=== PATIENT | male | born 1990 | race Caucasian/White ===

== ENCOUNTER 2016-05-10 21:04 | Emergency (ER) | payer OTHER ==
[2016-05-10 21:20] VITALS: BP 135/99; PULSE 78; TEMP 99; BMI 22.6
[2016-05-10] MEDS ORDERED: LORazepam 1 MG TABLET PO ONE (21:31)
--- NOTE | 2016-05-10 21:31 | PDOC ---
History of Present Illness - General History Source: Patient Exam Limitations: No Limitations - History of Present Illness Initial Comments: 05/10/16 21:48 The patient is a 25 year old male with significant past medical history of acid reflux, anxiety, and panic attacks (since his childhood) who presents to the ED with heart palpitations prior to arrival. Patient reports he was in his usual state of health, sitting down playing video games when he suddenly felt some chest discomfort with palpitations. He states his symptoms are not consistent with his previous panic attacks and thus became concern. He denies any drug or etoh use. Patient states he has not seen a psychiatrist in the past several years for his anxiety and does not take any medications for his anxiety. Patient denies and homicidal/suicidal ideation. At time of evaluation, patient does not have any complaints and states he does not palpitations. The patient denies fever, chills, cough, lightheadedness, diaphoresis, SOB, and chest pain. The patient denies abdominal pain, nausea, vomiting, and diarrhea. Allergies: NKDA Social History: Denies alcohol, tobacco, or drug use. Past Surgical History: None reported PCP: Dr. Justo Paez <Brittni Peña - Last Filed: 05/10/16 22:39> <Ho Macedo - Last Filed: 05/10/16 22:44> - General Chief Complaint: Psychiatric Stated Complaint: ANXIETY Past History <Brittni Peña - Last Filed: 05/10/16 22:39> - Past Medical History HTN: Yes ((?)) Psychiatric Problems: Yes (anxiety, depression) Suicide Attempt (Hx): Yes - Immunization History Immunization Up to Date: Yes - Psycho/Social/Smoking Cessation Hx Anxiety: Yes Suicidal Ideation: No Smoking Status: No Smoking History: Never smoked Have you smoked in the past 12 months: No Number of Cigarettes Smoked Daily: 0 Information on smoking cessation initiated: No Hx Alcohol Use: No Drug/Substance Use Hx: No Substance Use Type: None <Ho Macedo - Last Filed: 05/10/16 22:44> - Past Medical History Allergies/Adverse Reactions: Allergies Allergy/AdvReac Type Severity Reaction Status Date / Time No Known Allergies Allergy Verified 05/10/16 21:20 Home Medications: Ambulatory Orders Famotidine [Pepcid -] 40 mg PO DAILY #30 tablet 02/27/17 Review of Systems - Review of Systems Able to Perform ROS?: Yes Comments:: 05/10/16 21:48 CONSTITUTIONAL: Absent: fever, no chills, no fatigue EYES: Absent: visual changes ENT: Absent: ear pain, no sore throat CARDIOVASCULAR: +palpitations, chest discomfort Absent: chest pain RESPIRATORY: Absent: cough, no SOB GI: Absent: abdominal pain, no nausea, no vomiting, no constipation, no diarrhea GENITOURINARY: Absent: dysuria, no frequency, no hematuria MUSKULOSKELETAL: Absent: back pain, no arthralgia, no myalgia SKIN: Absent: rash NEURO: Absent: headache PSYCHIATRIC: Absent: anxiety, depression, suicidal or homicidal ideation, hallucinations <Brittni Peña - Last Filed: 05/10/16 22:39> *Physical Exam - Vital Signs Last Vital Signs Temp Pulse Resp BP Pulse Ox 99 F 78 20 135/99 100 05/10/16 21:15 05/10/16 21:15 05/10/16 21:15 05/10/16 21:15 05/10/16 21:15 - Physical Exam Comments: 05/10/16 21:48 GENERAL: Well-appearing, well-nourished. No apparent distress. HEENT: Normocephalic, atraumatic. PERRL, EOM intact. CARDIOVASCULAR: Normal S1, S2. Regular rate and rhythm. PULMONARY: Clear to auscultation bilaterally. ABDOMEN: Soft, non-distended, non-tender. EXTREMITIES: Normal ROM in all four extremities. No gross deformities. SKIN: Warm, dry. No rash NEUROLOGICAL: No focal neurological deficits. PSYCHIATRIC: Cooperative. Good eye contact. Appropriate mood and affect. <Brittni Peña - Last Filed: 05/10/16 22:39> - Vital Signs Last Vital Signs Temp Pulse Resp BP Pulse Ox 99 F 78 20 135/99 100 05/10/16 21:15 05/10/16 21:15 05/10/16 21:15 05/10/16 21:15 05/10/16 21:15 <Ho Macedo - Last Filed: 05/10/16 22:44> Heart Score/ECG Review - ECG Impressions Comment:: 05/10/16 22:00 NSR @71bpm <CaseyBrittni - Last Filed: 05/10/16 22:39> ED Treatment Course - Medications Given in the ED: ED Medications Discontinued Medications Generic Name Dose Route Start Last Admin Trade Name Helen PRN Reason Stop Dose Admin Lorazepam 2 mg 05/10/16 21:31 05/10/16 21:42 Ativan - PO 05/10/16 21:32 2 mg ONCE ONE Administration <CaseyBrittni - Last Filed: 05/10/16 22:39> Medical Decision Making - Medical Decision Making 05/10/16 22:39 I advised patient to wait and be evaluated by butcher helper for his anxiety and patient refuses to wait to be evaluated by psychiatrist and states that he wants to go home. <Brittni Peña - Last Filed: 05/10/16 22:39> *DC/Admit/Observation/Transfer - Attestations Scribe Attestion: 05/10/16 21:48 Documentation prepared by Brittni Peña, acting as medical assistant for Ho Macedo MD, MD <Brittni Peña - Last Filed: 05/10/16 22:39> - Discharge Dispostion Admit: No <Ho Macedo - Last Filed: 05/10/16 22:44> Diagnosis at time of Disposition: Panic anxiety syndrome GERD (gastroesophageal reflux disease) Qualifiers: Esophagitis presence: without esophagitis Qualified Code(s): K21.9 - Gastro- esophageal reflux disease without esophagitis - Discharge Dispostion Condition at time of disposition: Fair - Prescriptions Prescriptions: Famotidine [Pepcid -] 40 mg PO DAILY #30 tablet - Referrals Referrals: Kendrick Costa MD [Staff Physician] - Justo Paez MD [Primary Care Provider] - - Patient Instructions Printed Discharge Instructions: Panic Disorder, DI for Gastroesophageal Reflux Disease (GERD) Additional Instructions: recommended a Psychiatric Evaluation. Patient refuses to wait. He did want the office phone number.
[2016-05-10] MEDS ORDERED: LORazepam 0.5 MG TABLET ONE (21:39)
--- NOTE | 2016-05-11 13:11 | EKG ---
Test Reason : Blood Pressure : / mmHG Vent. Rate : 071 BPM Atrial Rate : 071 BPM P-R Int : 128 ms QRS Dur : 096 ms QT Int : 380 ms P-R-T Axes : 046 039 029 degrees QTc Int : 412 ms NORMAL SINUS RHYTHM EARLY REPOLARIZATION WHEN COMPARED WITH ECG OF 30-JAN-2013 19:01, NO SIGNIFICANT CHANGE WAS FOUND Confirmed by PEREZ HAMPTON MD ([id number]) on 05/11/2016 1:11:34 PM Referred By: Confirmed By:PEREZ HAMPTON MD
== END 2016-05-10 22:55 | disposition home or self-care (01) ==
LOC: SUPCPDRO 21:04 → JER 21:04
DX: F41.0 Panic disorder [episodic paroxysmal anxiety] (principal); R00.2 Palpitations; F41.9 Anxiety disorder, unspecified; K21.9 Gastro-esophageal reflux disease without esophagitis
CPT/HCPCS: 93005; 93010; 99282-25

== ENCOUNTER 2016-06-03 08:45 | Emergency (ER) | payer SELFPAY ==
[2016-06-03 08:49] VITALS: BP 127/81; PULSE 64; TEMP 98; BMI 23.7
[2016-06-03] MEDS ORDERED: IBUPROFEN 400 MG TABLET (FP) PO ONE ×3 (09:07→09:13)
--- NOTE | 2016-06-03 09:24 | PDOC ---
History of Present Illness - General Chief Complaint: Pain Stated Complaint: PAIN IN LEFT WRIST Time Seen by Provider: 06/03/16 08:50 History Source: Patient - History of Present Illness Occurred: reports: other Upper Extremity Pain Location: left: wrist Past History - Past Medical History Allergies/Adverse Reactions: Allergies Allergy/AdvReac Type Severity Reaction Status Date / Time No Known Allergies Allergy Verified 06/03/16 08:49 Home Medications: Ambulatory Orders Famotidine [Pepcid -] 40 mg PO DAILY #30 tablet 05/10/16 Arm Brace [Wrist Brace] 1 each ASDIR #1 each 06/03/16 HTN: Yes ((?)) Psychiatric Problems: Yes (anxiety, depression) Suicide Attempt (Hx): Yes - Immunization History Immunization Up to Date: Yes - Psycho/Social/Smoking Cessation Hx Anxiety: Yes Suicidal Ideation: No Smoking Status: No Smoking History: Never smoked Have you smoked in the past 12 months: No Number of Cigarettes Smoked Daily: 0 Information on smoking cessation initiated: No Hx Alcohol Use: No Drug/Substance Use Hx: No Substance Use Type: None Review of Systems - Review of Systems Musculoskeletal: Yes: Joint Pain. No: Joint Swelling *Physical Exam - Vital Signs Last Vital Signs Temp Pulse Resp BP Pulse Ox 98 F 64 18 127/81 100 06/03/16 08:46 06/03/16 08:46 06/03/16 08:46 06/03/16 08:46 06/03/16 08:46 - Physical Exam General Appearance: Yes: Appropriately Dressed. No: Apparent Distress HEENT: positive: Normal Voice Neck: positive: Supple Respiratory/Chest: negative: Respiratory Distress Extremity: positive: Normal Inspection, Tender. negative: Swelling Integumentary: positive: Dry, Warm Neurologic: positive: Fully Oriented, Alert, Normal Mood/Affect ED Treatment Course - RADIOLOGY Radiology Studies Ordered: Category Date Time Status WRIST-LEFT [RAD] Stat Radiology 06/03/16 09:06 Ordered - Medications Given in the ED: ED Medications Discontinued Medications Generic Name Dose Route Start Last Admin Trade Name Freq PRN Reason Stop Dose Admin Ibuprofen 800 mg 06/03/16 09:09 06/03/16 09:09 Motrin - PO 06/03/16 09:10 800 mg NOW ONE Administration Medical Decision Making - Medical Decision Making 06/03/16 09:14 26 yo M, no sig hx, here w/ pain to L wrist s/p lifting heavy safe at work 2 days ago. States site continue to hurt w/ movement. Has not taken anything for pain. Pt well remy in NAD w/ +ttp tp ulnar aspect of L wrist, no swelling or deformity. M/l sprain but will get XR 2/2 severe pain. Pain control in ED 06/03/16 09:28 XR neg for fx. Rx for wrist brace sent to pharmacy *DC/Admit/Observation/Transfer Diagnosis at time of Disposition: Wrist sprain Qualifiers: Encounter type: initial encounter Laterality: left Qualified Code(s): S63.502A - Unspecified sprain of left wrist, initial encounter - Discharge Dispostion Disposition: HOME Condition at time of disposition: Good - Prescriptions Prescriptions: Arm Brace [Wrist Brace] 1 each ASDIR #1 each - Patient Instructions Additional Instructions: Take 600-800mg motrin otc as needed
== END 2016-06-03 09:32 | disposition home or self-care (01) ==
LOC: JERFT 08:45
DX: S63.592A Other specified sprain of left wrist, initial encounter (principal); X50.0XXA Overexertion from strenuous movement or load, initial encounter; X50.9XXA Other and unspecified overexertion or strenuous movements or postures, initial encounter; Y93.89 Activity, other specified; Y92.59 Other trade areas as the place of occurrence of the external cause; Y99.0 Civilian activity done for income or pay
CPT/HCPCS: 73110-TC-LT; 99281-25

== ENCOUNTER 2016-07-30 20:08 | Emergency (ER) | payer OTHER ==
[2016-07-30 20:22] VITALS: BP 127/84; PULSE 79; TEMP 97.2; BMI 25.3
--- NOTE | 2016-07-30 20:39 | PDOC ---
History of Present Illness - General History Source: Patient Exam Limitations: No Limitations - History of Present Illness Initial Comments: 07/30/16 22:08 The patient is a 26 year old male, with no significant past medical history, who presents to the emergency department with back pain onset today. He reports that he was working at [employer] today and when he went home to do laundry with his , he attempted to lemon picker something and his back started to hurt to the point where it was difficult for him to move. He describes his back pain as ranging from moderate to severe, without radiation, localized in his mid and low back bilaterally. He notes that his back pain is exacerbated when he moves in certain positions. He denies taking anything for the pain. The patient denies chest pain, shortness of breath, headache and dizziness. Denies fever, chills, nausea, vomit, diarrhea and constipation. Denies dysuria, frequency, urgency and hematuria. Allergies: None Past surgical history: None reported Social history: No alcohol, tobacco or drug use reported <Scooby Up - Last Filed: 07/30/16 22:15> <Michele Elmore - Last Filed: 07/31/16 00:27> - General Chief Complaint: Back Pain Stated Complaint: BACK PAIN Time Seen by Provider: 07/30/16 20:33 Past History <Scooby Up - Last Filed: 07/30/16 22:15> - Immunization History Immunization Up to Date: Yes - Psycho/Social/Smoking Cessation Hx Anxiety: No Suicidal Ideation: No Smoking History: Never smoked Have you smoked in the past 12 months: No Information on smoking cessation initiated: No Hx Alcohol Use: No Drug/Substance Use Hx: No Substance Use Type: None <Michele Elmore - Last Filed: 07/31/16 00:27> - Past Medical History Allergies/Adverse Reactions: Allergies Allergy/AdvReac Type Severity Reaction Status Date / Time No Known Allergies Allergy Verified 07/30/16 20:20 Home Medications: Ambulatory Orders NK [No Known Home Medication] 07/30/16 Review of Systems - Review of Systems Able to Perform ROS?: Yes Comments:: 07/30/16 22:08 CONSTITUTIONAL: No fever, no chills, no fatigue EYES: No visual changes ENT: No ear pain, no sore throat CARDIOVASCULAR: No chest pain, no palpitations RESPIRATORY: No cough, no SOB GI: No abdominal pain, no nausea, no vomiting, no constipation, no diarrhea GENITOURINARY: No dysuria, no frequency, no hematuria MUSKULOSKELETAL: (+) Back pain. No joint pain, no myalgias SKIN: No rash NEURO: No headache <Scooby Up - Last Filed: 07/30/16 22:15> *Physical Exam - Vital Signs Last Vital Signs Temp Pulse Resp BP Pulse Ox 97.2 F L 79 20 127/84 98 07/30/16 20:20 07/30/16 20:20 07/30/16 20:20 07/30/16 20:20 07/30/16 20:20 - Physical Exam Comments: 07/30/16 22:08 CONSTITUTIONAL: Well-appearing; well-nourished; in no apparent distress HEAD: Normocephalic; atraumatic EYES: PERRL; EOM intact ENMT: External appears normal; normal oropharynx NECK: Supple; non-tender; no cervical lymphadenopathy CARD: Normal S1, S2; no murmurs, rubs, or gallops RESP: Normal chest excursion with respiration; breath sounds clear and equal bilaterally; no wheezes, rhonchi, or rales ABD: Soft, non-distended; non-tender; no palpable organomegaly, no palpable hernias SKIN: Warm, dry, no rash NEURO: No focal neurological deficiencies. <Scooby Up - Last Filed: 07/30/16 22:15> - Vital Signs Last Vital Signs Temp Pulse Resp BP Pulse Ox 97.2 F L 79 20 127/84 98 07/30/16 20:20 07/30/16 20:20 07/30/16 20:20 07/30/16 20:20 07/30/16 20:20 - Physical Exam Comments: EXTR: No obvious deformity; full range of motion at the hip/knee/ankle bilaterally; patient is able to plantar/dorsi flex her feet without difficulty ; DTRs are +2 at the knees/ankle joints bilaterally; patient is able to ambulate with a slight limp due to pain. straight leg raise is negative b/l. BACK: No obvious deformity; no midline tenderness to palpation; there is bilateral paraspinal reproducible tenderness along the distal thoracic and proximal lumbar vertebra <Michele Elmore - Last Filed: 07/31/16 00:27> ED Treatment Course - Medications Given in the ED: ED Medications Discontinued Medications Generic Name Dose Route Start Last Admin Trade Name Helen PRN Reason Stop Dose Admin Diazepam 5 mg 07/30/16 20:44 07/30/16 20:52 Valium - PO 07/30/16 20:45 5 mg ONCE ONE Administration Ketorolac Tromethamine 60 mg 07/30/16 20:44 07/30/16 20:52 Toradol Injection - IM 07/30/16 20:45 60 mg ONCE ONE Administration <Scooby Up - Last Filed: 07/30/16 22:15> Medical Decision Making - Medical Decision Making 07/30/16 22:16 The patient is able to ambulate without assistance. <Scooby Up - Last Filed: 07/30/16 22:15> - Medical Decision Making 07/30/16 23:12 Patient is a 26-year-old male who presents with atraumatic lower back pain after lifting heavy objects at work. In the ER, patient is neurovascularly intact bilaterally without evidence of cord compression or spinal stenosis. We' ll administer Toradol and Valium for symptomatic relief. We will discharge. 07/30/16 23:36 Patient reassessed. Patient is able to ambulate without difficulty and is able to void without difficulty. Will discharge. <Michele Elmore - Last Filed: 07/31/16 00:27> *DC/Admit/Observation/Transfer - Attestations Scribe Attestion: 07/30/16 22:08 Documentation prepared by Scooby Up, acting as medical detailist for Michele Elmore MD <Scooby Up - Last Filed: 07/30/16 22:15> - Attestations Physician Attestion: 07/30/16 23:09 The documentation was prepared by the scribe under my direct supervision. I have reviewed the documentation which correctly represents the findings, medical decision-making and critical action taken by me. <Michele Elmore - Last Filed: 07/31/16 00:27> Diagnosis at time of Disposition: Muscle strain Acute low back pain Qualifiers: Back pain laterality: unspecified Sciatica presence: without sciatica Qualified Code(s): M54.5 - Low back pain - Discharge Dispostion Disposition: HOME Condition at time of disposition: Stable - Referrals Referrals: Alireza Pascal MD [Primary Care Provider] - - Patient Instructions Printed Discharge Instructions: DI for Low Back Pain Additional Instructions: You have been diagnosed with acute low back pain and muscle strain. You should take medications as directed. You should not left any heavy material for the next week; you may apply a heating pad as needed for comfort. He should be reevaluated by a primary care physician and 3-4 days for further work clearance. - Post Discharge Activity Work/School Note: Back to Work
[2016-07-30] MEDS ORDERED: diazePAM 5 MG TABLET PO ONE (20:44)
[2016-07-30] MEDS ORDERED: KETOROLAC TROMETHAMINE 60 MG/2 ML VIAL IM ONE (20:44)
[2016-07-30] MEDS ORDERED: KETOROLAC TROMETHAMINE 60 MG/2 ML VIAL ONE (20:46)
[2016-07-30] MEDS ORDERED: diazePAM 5 MG TABLET ONE (20:46)
[2016-07-30 23:56] LABS: URINE APPEARANCE CLEAR; URINE BILIRUBIN NEGATIVE (NEGATIVE); URINE BLOOD NEGATIVE (NEGATIVE); URINE COLOR YELLOW; URINE GLUCOSE (UA) NEGATIVE (NEGATIVE); URINE KETONE TRACE (NEGATIVE); URINE LEUK ESTERASE NEGATIVE (NEGATIVE); URINE NITRITE NEGATIVE (NEGATIVE); URINE PROTEIN NEGATIVE (NEGATIVE); URINE UROBILINOGEN NEGATIVE E.U./dl (0.2-1.0)
== END 2016-07-31 00:32 | disposition home or self-care (01) ==
LOC: MERGE 20:08 → JER 20:08
PROC: 3E0233Z Introduction of Anti-inflammatory into Muscle, Percutaneous Approach (ICD-10-PCS; principal; 2016-07-30)
DX: S39.012A Strain of muscle, fascia and tendon of lower back, initial encounter (principal); X50.0XXA Overexertion from strenuous movement or load, initial encounter; Y93.E2 Activity, laundry; Y92.018 Other place in single-family (private) house as the place of occurrence of the external cause
CPT/HCPCS: 81003; 96372; 99283-25

== ENCOUNTER 2017-05-01 21:54 | Emergency (ER) | payer OTHER ==
[2017-05-01 22:08] VITALS: BP 143/90; PULSE 102; TEMP 99.6; BMI 23.3
--- NOTE | 2017-05-01 23:01 | PDOC ---
History of Present Illness <Jie Kerr - Last Filed: 05/01/17 23:26> - General History Source: Patient, Significant Other Exam Limitations: No Limitations, Other <Niles Calvillo - Last Filed: 05/02/17 02:15> - General Chief Complaint: Chronic pain Stated Complaint: LT SHOULDER PAIN Time Seen by Provider: 05/01/17 23:01 Past History - Past Medical History COPD: No HTN: Yes ((?)) Psychiatric Problems: Yes (anxiety, depression) - Immunization History Immunization Up to Date: Yes - Suicide/Smoking/Psychosocial Hx Smoking Status: No Smoking History: Unknown if ever smoked Have you smoked in the past 12 months: No Number of Cigarettes Smoked Daily: 0 Hx Alcohol Use: No Drug/Substance Use Hx: No Substance Use Type: None <KerrJie - Last Filed: 05/01/17 23:26> <Niles Calvillo - Last Filed: 05/02/17 02:15> - Past Medical History Allergies/Adverse Reactions: Allergies Allergy/AdvReac Type Severity Reaction Status Date / Time No Known Allergies Allergy Verified 05/01/17 22:06 Home Medications: Ambulatory Orders Famotidine [Pepcid -] 40 mg PO DAILY #30 tablet 05/10/16 Review of Systems - Review of Systems Able to Perform ROS?: Yes Comments:: 05/02/17 02:13 GENERAL/CONSTITUTIONAL: No fever or chills. No weakness. HEAD, EYES, EARS, NOSE AND THROAT: +Left eye pain. change in vision. No ear pain or discharge. No sore throat. CARDIOVASCULAR: No chest pain or shortness of breath. RESPIRATORY: No cough, wheezing, or hemoptysis. GASTROINTESTINAL: No nausea, vomiting, diarrhea or constipation. GENITOURINARY: No dysuria, frequency, or change in urination. MUSCULOSKELETAL: +Left shoulder pain. +Left neck pain. No joint or muscle swelling or pain. No back pain. SKIN: No rash NEUROLOGIC: +Left arm numbness. No headache, vertigo, loss of consciousness, ENDOCRINE: No increased thirst. No abnormal weight change. HEMATOLOGIC/LYMPHATIC: No anemia, easy bleeding, or history of blood clots. ALLERGIC/IMMUNOLOGIC: No hives or skin allergy. <Niles Calvillo - Last Filed: 05/02/17 02:15> *Physical Exam - Vital Signs Last Vital Signs Temp Pulse Resp BP Pulse Ox 99.6 F 102 H 18 143/90 98 05/01/17 22:07 05/01/17 22:07 05/01/17 22:07 05/01/17 22:07 05/01/17 22:07 <Jie Kerr - Last Filed: 05/01/17 23:26> - Vital Signs Last Vital Signs Temp Pulse Resp BP Pulse Ox 99.6 F 102 H 18 143/90 98 05/01/17 22:07 05/01/17 22:07 05/01/17 22:07 05/01/17 22:07 05/01/17 22:07 - Physical Exam Comments: 05/02/17 02:14 GENERAL: Awake, alert, and fully oriented, in no acute distress HEAD: No signs of trauma EYES: PERRLA, EOMI, sclera anicteric, conjunctiva clear ENT: Auricles normal inspection, hearing grossly normal, nares patent, oropharynx clear without exudates. Moist mucosa NECK: Normal ROM, supple, no lymphadenopathy, JVD, or masses LUNGS: Breath sounds equal, clear to auscultation bilaterally. No wheezes, and no crackles HEART: Regular rate and rhythm, normal S1 and S2, no murmurs, rubs or gallops ABDOMEN: Soft, nontender, normoactive bowel sounds. No guarding, no rebound. No masses EXTREMITIES: Normal range of motion, no edema. No clubbing or cyanosis. No cords, erythema, or tenderness NEUROLOGICAL: Cranial nerves II through XII grossly intact. Normal speech, normal gait SKIN: Warm, Dry, normal turgor, no rashes or lesions noted. <Niles Calvillo - Last Filed: 05/02/17 02:15> ED Treatment Course - Medications Given in the ED: ED Medications Discontinued Medications Generic Name Dose Route Start Last Admin Trade Name Freq PRN Reason Stop Dose Admin Acetaminophen 650 mg 05/01/17 23:24 05/01/17 23:31 Tylenol - PO 05/01/17 23:25 650 mg ONCE ONE Administration <Niles Calvillo - Last Filed: 05/02/17 02:15> Medical Decision Making - Medical Decision Making 05/01/17 23:24 Pt comes with left sided headache. He got nervous, has a hx of panic attacks, felt tonling and numbness in the left hand and fingers and arm and he had blurry vision in his eye on the left. Tachycardic when he called the EMS; they placed an IV line, but gave no meds. Pt's exam is completely normal in the ER and he will be given tylenol in the ER. Home with outpatient neuro and ophtho followup 05/01/17 23:26 HR is 88 in the ER <Jie Kerr - Last Filed: 05/01/17 23:26> *DC/Admit/Observation/Transfer <Jie Kerr - Last Filed: 05/01/17 23:26> - Attestations Scribe Attestion: 05/02/17 02:14 Documentation prepared by Niles Calvillo, acting as hospitalist medical director for Jie Kerr MD/DO. <Niles Calvillo - Last Filed: 05/02/17 02:15> Diagnosis at time of Disposition: Panic attack - Discharge Dispostion Disposition: HOME Condition at time of disposition: Stable - Referrals Referrals: Valentin Arreola MD [Staff Physician] - Chidi Maguire MD [Staff Physician] - - Patient Instructions Printed Discharge Instructions: DI for Panic Disorder
[2017-05-01] MEDS ORDERED: ACETAMINOPHEN 325 MG TABLET (FP) PO ONE (23:24)
[2017-05-01] MEDS ORDERED: ACETAMINOPHEN 325 MG TABLET (FP) ONE (23:26)
== END 2017-05-01 23:44 | disposition home or self-care (01) ==
LOC: JER 21:54
DX: F41.0 Panic disorder [episodic paroxysmal anxiety] (principal)
CPT/HCPCS: 99282-25

== ENCOUNTER 2017-05-08 18:53 | Emergency (ER) | payer OTHER ==
[2017-05-08 18:59] VITALS: BP 127/87; PULSE 134; TEMP 98.1; BMI 24.2
[2017-05-08] MEDS ORDERED: SODIUM CHLORIDE 1,000 ML IV STA ×2 (19:17→21:07)
--- NOTE | 2017-05-08 19:49 | PDOC ---
History of Present Illness - General Chief Complaint: Chest Pain Stated Complaint: CHEST PAIN Time Seen by Provider: 05/08/17 19:17 History Source: Patient Exam Limitations: No Limitations - History of Present Illness Initial Comments: 05/08/17 19:36 Patient is a 26M with history of anxiety here today complaining of palpitations , shortness of breath and chest pain. He states these symptoms started four days ago. He states that he had blood work and an EKG done by a economic development coordinator affiliated with [facility] as an outpatient. He was supposed to have a DVT study done yesterday but there was no one available to do the study. The work up was normal. The patient does not remember the physicians name. He is also complaining of headache, leg swelling, and abdominal pain. The headache has been going on for a week, waxing and waning in the frontal aspect of his head. He states his leg has been swollen for the past week. He states the abdominal pain is located in the lower abdomen and moves to the top when he lays down. No history of blood clots or recent immobilization. Patient denies any illicit drug use. Denies syncope and pre-syncope. Endorses history of anxiety but states that he's never been prescribed anything for anxiety. FMH: Father had a triple bypass at 40 Past History - Past Medical History Allergies/Adverse Reactions: Allergies Allergy/AdvReac Type Severity Reaction Status Date / Time No Known Allergies Allergy Verified 05/08/17 18:54 Home Medications: Ambulatory Orders Famotidine [Pepcid -] 40 mg PO DAILY #30 tablet 05/10/16 COPD: No HTN: Yes ((?)) Psychiatric Problems: Yes (anxiety, depression) - Immunization History Immunization Up to Date: Yes - Suicide/Smoking/Psychosocial Hx Smoking Status: No Smoking History: Never smoked Have you smoked in the past 12 months: No Number of Cigarettes Smoked Daily: 0 Hx Alcohol Use: No Drug/Substance Use Hx: No Substance Use Type: None Review of Systems - Review of Systems Comments:: 05/08/17 19:49 GENERAL/CONSTITUTIONAL: Positive for fevers and chills, subjective. HEAD, EYES, EARS, NOSE AND THROAT: No change in vision. No ear pain or discharge. No sore throat. CARDIOVASCULAR: Positive for chest pain and shortness of breath RESPIRATORY: No cough, wheezing, or hemoptysis. GASTROINTESTINAL: Positive for nausea and vomiting. Negative for diarrhea or constipation. GENITOURINARY: No dysuria, frequency, or change in urination. MUSCULOSKELETAL: Positive for left leg pain. No neck or back pain. SKIN: No rash NEUROLOGIC: Positive for headache. Negative for vertigo, loss of consciousness, or change in strength/sensation. HEMATOLOGIC/LYMPHATIC: No anemia, easy bleeding, or history of blood clots. ALLERGIC/IMMUNOLOGIC: No hives or skin allergy. *Physical Exam - Vital Signs Last Vital Signs Temp Pulse Resp BP Pulse Ox 98.1 F 134 H 22 127/87 99 05/08/17 18:54 05/08/17 18:54 05/08/17 18:54 05/08/17 18:54 05/08/17 18:54 - Physical Exam Comments: 05/08/17 19:51 GENERAL: Awake, alert, and fully oriented, in no acute distress, tearful HEAD: No signs of trauma, normocephalic, atraumatic EYES: PERRLA, EOMI, sclera anicteric, conjunctiva clear ENT: Auricles normal inspection, hearing grossly normal, nares patent, oropharynx clear without exudates. Moist mucosa NECK: Normal ROM, supple, no lymphadenopathy, JVD, or masses LUNGS: No distress, speaks full sentences, clear to auscultation bilaterally HEART: Tachycardic, normal S1 and S2, no murmurs, rubs or gallops, peripheral pulses normal and equal bilaterally. ABDOMEN: Soft, nontender. No guarding, no rebound. No masses EXTREMITIES: Normal inspection, Normal range of motion, no edema. No clubbing or cyanosis. NEUROLOGICAL: Cranial nerves II through XII grossly intact. Normal speech, no focal sensorimotor deficits SKIN: Warm, Dry, normal turgor, no rashes or lesions noted. ED Treatment Course - LABORATORY CBC & Chemistry Diagram: 05/08/17 19:50 05/08/17 19:50 - RADIOLOGY Radiology Studies Ordered: Category Date Time Status CHEST X-RAY PORTABLE* [RAD] Stat Radiology 05/08/17 19:17 Ordered Medical Decision Making - Medical Decision Making 05/08/17 19:53 Patient is a 26M with history of anxiety here today with chest pain, shortness of breath and palpitations. Vital signs notable for tachycardia in the 130s. HR varied from 100 to 145 during my exam. Afebrile. Exam notable for normal neurological exam and tearful patient. Patient states that he is extremely worried and wants help. Differential diagnosis includes, but is not limited to: ACS, arrhythmia, PE, anxiety. Will attempt to rule out serious cardiac pathology. Will evaluate with CBC, CMP, trop, d-dimer, pt/inr, ekg, cxr. Will treat with fluids. 05/08/17 21:30 Laboratory Tests 05/08/17 05/08/17 05/08/17 19:50 19:50 19:50 WBC 8.8 Hgb 16.3 D Hct 47.7 Plt Count 218 D-Dimer 243 BUN 13 Creatinine 1.1 Creat Clearance w eGFR > 60 Troponin I < 0.02 TSH 2.30 Patient remains tachycardic despite fluids. Will give 1L NS and zofran for patient's nausea. CBC normal. D-dimer negative. TSH normal. Trop negative. Kidney function normal. Will do CTA chest/dvt study due to patient's persistent tachycardia. 05/08/17 23:54 CTA negative for PE. DVT study pending. 05/09/17 00:13 DVT negative. 05/09/17 00:18 Patient reports feeling better, will discharge with instructions to see PCP. Will setup with [facility]. HR 91 at discharge. *DC/Admit/Observation/Transfer Diagnosis at time of Disposition: Chest pain - Discharge Dispostion Disposition: HOME Condition at time of disposition: Good Admit: No - Referrals Referrals: Ze Shrestha MD [Staff Physician] - - Patient Instructions Printed Discharge Instructions: DI for Chest Pain Additional Instructions: Please return if you have any new, worsening or concerning symptoms. Please call Dr Shrestha's office to set up an appointment for a PCP tomorrow. A number has been provided to you as a referral. - Post Discharge Activity
[2017-05-08 19:57] LABS: BASO % 0.7 % (0-2.0); EOS % 1.4 % (0-4.5); HEMATOCRIT 47.7 % (35.4-49); HEMOGLOBIN 16.3 GM/dL (11.7-16.9); LYMPH % 17.3 % (8-40); MCH 27.8 pg (25.7-33.7); MCHC 34.2 g/dl (32.0-35.9); MEAN CELL VOLUME 81.3 fl (80-96); MEAN PLT VOLUME 8.2 fl (7.5-11.1); MONO % 7.4 % (3.8-10.2); NEUT % 73.2 % (42.8-82.8); PLATELET COUNT 218 K/MM3 (134-434); RBC 5.87 M/mm3 (4.00-5.60); RDW 13.2 % (11.9-15.9); WHITE BLOOD COUNT 8.8 K/mm3 (4.0-10.0)
--- NOTE | 2017-05-08 20:04 | PDOC ---
Attending Attestation - HPI HPI: 05/08/17 20:52 Pt is a 26 yo M with a PMHx of HTN, GERD, Anxiety, Depression who presents to the ED with chest pain for the past 3-4 days. Patient reports L sided chest pain with associated palpitations, shortness of breath and nausea. Patient reports recent unexplained ~20 pound weight loss and decreased appetite. Patient denies any recent travel/illnesses. Patient reports family history of cardiac disease. PCP: None - Physicial Exam PE: 05/08/17 21:10 GENERAL: Awake, alert, and fully oriented, in no acute distress HEAD: No signs of trauma EYES: PERRLA, EOMI, sclera anicteric, conjunctiva clear ENT: Auricles normal inspection, hearing grossly normal, nares patent, oropharynx clear without exudates. Moist mucosa NECK: Normal ROM, supple, no lymphadenopathy, JVD, or masses LUNGS: Breath sounds equal, clear to auscultation bilaterally. No wheezes, and no crackles HEART: Regular rate and rhythm, normal S1 and S2, no murmurs, rubs or gallops ABDOMEN: Soft, nontender, normoactive bowel sounds. No guarding, no rebound. No masses EXTREMITIES: Normal range of motion, no edema. No clubbing or cyanosis. No cords, erythema, or tenderness NEUROLOGICAL: Cranial nerves II through XII grossly intact. Normal speech, normal gait SKIN: Warm, Dry, normal turgor, no rashes or lesions noted. - Medical Decision Making 05/08/17 20:52 Documentation prepared by Marychuy Mohr, acting as medical records analyst for Deepika Stevens MD <Marychuy Mohr - Last Filed: 05/08/17 21:10> - Resident Resident Name: Sharif Montes - ED Attending Attestation I have performed the following: I have examined & evaluated the patient, The case was reviewed & discussed with the resident, I agree w/resident's findings & plan, Exceptions are as noted - Medical Decision Making Pt recently presented to ED for similar symptoms, resolved on his arrival. Now with tachycardia up to mid 130s, associated with weight loss. He notes SOB associated with exercise, dec exercise tolerance since symptoms have started. Will obtain dopplers to r/o DVT, CTA to r/o PE, and TSH to check for hyperthyroid. <Deepika Stevens - Last Filed: 05/08/17 22:26>
[2017-05-08 20:16] LABS: INR 1.18 (0.82-1.09); PROTHROMBIN TIME (PATIENT) 13.3 SEC (9.98-11.88)
[2017-05-08 20:30] LABS: ALBUMIN 4.7 g/dl (3.4-5.0); ANION GAP 11 (8-16); BILIRUBIN,TOTAL 0.7 mg/dL (0.2-1.0); BLOOD UREA NITROGEN 13 mg/dL (7-18); CALCIUM 9.2 mg/dL (8.5-10.1); CHLORIDE 103 mmol/L (98-107); CO2 24 mmol/L (21-32); CREATININE 1.1 mg/dL (0.7-1.3); GLUCOSE,RANDOM 100 mg/dL (74-106); POTASSIUM 4.2 mmol/L (3.5-5.1); SGOT/AST 17 U/L (15-37); SGPT/ALT < 6 U/L (12-78); SODIUM 138 mmol/L (136-145); TOT PROT 8.5 g/dl (6.4-8.2)
[2017-05-08 20:32] LABS: ALK PHOS 74 U/L (45-117)
[2017-05-08] MEDS ORDERED: ONDANSETRON 4 MG/2 ML VIAL IVPUSH ONE (21:07)
[2017-05-08] MEDS ORDERED: ONDANSETRON 4 MG/2 ML VIAL ONE (21:40)
--- NOTE | 2017-05-10 11:38 | EKG ---
Test Reason : Blood Pressure : / mmHG Vent. Rate : 103 BPM Atrial Rate : 103 BPM P-R Int : 118 ms QRS Dur : 086 ms QT Int : 328 ms P-R-T Axes : 068 039 035 degrees QTc Int : 429 ms SINUS TACHYCARDIA OTHERWISE NORMAL ECG WHEN COMPARED WITH ECG OF 10-MAY-2016 21:55, ST NO LONGER ELEVATED IN LATERAL LEADS Confirmed by MD Mtz Daniel ([id number]) on 05/10/2017 11:38:03 AM Referred By: Confirmed By:Onur Mtz MD
== END 2017-05-09 00:55 | disposition home or self-care (01) ==
LOC: JER 18:53
PROC: 3E033GC Introduction of Other Therapeutic Substance into Peripheral Vein, Percutaneous Approach (ICD-10-PCS; principal; 2017-05-08)
PROC: 3E0337Z Introduction of Electrolytic and Water Balance Substance into Peripheral Vein, Percutaneous Approach (ICD-10-PCS; 2017-05-08)
DX: R07.89 Other chest pain (principal); M79.605 Pain in left leg; I10 Essential (primary) hypertension; F41.8 Other specified anxiety disorders
CPT/HCPCS: 36415; 71045-TC-FY; 71275-TC; 80053; 82550; 83735; 84443; 84484; 85025; 85379; 85610; 93005; 93010; 93970-TC; 96361; 96374; 99282-25

== ENCOUNTER 2017-06-07 09:25 | Day surgery (SDC) | payer OTHER ==
[2017-05-31 14:27] VITALS: BMI 23.8
[2017-06-07] MEDS ORDERED: PROPOFOL 20 ML ONE ×2 (10:56)
[2017-06-07 11:42] VITALS: TEMP 98.7
[2017-06-07 12:23] VITALS: BP 112/68; PULSE 65
[2017-06-07 12:33] LABS: BASO % 0.3 % (0-2.0); EOS % 5.5 % (0-4.5); HEMATOCRIT 41.4 % (35.4-49); HEMOGLOBIN 14.1 GM/dL (11.7-16.9); LYMPH % 15.8 % (8-40); MCH 28.1 pg (25.7-33.7); MEAN CELL VOLUME 82.7 fl (80-96); MEAN PLT VOLUME 8.5 fl (7.5-11.1); MONO % 7.4 % (3.8-10.2); PLATELET COUNT 169 K/MM3 (134-434); RBC 5.01 M/mm3 (4.00-5.60); RDW 13.4 % (11.9-15.9); WHITE BLOOD COUNT 5.3 K/mm3 (4.0-10.0)
[2017-06-07 12:58] LABS: ALBUMIN 4.1 g/dl (3.4-5.0); ALK PHOS 60 U/L (45-117); ANION GAP 10 (8-16); BILIRUBIN,TOTAL 0.5 mg/dL (0.2-1.0); BLOOD UREA NITROGEN 10 mg/dL (7-18); CALCIUM 8.9 mg/dL (8.5-10.1); CHLORIDE 104 mmol/L (98-107); CO2 27 mmol/L (21-32); GLUCOSE,RANDOM 91 mg/dL (74-106); POTASSIUM 4.1 mmol/L (3.5-5.1); SGOT/AST 11 U/L (15-37); SGPT/ALT 7 U/L (12-78); SODIUM 141 mmol/L (136-145)
--- NOTE | 2017-06-08 12:43 | PATH ---
Surgical Pathology Report Patient Name: BOUCHRA ZAPATA [facility]. Rec. #: [id number] /Age/Gender: 1990 (Age: 27) / M Account: [id number] Location: U-ENDOSCOPY Taken: 06/07/2017 Received: 06/07/2017 Reported: 06/08/2017 Physicians: Douglas Davenport D.O. Specimen(s) Received A: BX DUODENUM B: BX BODY/ANGULARIS Clinical History Preoperative diagnosis: Abdominal pain Postoperative diagnosis: Same Final Diagnosis A. DUODENUM, BIOPSY: DUODENAL MUCOSA WITH MILD CHRONIC DUODENITIS, GEOVANNY'S GLAND HYPERPLASIA, AND PRESERVED VILLOUS ARCHITECTURE. B. STOMACH, BODY/ANGULARIS, BIOPSY: GASTRIC BODY MUCOSA WITH MILD TO MODERATE CHRONIC GASTRITIS. IMMUNOHISTOCHEMICAL STAIN FOR H. PYLORI IS NEGATIVE. Electronically Signed Leonor Hollingsworth M.D. Gross Description A. Received in formalin, labeled "biopsy duodenum" are 3 munoz, irregular portions of soft tissue ranging from 0.2-0.4 cm. in greatest dimension. The specimens are submitted in toto in one cassette. B. Received in formalin, labeled "biopsy body/angularis" are 4 munoz, irregular portions of soft tissue ranging from 0.1-0.3 cm. in greatest dimension. The specimens are submitted in toto in one cassette. 06/07/201706/07/2017
== END 2017-06-07 13:16 | disposition home or self-care (01) ==
LOC: JASU-ENDO 09:25
PROVIDERS: ATTEND Internal Medicine Gastroenterology
PROC: 0DB68ZX Excision of Stomach, Via Natural or Artificial Opening Endoscopic, Diagnostic (ICD-10-PCS; 2017-06-07)
PROC: 0DB98ZX Excision of Duodenum, Via Natural or Artificial Opening Endoscopic, Diagnostic (ICD-10-PCS; principal; 2017-06-07 11:15)
DX: R10.9 Unspecified abdominal pain (principal)
CPT/HCPCS: 36415; 80053; 82941; 85025; 86140; 88305-TC; 88342-TC

== ENCOUNTER 2017-06-17 05:32 | Emergency (ER) | payer OTHER ==
[2017-06-17 05:35] VITALS: BMI 24.0
[2017-06-17] MEDS ORDERED: SODIUM CHLORIDE 1,000 ML IV STA (05:45)
[2017-06-17] MEDS ORDERED: ONDANSETRON 4 MG/2 ML VIAL IVPUSH ONE (05:45)
[2017-06-17] MEDS ORDERED: ACETAMINOPHEN 1000 MG/100 ML VIAL (NON FORMULARY) IVPB ONE (05:45)
--- NOTE | 2017-06-17 06:00 | PDOC ---
History of Present Illness - General Chief Complaint: Pain, Acute Stated Complaint: ABD PAIN Time Seen by Provider: 06/17/17 05:35 History Source: Patient Exam Limitations: No Limitations - History of Present Illness Initial Comments: 06/17/17 05:55 Patient is a 27M with history of anxiety and chronic abdominal pain here today complaining of abdominal pain that onset yesterday night. He states that he has a colonoscopy planned for today at 11am, and that he started the bowel prep for his colonoscopy tonight. He reports associated nausea, vomiting, fevers and chills. He states that he had one small episode of vomiting while drinking miralax for his bowel prep. Denies pain with urination. Patient reports several episodes of diarrhea this morning. Past History - Past Medical History Allergies/Adverse Reactions: Allergies Allergy/AdvReac Type Severity Reaction Status Date / Time famotidine [From Pepcid] Allergy Rash Verified 06/17/17 05:33 Home Medications: Ambulatory Orders Pantoprazole Sodium [Protonix] 40 mg PO DAILY 05/31/17 Anemia: No Asthma: No Cancer: No Cardiac Disorders: Yes (PALPITATIONS) CVA: No COPD: No CHF: No Dementia: No Diabetes: No GI Disorders: Yes (GERD) Disorders: No HTN: Yes Hypercholesterolemia: No Liver Disease: No Psychiatric Problems: Yes (anxiety, depression) Seizures: No Thyroid Disease: No - Immunization History Immunization Up to Date: Yes - Suicide/Smoking/Psychosocial Hx Smoking Status: No Smoking History: Never smoked Have you smoked in the past 12 months: No Number of Cigarettes Smoked Daily: 0 Information on smoking cessation initiated: No Hx Alcohol Use: No Drug/Substance Use Hx: No Substance Use Type: None Hx Substance Use Treatment: No Review of Systems - Review of Systems Comments:: 06/17/17 05:58 GENERAL/CONSTITUTIONAL: No fever or chills. No weakness. HEAD, EYES, EARS, NOSE AND THROAT: No change in vision. No sore throat. CARDIOVASCULAR: No chest pain or shortness of breath RESPIRATORY: No cough, wheezing, or hemoptysis. GASTROINTESTINAL: Positive for nausea, vomiting, diarrhea. GENITOURINARY: No dysuria, frequency, or change in urination. MUSCULOSKELETAL: No joint or muscle swelling or pain. No neck or back pain. SKIN: No rash NEUROLOGIC: No headache, vertigo, loss of consciousness, or change in strength/ sensation. ENDOCRINE: No increased thirst. No abnormal weight change ALLERGIC/IMMUNOLOGIC: No hives or skin allergy. *Physical Exam - Vital Signs Last Vital Signs Temp Pulse Resp BP Pulse Ox 71 20 133/82 98 06/17/17 05:33 06/17/17 05:33 06/17/17 05:33 06/17/17 05:33 - Physical Exam Comments: 06/17/17 06:01 GENERAL: Awake, alert, and fully oriented, in no acute distress HEAD: No signs of trauma, normocephalic, atraumatic EYES: PERRLA, EOMI, sclera anicteric, conjunctiva clear ENT: Auricles normal inspection, hearing grossly normal, nares patent, oropharynx clear without exudates. NECK: Normal ROM, supple, no lymphadenopathy, JVD, or masses LUNGS: No distress, speaks full sentences, clear to auscultation bilaterally HEART: Regular rate and rhythm, normal S1 and S2, no murmurs, rubs or gallops, peripheral pulses normal and equal bilaterally. ABDOMEN: Distractable suprapubic and epigastric abdominal pain. No guarding, no rebound. No masses EXTREMITIES: Normal inspection, Normal range of motion, no edema. No clubbing or cyanosis. NEUROLOGICAL: Cranial nerves II through XII grossly intact. Normal speech, normal gait, no focal sensorimotor deficits SKIN: Warm, Dry, normal turgor, no rashes or lesions noted. ED Treatment Course - LABORATORY CBC & Chemistry Diagram: 06/17/17 06:32 06/17/17 06:32 Medical Decision Making - Medical Decision Making 06/17/17 06:01 Patient is a 27M with history of chronic abdominal pain and anxiety here today complaining of abdominal pain, vomiting, diarrhea. Vital signs stable and normal. Believe patient most likely is simply reacting to bowel prep. Exam not focal, tenderness distractible. Will evaluate with cbc, cmp, lipase, ua. Will treat with fluids, zofran, tylenol. Do not believe CT scan is necessary at this time. 06/17/17 07:[address] Damian. *DC/Admit/Observation/Transfer Diagnosis at time of Disposition: Abdominal pain - Discharge Dispostion Condition at time of disposition: Stable - Referrals - Patient Instructions - Post Discharge Activity
[2017-06-17] MEDS ORDERED: ACETAMINOPHEN INJECTION 100 ML IVPB ONE (06:25)
[2017-06-17] MEDS ORDERED: ONDANSETRON 4 MG/2 ML VIAL ONE (06:25)
[2017-06-17 06:48] LABS: BASO % 0.2 % (0-2.0); EOS % 2.6 % (0-4.5); HEMATOCRIT 45.9 % (35.4-49); LYMPH % 9.9 % (8-40); MCH 28.8 pg (25.7-33.7); MCHC 34.8 g/dl (32.0-35.9); MEAN CELL VOLUME 82.8 fl (80-96); MEAN PLT VOLUME 8.7 fl (7.5-11.1); MONO % 6.9 % (3.8-10.2); NEUT % 80.4 % (42.8-82.8); PLATELET COUNT 222 K/MM3 (134-434); RBC 5.54 M/mm3 (4.00-5.60); RDW 13.4 % (11.9-15.9); WHITE BLOOD COUNT 10.7 K/mm3 (4.0-10.0)
--- NOTE | 2017-06-17 06:57 | PDOC ---
Attending Attestation - HPI HPI: 06/17/17 07:01 Patient is a 27 year old male with a significant past medical history of HTN, GERD, Anxiety, Depression, who presents to the ED with complaints of diffuse abdominal pain that began yesterday evening. Patient reports he is scheduled for a colonoscopy this morning at 11a, stating that he stated the bowel prep for the procedure. He reports experiencing associated symptoms of nausea, vomiting diarrhea, fever and chills. Denies chest pain, Sob. Denies contact with sick individual, out of state travelling. Denies any other symptoms. Allergies: Famotidine Social history: No smoking. No alcohol. No illicit drugs. Surgical history: None PMD: None <Niles Calvillo - Last Filed: 06/17/17 07:01> - Resident Resident Name: Sharif Montes - ED Attending Attestation I have performed the following: I have examined & evaluated the patient, The case was reviewed & discussed with the resident, I agree w/resident's findings & plan, Exceptions are as noted - Physicial Exam PE: 06/21/17 19:24 Physical Exam General Appearance: Yes: Appropriately Dressed. No: Apparent Distress, Intoxicated HEENT: positive: EOMI, MALI, Normal ENT Inspection, Normal Voice, TMs Normal, Pharynx Normal. negative: Pale Conjunctivae, Photophobia, Scleral Icterus (R), Scleral Icterus (L) Neck: positive: Trachea midline, Normal Thyroid, Supple. negative: Tender, Rigid, Carotid bruit, Stridor, Lymphadenopathy (R), Lymphadenopathy (L), Thyromegaly Respiratory/Chest: positive: Lungs Clear, Normal Breath Sounds. negative: Chest Tender, Respiratory Distress, Accessory Muscle Use, Labored Respiration, RES, Crackles, Rales, Rhonchi, Stridor, Wheezing, Dullness Cardiovascular: positive: Regular Rhythm, Regular Rate, S1, S2. negative: Edema , JVD, Murmur, Bradycardia, Tachycardia Vascular Pulses: Dorsalis-Pedis (R): 2+, Doralis-Pedis (L): 2+ Gastrointestinal/Abdominal: positive: Normal Bowel Sounds, Flat, Soft. negative : Tender, Organomegaly, Pulsatile Mass, Increased Bowel Sounds, Decreased BS, Distended, Guarding, Rebound, Hernia, Hepatomegaly, Spleenomegaly Lymphatic: negative: Adenopathy, Tenderness Musculoskeletal: positive: Normal Inspection. negative: CVA Tenderness, Decreased Range of Motion Extremity: positive: Normal Capillary Refill, Normal Inspection, Normal Range of Motion, Pelvis Stable. negative: Tender, Pedal Edema, Swelling, Erythema Integumentary: positive: Normal Color, Dry, Warm. negative: Cyanotic, Erythema , Jaundice, Rash Neurologic: positive: personal development coach II-XII NML intact, Fully Oriented, Alert, Normal Mood/ Affect, Motor Strength 5/5. negative: EOM Palsy, Facial Droop, Sensory Deficit - Medical Decision Making 06/21/17 19:25 Pt treated and released. <Scooby Callahan - Last Filed: 06/21/17 19:25>
[2017-06-17 07:31] LABS: ALBUMIN 4.4 g/dl (3.4-5.0); ALK PHOS 70 U/L (45-117); ANION GAP 8 (8-16); BILIRUBIN,TOTAL 0.5 mg/dL (0.2-1.0); BLOOD UREA NITROGEN 8 mg/dL (7-18); CALCIUM 9.5 mg/dL (8.5-10.1); CHLORIDE 103 mmol/L (98-107); CO2 28 mmol/L (21-32); GLUCOSE,RANDOM 101 mg/dL (74-106); LIPASE 124 U/L (73-393); POTASSIUM 3.7 mmol/L (3.5-5.1); SGOT/AST 15 U/L (15-37); SGPT/ALT 8 U/L (12-78); SODIUM 139 mmol/L (136-145); TOT PROT 8.2 g/dl (6.4-8.2)
[2017-06-17 07:38] VITALS: TEMP 98.5
[2017-06-17 09:19] LABS: URINE APPEARANCE CLEAR; URINE BILIRUBIN NEGATIVE (<2.0 mg/dL); URINE COLOR YELLOW; URINE GLUCOSE (UA) NEGATIVE (NEGATIVE); URINE KETONE 1+ (NEGATIVE); URINE LEUK ESTERASE NEGATIVE (NEGATIVE); URINE NITRITE NEGATIVE (NEGATIVE); URINE PROTEIN NEGATIVE (NEGATIVE); URINE UROBILINOGEN NEGATIVE mg/dL (0.2-1.0)
--- NOTE | 2017-06-17 09:36 | PDOC ---
History of Present Illness - General Chief Complaint: Pain, Acute Stated Complaint: ABD PAIN Time Seen by Provider: 06/17/17 05:35 History Source: Patient Exam Limitations: No Limitations - History of Present Illness Initial Comments: pt was signed out to me by 06/17/17 09:32 Patient is a 27M with history of chronic abdominal pain and anxiety here today complaining of abdominal pain, vomiting, diarrhea. Vital signs stable and normal. patient most likely is simply reacting to bowel prep. Exam not focal, tenderness. Will evaluate with cbc, cmp, lipase, ua. Was treated with fluids, zofran, tylenol. no need for CT scan pt is the at this time. Vital Signs Temp Pulse Resp BP Pulse Ox 98.5 F 71 20 133/82 98 06/17/17 07:30 06/17/17 05:33 06/17/17 05:33 06/17/17 05:33 06/17/17 05:33 CBC, BMP 06/17/17 06:32 06/17/17 06:32 Pt is hemodynamically stable and his symptoms has improved His lab is unremarkable Pt will be discharged from the Ed US is unremarkable He will go to his out pt appointment for colonoscopy 06/17/17 09:36 Past History - Past Medical History Allergies/Adverse Reactions: Allergies Allergy/AdvReac Type Severity Reaction Status Date / Time famotidine [From Pepcid] Allergy Rash Verified 06/17/17 05:33 Home Medications: Ambulatory Orders Pantoprazole Sodium [Protonix] 40 mg PO DAILY 05/31/17 Anemia: No Asthma: No Cancer: No Cardiac Disorders: Yes (PALPITATIONS) CVA: No COPD: No CHF: No Dementia: No Diabetes: No GI Disorders: Yes (GERD) Disorders: No HTN: Yes Hypercholesterolemia: No Liver Disease: No Psychiatric Problems: Yes (anxiety, depression) Seizures: No Thyroid Disease: No - Immunization History Immunization Up to Date: Yes - Suicide/Smoking/Psychosocial Hx Smoking Status: No Smoking History: Never smoked Have you smoked in the past 12 months: No Number of Cigarettes Smoked Daily: 0 Information on smoking cessation initiated: No Hx Alcohol Use: No Drug/Substance Use Hx: No Substance Use Type: None Hx Substance Use Treatment: No *Physical Exam - Vital Signs Last Vital Signs Temp Pulse Resp BP Pulse Ox 98.5 F 71 20 133/82 98 06/17/17 07:30 06/17/17 05:33 06/17/17 05:33 06/17/17 05:33 06/17/17 05:33 ED Treatment Course - LABORATORY CBC & Chemistry Diagram: 06/17/17 06:32 06/17/17 06:32 - ADDITIONAL ORDERS Additional order review: Laboratory Results 06/17/17 06/17/17 09:10 06:32 Sodium 139 Potassium 3.7 Chloride 103 Carbon Dioxide 28 Anion Gap 8 BUN 8 Creatinine 1.0 Creat Clearance w eGFR > 60 Random Glucose 101 Calcium 9.5 Total Bilirubin 0.5 AST 15 D ALT 8 L Alkaline Phosphatase 70 Total Protein 8.2 Albumin 4.4 Lipase 124 Urine Color Yellow Urine Appearance Clear Urine pH 5.0 Ur Specific [place] 1.030 Urine Protein Negative Urine Glucose (UA) Negative Urine Ketones 1+ H Urine Blood Negative Urine Nitrite Negative Urine Bilirubin Negative Urine Urobilinogen Negative Ur Leukocyte Esterase Negative 06/17/17 06:32 RBC 5.54 MCV 82.8 MCHC 34.8 RDW 13.4 MPV 8.7 Neutrophils % 80.4 Lymphocytes % 9.9 D Monocytes % 6.9 Eosinophils % 2.6 Basophils % 0.2 - Medications Given in the ED: ED Medications Discontinued Medications Generic Name Dose Route Start Last Admin Trade Name Freq PRN Reason Stop Dose Admin Acetaminophen 1,000 mg 06/17/17 05:45 06/17/17 06:26 Ofirmev Injection - IVPB 06/17/17 05:46 1,000 mg ONCE ONE Administration Sodium Chloride 1,000 mls @ 1,000 mls/hr 06/17/17 05:45 06/17/17 06:26 Normal Saline - IV 06/17/17 06:44 1,000 mls/hr ASDIR STA Administration Ondansetron HCl 4 mg 06/17/17 05:45 06/17/17 06:26 Zofran Injection IVPUSH 06/17/17 05:46 4 mg ONCE ONE Administration *DC/Admit/Observation/Transfer Diagnosis at time of Disposition: Abdominal pain - Discharge Dispostion Disposition: HOME Condition at time of disposition: Stable Admit: No - Referrals Referrals: Lawrence Chew MD [Primary Care Provider] - 1 week - Patient Instructions Printed Discharge Instructions: DI for Abdominal Pain-Adult Additional Instructions: you presented to the emergency room due to abdominal pain and diarrhea and nausea , The work up come back negative, your symptoms has been improved You will discharged from emergency room You will have colonoscopy to day at 11 am Please follow up wit your primary as out patient within one week If develop fever, chills or your symptoms worsen please return to emergency room as soon as possible - Post Discharge Activity
[2017-06-17 10:00] VITALS: BP 110/74; PULSE 98
== END 2017-06-17 10:01 | disposition home or self-care (01) ==
LOC: JER 05:32
PROC: 3E033NZ Introduction of Analgesics, Hypnotics, Sedatives into Peripheral Vein, Percutaneous Approach (ICD-10-PCS; principal; 2017-06-17)
PROC: 3E033GC Introduction of Other Therapeutic Substance into Peripheral Vein, Percutaneous Approach (ICD-10-PCS; 2017-06-17)
PROC: 3E0337Z Introduction of Electrolytic and Water Balance Substance into Peripheral Vein, Percutaneous Approach (ICD-10-PCS; 2017-06-17)
DX: R10.9 Unspecified abdominal pain (principal); F41.9 Anxiety disorder, unspecified
CPT/HCPCS: 36415; 80053; 81003; 83690; 85025; 96361; 96374; 96375; 99282-25; J0131; J7030

== ENCOUNTER 2017-06-17 10:14 | Day surgery (SDC) | payer OTHER ==
[2017-06-17 11:24] VITALS: BMI 25.4
[2017-06-17] MEDS ORDERED: PROPOFOL 20 ML ONE ×2 (11:42)
[2017-06-17 12:35] VITALS: TEMP 97.8
[2017-06-17 13:51] VITALS: BP 108/60; PULSE 62
--- NOTE | 2017-06-20 15:24 | PATH ---
Surgical Pathology Report Patient Name: BOUCHRA ZAPATA [facility]. Rec. #: [id number] /Age/Gender: 1990 (Age: 27) / M Account: [id number] Location: [facility]-ENDOSCOPY Taken: 06/17/2017 Received: 06/17/2017 Reported: 06/20/2017 Physicians: Douglas Davenport D.O. Specimen(s) Received A: BX ILEOCECAL VALVE B: BX RIGHT COLON C: BX TRANSVERSE COLON D: BX LEFT COLON E: BX SIGMOID F: BX RECTUM Clinical History Abdominal pain, diarrhea Postoperative diagnosis: Abdominal pain, diarrhea Final Diagnosis A. ILEOCECAL VALVE, BIOPSY: COLONIC MUCOSA WITH PROMINENT LYMPHOID AGGREGATE. B. COLON, RIGHT, BIOPSY: COLONIC MUCOSA WITH PROMINENT LYMPHOID AGGREGATE. C. TRANSVERSE COLON, BIOPSY: COLONIC MUCOSA WITH PROMINENT LYMPHOID AGGREGATE. D. COLON, LEFT, BIOPSY: COLONIC MUCOSA WITH PROMINENT LYMPHOID AGGREGATE. E. SIGMOID COLON, BIOPSY: COLONIC MUCOSA WITH PROMINENT LYMPHOID AGGREGATE. F. RECTUM, BIOPSY: COLONIC MUCOSA WITH PROMINENT LYMPHOID AGGREGATE. Comment: Features of microscopic colitis are not identified. Suggest clinical correlation. Electronically Signed Leonor Hollingsworth M.D. Gross Description A. Received in formalin, labeled "biopsy ileocecal valve" are 2 munoz, irregular portions of soft tissue averaging 0.2 cm. in greatest dimension. The specimens are submitted in toto in one cassette. B. Received in formalin, labeled "biopsy right colon" are 4 munoz, irregular portions of soft tissue ranging from 0.1-0.2 cm. in greatest dimension. The specimens are submitted in toto in one cassette. C. Received in formalin, labeled "biopsy transverse colon" are 3 munoz, irregular portions of soft tissue ranging from 0.1-0.6 cm. in greatest dimension. The specimens are submitted in toto in one cassette. D. Received in formalin, labeled "biopsy left colon" are 2 munoz, irregular portions of soft tissue averaging 0.2 cm. in greatest dimension. The specimens are submitted in toto in one cassette. E. Received in formalin, labeled "biopsy sigmoid" are 3 munoz, irregular portions of soft tissue ranging from 0.2-1.1 cm. in greatest dimension. The specimens are submitted in toto in one cassette. F. Received in formalin, labeled "biopsy rectum" is a munoz, irregular portion of soft tissue measuring 0.3 cm. in greatest dimension. The specimen is submitted in toto in one cassette. 06/17/201706/17/2017
== END 2017-06-17 13:51 | disposition home or self-care (01) ==
LOC: JASU-ENDO 10:14
PROVIDERS: ATTEND Internal Medicine Gastroenterology
PROC: 0DBE8ZX Excision of Large Intestine, Via Natural or Artificial Opening Endoscopic, Diagnostic (ICD-10-PCS; principal; 2017-06-17 11:00)
DX: R10.9 Unspecified abdominal pain (principal); R19.7 Diarrhea, unspecified; K64.8 Other hemorrhoids; K64.4 Residual hemorrhoidal skin tags
CPT/HCPCS: 88305-TC

== ENCOUNTER 2017-07-06 21:20 | Emergency (ER) | payer OTHER ==
--- NOTE | 2017-07-06 21:55 | PDOC ---
History of Present Illness - General Stated Complaint: MUSCLE PAIN CHEST/BACK Time Seen by Provider: 07/06/17 21:54 - History of Present Illness Initial Comments: 07/06/17 22:18 The patient is a 27 year old male with a history of GERD who presents for evaluation of chest pain. The patient reports multiple medical complaints for which he is being worked up by his primary care provider Dr. Shrestha. He presents today for evaluation of intermittent chest pain with intermittent radiation to his back with associated occasional palpitations that has been occurring over the past few weeks. He states that he has negative endoscopy and colonoscopy in the past as well. He otherwise denies fevers, chills, SOB, nausea, vomiting, abdominal pain, or changes with urination or bowel movements. Past History - Past Medical History Allergies/Adverse Reactions: Allergies Allergy/AdvReac Type Severity Reaction Status Date / Time famotidine [From Pepcid] Allergy Rash Verified 06/17/17 05:33 Home Medications: Ambulatory Orders Pantoprazole Sodium [Protonix] 40 mg PO DAILY 05/31/17 Cholecalciferol (Vitamin D3) [Vitamin D -] 5,000 units PO DAILY 07/06/17 Anemia: No Asthma: No Cancer: No Cardiac Disorders: Yes (PALPITATIONS) CVA: No COPD: No CHF: No Dementia: No Diabetes: No GI Disorders: Yes (GERD) Disorders: No HTN: Yes Hypercholesterolemia: No Liver Disease: No Psychiatric Problems: Yes (anxiety, depression) Seizures: No Thyroid Disease: No - Immunization History Immunization Up to Date: Yes - Suicide/Smoking/Psychosocial Hx Smoking Status: No Smoking History: Never smoked Have you smoked in the past 12 months: No Number of Cigarettes Smoked Daily: 0 Hx Alcohol Use: No Drug/Substance Use Hx: No Substance Use Type: None Hx Substance Use Treatment: No Review of Systems - Review of Systems Comments:: 07/06/17 22:22 Constitutional: No fevers, chills, fatigue, malaise HEENT: No Rhinorrhea, nasal congestion, visual changes Cardiovascular: Chest pain, Palpitations. No syncope, lightheadedness Respiratory: No Cough, SOB, Hemoptysis, Gastrointestinal: No Abdominal pain, Nausea, Vomiting, Constipation, Diarrhea, Melena Genitourinary: No Dysuria, Frequency, Urgency, Hesitancy, Hematuria, Flank pain Musculoskeletal: No Myalgia, arthralgia Skin: No rashes, itching, bruising, pallor Neurologic: No Headache, Dizziness, Numbness, Weakness, or Tingling Psychiatric: No Hallucinations. No SI or HI *Physical Exam - Physical Exam Comments: 07/06/17 22:22 General Appearance: Nourished. No Apparent Distress HEENT: EOMI, MALI. No Pharyngeal Erythema, Tonsillar Exudate, Tonsillar Erythema Neck: No Cervical Lymphadenopathy Respiratory/Chest: Lungs Clear, Normal Breath Sounds. Reproducible tenderness to palpation along the left sternal boarder. No Crackles, Rales, Rhonchi, Wheezing Cardiovascular: Regular Rhythm, Regular Rate. No Murmur, Gallops, Rubs Gastrointestinal/Abdominal: Normal Bowel Sounds, Soft. No Guarding, Rebound, Tenderness Musculoskeletal: No CVA Tenderness Extremity: Normal Capillary Refill Integumentary: Normal Color, Dry, Warm Neurologic: Fully Oriented, Alert, Normal Mood/Affect, Normal Response, Heart Score/ECG Review #1 ECG reviewed & interpreted by me at: 23:31 General ECG Interpretation: Sinus Rhythm, Normal Rate, Normal Intervals, No acute ischemic changes Compared to previous ECG there are: Previous ECG unavail ED Treatment Course - LABORATORY CBC & Chemistry Diagram: 07/06/17 22:45 07/06/17 22:45 Medical Decision Making - Medical Decision Making 07/06/17 22:23 The patient is a 27 year old male with a history of GERD who presents for evaluation of chest pain. Differential includes but is not limited to: ACS, Musculoskeletal, Anxiety, Infectious, Metabolic Derangement. Given the patient' s history we will obtain a cbc, cmp, troponin, ua, chest plain film, and EKG to evaluate for possible etiologies. The patient appears anxious on exam and there could be a component of anxiety to the patient's symptoms. However we will treat with iv fluids in the meantime and continue to monitor and reassess. 07/07/17 00:20 CBC, cmp, troponin, ua are unremarkable. Chest plain film is unremarkable as preliminarily read by ER physician. The patient reports improvement in his pain after maalox and toradol. We are comfortable discharging the patient home at this time with cardiology and neurology follow up. We discussed the results , plan and return precautions with the patient who voiced understanding and is agreeable with the plan. *DC/Admit/Observation/Transfer Diagnosis at time of Disposition: Chest pain Qualifiers: Chest pain type: unspecified Qualified Code(s): R07.9 - Chest pain, unspecified - Discharge Dispostion Disposition: HOME Condition at time of disposition: Good Admit: No - Referrals Referrals: Reny Shirley MD [Primary Care Provider] - Daniel Betancur MD [Staff Physician] - Valentin Arreola MD [Staff Physician] - - Patient Instructions Printed Discharge Instructions: DI for Atypical Chest Pain Additional Instructions: Please return to the ER if you experience concerning or worsening symptoms including worsening pain, difficulty breathing or inability to tolerate anything by mouth. Your lab results were normal here in the ER. Your Chest x-ray and EKG were also normal. Please call to schedule a follow up appointment with your primary care provider within 2-3 days to discuss your ER visit and further management of your symptoms. Please also call within 2-3 days our metal coater Dr. Betancur and our neurologist Dr. Arreola to schedule follow up appointments to discuss further management of your symptoms. - Post Discharge Activity
--- NOTE | 2017-07-06 21:55 | PDOC ---
Attending Attestation - ED Attending Attestation I have performed the following: I have examined & evaluated the patient, The case was reviewed & discussed with the resident, I agree w/resident's findings & plan, Exceptions are as noted - Medical Decision Making 07/07/17 00:45 Pt seen/examined c/o intermittent sharp substernal CP, has been doing more housework/caring for kids than usual lately pain is very reproducible on exam signs/sxs most c/w msk CP HEART score 1 (fam hx of CAD only) if pain improves, to dc home with PMD f/u and instructions for tylenol (has GERD , should avoid NSAIDS) Reports that he can f/u tomorrow with PMD, advised to return if worsening
[2017-07-06] MEDS ORDERED: SODIUM CHLORIDE 1,000 ML IV STA (22:07)
[2017-07-06 22:35] VITALS: BP 126/82; PULSE 63; TEMP 97.7; BMI 24.0
[2017-07-06 22:56] LABS: BASO % 0.4 % (0-2.0); EOS % 2.5 % (0-4.5); HEMATOCRIT 40.3 % (35.4-49); HEMOGLOBIN 14.1 GM/dL (11.7-16.9); LYMPH % 13.5 % (8-40); MCH 28.8 pg (25.7-33.7); MEAN CELL VOLUME 82.1 fl (80-96); MEAN PLT VOLUME 8.4 fl (7.5-11.1); MONO % 7.1 % (3.8-10.2); NEUT % 76.5 % (42.8-82.8); PLATELET COUNT 192 K/MM3 (134-434); RBC 4.91 M/mm3 (4.00-5.60); RDW 13.1 % (11.9-15.9); WHITE BLOOD COUNT 10.2 K/mm3 (4.0-10.0)
[2017-07-06 22:57] LABS: URINE APPEARANCE CLEAR; URINE BILIRUBIN NEGATIVE (<2.0 mg/dL); URINE BLOOD NEGATIVE (NEGATIVE); URINE COLOR STRAW; URINE GLUCOSE (UA) NEGATIVE (NEGATIVE); URINE KETONE TRACE (NEGATIVE); URINE LEUK ESTERASE NEGATIVE (NEGATIVE); URINE NITRITE NEGATIVE (NEGATIVE); URINE PROTEIN NEGATIVE (NEGATIVE); URINE UROBILINOGEN NEGATIVE mg/dL (0.2-1.0)
[2017-07-06 23:19] LABS: ALBUMIN 4.3 g/dl (3.4-5.0); ANION GAP 10 (8-16); BILIRUBIN,TOTAL 0.4 mg/dL (0.2-1.0); BLOOD UREA NITROGEN 16 mg/dL (7-18); CALCIUM 9.3 mg/dL (8.5-10.1); CHLORIDE 104 mmol/L (98-107); CO2 27 mmol/L (21-32); GLUCOSE,RANDOM 92 mg/dL (74-106); POTASSIUM 3.5 mmol/L (3.5-5.1); SGOT/AST 13 U/L (15-37); SGPT/ALT < 6 U/L (12-78); SODIUM 141 mmol/L (136-145); TOT PROT 7.4 g/dl (6.4-8.2)
[2017-07-06 23:22] LABS: ALK PHOS 62 U/L (45-117)
[2017-07-06] MEDS ORDERED: KETOROLAC TROMETHAMINE 30 MG/1 ML VIAL IVPUSH ONE (23:26)
[2017-07-06] MEDS ORDERED: KETOROLAC TROMETHAMINE 30 MG/1 ML VIAL ONE (23:27)
[2017-07-07] MEDS ORDERED: MAG HYDROX/AL HYDROX/SIMETH 30 ML UNIT-DOSE CUP PO ONE (00:29)
[2017-07-07] MEDS ORDERED: MAG HYDROX/AL HYDROX/SIMETH 30 ML UNIT-DOSE CUP ONE (00:31)
--- NOTE | 2017-07-07 12:57 | EKG ---
Test Reason : Blood Pressure : / mmHG Vent. Rate : 097 BPM Atrial Rate : 097 BPM P-R Int : 132 ms QRS Dur : 086 ms QT Int : 356 ms P-R-T Axes : 058 048 041 degrees QTc Int : 452 ms NORMAL SINUS RHYTHM NONSPECIFIC T WAVE ABNORMALITY ABNORMAL ECG WHEN COMPARED WITH ECG OF 08-MAY-2017 19:01, NONSPECIFIC T WAVE ABNORMALITY NOW EVIDENT IN ANTERIOR LEADS Confirmed by ASHA PRETTY, SANGITA ([id number]) on 07/07/2017 12:57:14 PM Referred By: Confirmed By:SANGITA BARRY MD
== END 2017-07-07 02:01 | disposition home or self-care (01) ==
LOC: JER 21:20
PROC: 3E0337Z Introduction of Electrolytic and Water Balance Substance into Peripheral Vein, Percutaneous Approach (ICD-10-PCS; principal; 2017-07-06)
PROC: 3E0333Z Introduction of Anti-inflammatory into Peripheral Vein, Percutaneous Approach (ICD-10-PCS; 2017-07-06)
DX: R07.9 Chest pain, unspecified (principal); I10 Essential (primary) hypertension; K21.9 Gastro-esophageal reflux disease without esophagitis; F41.9 Anxiety disorder, unspecified; F32.9 Major depressive disorder, single episode, unspecified
CPT/HCPCS: 36415; 71046-TC-FY; 80053; 81003; 82550; 84484; 85025; 87389; 93005; 93010; 99282-25; J7030

== ENCOUNTER 2017-08-15 00:01 | Emergency (ER) | payer OTHER ==
[2017-08-15] MEDS ORDERED: ONDANSETRON *ODT* 4 MG TABLET SL ONE (00:54)
--- NOTE | 2017-08-15 00:54 | PDOC ---
History of Present Illness - General History Source: Patient Exam Limitations: No Limitations - History of Present Illness Initial Comments: 08/15/17 00:59 The patient is a 27 year old male with a significant past medical history of Acid Reflux, Anxiety and Depression who presents to the ED with complaints of generalized malaise since earlier today. The patient was outside at a baseball game earlier today and only consumed one bottle of water and one cup of apple juice all day. Patient states he did not take his anxiety medication earlier today. He reports dry mouth, shakiness, and nausea. He states his symptoms feel similar to a panic attack. Patient also reports multiple episodes of watery stool several days ago. Patient recently had a negative colonoscopy on 06/07/17. Denies fever or chills. Denies abdominal pain. Denies change in urinary output. Denies headache. Denies cough or shortness of breath. Denies any other symptoms. <Jad Gross - Last Filed: 08/15/17 00:59> <Edilia Olguin - Last Filed: 08/16/17 00:26> - General Chief Complaint: Chest Pain Stated Complaint: CHEST PAIN Time Seen by Provider: 08/15/17 00:46 Past History <Jad Gross - Last Filed: 08/15/17 00:59> - Past Medical History Anemia: No Asthma: No Cancer: No Cardiac Disorders: Yes (PALPITATIONS) CVA: No COPD: No CHF: No DVT: No Dementia: No Diabetes: No GI Disorders: Yes (GERD) Disorders: No HTN: Yes Hypercholesterolemia: No Liver Disease: No Psychiatric Problems: Yes (anxiety, depression) Seizures: No Thyroid Disease: No - Immunization History Immunization Up to Date: Yes - Suicide/Smoking/Psychosocial Hx Smoking Status: No Smoking History: Never smoked Have you smoked in the past 12 months: No Number of Cigarettes Smoked Daily: 0 Information on smoking cessation initiated: No Hx Alcohol Use: No Drug/Substance Use Hx: No Substance Use Type: None Hx Substance Use Treatment: No <Edilia Olguin - Last Filed: 08/16/17 00:26> - Past Medical History Allergies/Adverse Reactions: Allergies Allergy/AdvReac Type Severity Reaction Status Date / Time famotidine [From Pepcid] Allergy Rash Verified 08/15/17 00:53 Home Medications: Ambulatory Orders Pantoprazole Sodium [Protonix] 40 mg PO DAILY 05/31/17 Cholecalciferol (Vitamin D3) [Vitamin D -] 5,000 units PO DAILY 07/06/17 Review of Systems - Review of Systems Able to Perform ROS?: Yes Comments:: 08/15/17 01:00 CONSTITUTIONAL: + shakiness Absent: fever, chills, diaphoresis, generalized weakness, malaise, loss of appetite HEENT: + dry mouth Absent: rhinorrhea, nasal congestion, throat pain, throat swelling, difficulty swallowing, mouth swelling, ear pain, eye pain, visual Changes CARDIOVASCULAR: Absent: chest pain, syncope, palpitations, irregular heart rate, lightheadedness , peripheral edema RESPIRATORY: Absent: cough, shortness of breath, dyspnea with exertion, orthopnea, wheezing, stridor, hemoptysis GASTROINTESTINAL: + nausea, diarrhea Absent: abdominal pain, abdominal distension, vomiting, constipation, melena, hematochezia GENITOURINARY: Absent: dysuria, frequency, urgency, hesitancy, hematuria, flank pain, genital pain MUSCULOSKELETAL: Absent: myalgia, arthralgia, joint swelling SKIN: Absent: rash, itching, pallor HEMATOLOGIC/IMMUNOLOGIC: Absent: easy bleeding, easy bruising, lymphadenopathy, frequent infections ENDOCRINE: Absent: unexplained weight gain, unexplained weight loss, heat intolerance, cold intolerance NEUROLOGIC: Absent: headache, focal weakness or paresthesias, dizziness, unsteady gait, seizure, mental status changes, bladder or bowel incontinence PSYCHIATRIC: Absent: anxiety, depression, suicidal or homicidal ideation, hallucinations. All Other Systems: Reviewed and Negative <Jad Gross - Last Filed: 08/15/17 00:59> *Physical Exam - Vital Signs Last Vital Signs Temp Pulse Resp BP Pulse Ox 98.0 F 80 17 122/87 98 08/15/17 00:47 08/15/17 00:50 08/15/17 00:50 08/15/17 00:50 08/15/17 00:50 - Physical Exam Comments: 08/15/17 01:00 GENERAL: Well developed, well nourished. Awake and alert. No acute distress. HEENT: Normocephalic, atraumatic. PERRLA, EOMI. No conjunctival pallor. Sclera are non- icteric. Moist mucous membranes. Oropharynx is clear. NECK: Supple. Full ROM. No JVD. Carotid pulses 2+ and symmetric, without bruits. No thyromegaly. No lymphadenopathy. CARDIOVASCULAR: Regular rate and rhythm. No murmurs, rubs, or gallops. Distal pulses are 2+ and symmetric. PULMONARY: No evidence of respiratory distress. Lungs clear to auscultation bilaterally. No wheezing, rales or rhonchi. ABDOMINAL: Soft. Non-tender. Non-distended. No rebound or guarding. No organomegaly. Normoactive bowel sounds. MUSCULOSKELETAL Normal range of motion at all joints. No bony deformities or tenderness. No CVA tenderness. EXTREMITIES: No cyanosis. No clubbing. No edema. No calf tenderness. SKIN: Warm and dry. Normal capillary refill. No rashes. No jaundice. NEUROLOGICAL: Alert, awake, appropriate. Cranial nerves 2-12 intact. No deficits to light touch and temperature in face, upper extremities and lower extremities. No motor deficits in the in face, upper extremities and lower extremities. Normoreflexic in the upper and lower extremities. Normal speech. Toes are down- going bilaterally. Gait is normal without ataxia. PSYCHIATRIC: Cooperative. Good eye contact. Appropriate mood and affect. <Jad Gross - Last Filed: 08/15/17 00:59> - Vital Signs Last Vital Signs Temp Pulse Resp BP Pulse Ox 98.0 F 108 H 21 133/87 100 08/15/17 00:47 08/15/17 00:47 08/15/17 00:47 08/15/17 00:47 08/15/17 00:47 <Edilia Olugin - Last Filed: 08/16/17 00:26> ED Treatment Course - LABORATORY CBC & Chemistry Diagram: 08/15/17 00:11 <Edilia Olguin - Last Filed: 08/16/17 00:26> Medical Decision Making - Medical Decision Making 08/15/17 01:25 27-year-old male states he was outdoors all day with little fluid intake and felt drained. Patient states that he had palpitations and felt that he was having a panic attack. EKG is normal sinus rhythm at 89 bpm. There is no signs of any ischemia or arrhythmia. Patient is normotensive, has a regular rate and rhythm. He is 99% pulse ox on room air Regular rate and rhythm, no rubs, no murmurs, no gallops. Lungs are clear to auscultation 08/15/17 01:33 -chemistries unremarkable and pt was discharged home 08/16/17 00:26 <Edilia Olguin - Last Filed: 08/16/17 00:26> *DC/Admit/Observation/Transfer - Attestations Scribe Attestion: 08/15/17 01:00 Documentation prepared by Jad Gross, acting as medical supply technician for Edilia Olguin MD <Jad Gross - Last Filed: 08/15/17 00:59> <Edilia Olguin - Last Filed: 08/16/17 00:26> Diagnosis at time of Disposition: Palpitations - Discharge Dispostion Disposition: HOME Condition at time of disposition: Stable - Referrals Referrals: ON STAFF,NOT [Primary Care Provider] - - Patient Instructions Printed Discharge Instructions: DI for Palpitations Additional Instructions: Please follow up with your doctor - Post Discharge Activity
[2017-08-15] MEDS ORDERED: ONDANSETRON 8 MG TABLET (FP) PO ONE (00:57)
[2017-08-15 01:11] VITALS: BP 122/87; PULSE 80; TEMP 98; BMI 20.1
[2017-08-15 02:03] LABS: CHLORIDE 107 mmol/L (98-107); POTASSIUM 3.8 mmol/L (3.5-5.1); SODIUM 143 mmol/L (136-145)
[2017-08-15 02:10] LABS: ALBUMIN 4.2 g/dl (3.4-5.0); ALK PHOS 74 U/L (45-117); ANION GAP 6 (8-16); BILIRUBIN,TOTAL 0.2 mg/dL (0.2-1.0); BLOOD UREA NITROGEN 16 mg/dL (7-18); CALCIUM 8.7 mg/dL (8.5-10.1); CO2 30 mmol/L (21-32); GLUCOSE,RANDOM 97 mg/dL (74-106); SGOT/AST 15 U/L (15-37); SGPT/ALT 9 U/L (12-78); TOT PROT 7.6 g/dl (6.4-8.2)
--- NOTE | 2017-08-17 11:51 | EKG ---
Test Reason : Blood Pressure : / mmHG Vent. Rate : 089 BPM Atrial Rate : 089 BPM P-R Int : 132 ms QRS Dur : 088 ms QT Int : 360 ms P-R-T Axes : 054 034 028 degrees QTc Int : 438 ms NORMAL SINUS RHYTHM NORMAL ECG WHEN COMPARED WITH ECG OF 06-JUL-2017 23:30, NO SIGNIFICANT CHANGE WAS FOUND Confirmed by AALIYAH HERNANDEZ MD ([id number]) on 08/17/2017 11:51:43 AM Referred By: Confirmed By:AALIYAH HERNANDEZ MD
== END 2017-08-15 02:30 | disposition home or self-care (01) ==
LOC: JER 00:01 → SUPCPDRO 00:01 → JER 02:30
DX: R00.2 Palpitations (principal); F41.8 Other specified anxiety disorders; K21.9 Gastro-esophageal reflux disease without esophagitis; I10 Essential (primary) hypertension
CPT/HCPCS: 36415; 80053; 93005; 93010; 99281-25; Q0162

== ENCOUNTER 2017-08-23 05:16 | Emergency (ER) | payer OTHER ==
[2017-08-23 05:19] VITALS: TEMP 98.4; BMI 20.9
[2017-08-23] MEDS ORDERED: SODIUM CHLORIDE 1,000 ML IV STA (05:29)
--- NOTE | 2017-08-23 05:29 | PDOC ---
History of Present Illness - General Chief Complaint: Chest Pain Stated Complaint: CHEST PAIN Time Seen by Provider: 08/23/17 05:29 - History of Present Illness Initial Comments: 08/23/17 06:12 Mr. Krueger is a 27 yo male w/ pmh of Anxiety, Depression and acid reflux BIBA for chest pain upon awakening from sleep this morning. He reports the pain lasted for a short time before going away while en route to the ER. He has had panic attacks in the past but reports they have never awoken him from sleep before. Mr. Krueger also reports that he has had exacerbation of his reflux symptoms for the past 2 days. The patient denies shortness of breath, headache and dizziness. Denies fever, chills, nausea, vomit, diarrhea and constipation. Denies dysuria, frequency, urgency and hematuria. Allergies: Famotidine Past History - Past Medical History Allergies/Adverse Reactions: Allergies Allergy/AdvReac Type Severity Reaction Status Date / Time famotidine [From PepReebeed] Allergy Verified 08/23/17 05:45 Home Medications: Ambulatory Orders Mirtazapine [Remeron Soltab -] 15 mg PO DAILY 08/23/17 Omeprazole 40 mg PO DAILY 08/23/17 Anemia: No Asthma: No Cancer: No Cardiac Disorders: Yes (PALPITATIONS) CVA: No COPD: No CHF: No DVT: No Dementia: No Diabetes: No GI Disorders: Yes (GERD) Disorders: No HTN: Yes Hypercholesterolemia: No Liver Disease: No Psychiatric Problems: Yes (Anxiety, Depression) Seizures: No Thyroid Disease: No - Immunization History Immunization Up to Date: Yes - Suicide/Smoking/Psychosocial Hx Smoking Status: No Smoking History: Never smoked Have you smoked in the past 12 months: No Number of Cigarettes Smoked Daily: 0 Hx Alcohol Use: No Drug/Substance Use Hx: No Substance Use Type: None Hx Substance Use Treatment: No Review of Systems - Review of Systems Comments:: 08/23/17 06:17 GENERAL/CONSTITUTIONAL: No fever or chills. No weakness. HEAD, EYES, EARS, NOSE AND THROAT: No change in vision. No ear pain or discharge. No sore throat. CARDIOVASCULAR: +Single episode of chest pain that self resolved earlier today. No shortness of breath RESPIRATORY: No cough, wheezing, or hemoptysis. GASTROINTESTINAL: +Reflux exacerbation for the last 2 days. No nausea, vomiting , diarrhea or constipation. GENITOURINARY: No dysuria, frequency, or change in urination. MUSCULOSKELETAL: No joint or muscle swelling or pain. No neck or back pain. SKIN: No rash NEUROLOGIC: No headache, vertigo, loss of consciousness, or change in strength/ sensation. ENDOCRINE: No increased thirst. No abnormal weight change HEMATOLOGIC/LYMPHATIC: No anemia, easy bleeding, or history of blood clots. ALLERGIC/IMMUNOLOGIC: No hives or skin allergy. *Physical Exam - Vital Signs Last Vital Signs Temp Pulse Resp BP Pulse Ox 98.4 F 100 H 18 133/84 99 08/23/17 05:17 08/23/17 05:21 08/23/17 05:17 08/23/17 05:17 08/23/17 05:21 - Physical Exam Comments: 08/23/17 06:18 GENERAL: Awake, alert, and fully oriented, in no acute distress HEAD: No signs of trauma, normocephalic, atraumatic EYES: PERRLA, EOMI, sclera anicteric, conjunctiva clear ENT: Auricles normal inspection, hearing grossly normal, nares patent, oropharynx clear without exudates. Moist mucosa NECK: Normal ROM, supple, no lymphadenopathy, JVD, or masses LUNGS: No distress, speaks full sentences, clear to auscultation bilaterally HEART: Regular rate and rhythm, normal S1 and S2, no murmurs, rubs or gallops, peripheral pulses normal and equal bilaterally. ABDOMEN: Soft, nontender, normoactive bowel sounds. No guarding, no rebound. No masses EXTREMITIES: Normal inspection, Normal range of motion, no edema. No clubbing or cyanosis. NEUROLOGICAL: Cranial nerves II through XII grossly intact. Normal speech, normal gait, no focal sensorimotor deficits SKIN: Warm, Dry, normal turgor, no rashes or lesions noted. ED Treatment Course - LABORATORY CBC & Chemistry Diagram: 08/23/17 05:15 08/23/17 05:15 Medical Decision Making - Medical Decision Making 08/23/17 06:19 Mr. Krueger is a 27 yo male w/ pmh as described who presents for evaluation of transient chest pain now resolved. Cardiac labs sent for evaluation - GI cocktail given for symptomatic relief of reflux. 08/23/17 06:24 Labs unconcerning as below. EKG normal. No concern for acute process at this time. Discharging patient to home with instructions to follow-up with primary care physician for further evaluation. Laboratory Results - last 24 hr 08/23/17 08/23/17 05:15 05:15 WBC 6.7 D RBC 5.06 Hgb 14.0 Hct 41.9 MCV 82.8 MCH 27.6 MCHC 33.3 RDW 13.2 Plt Count 200 MPV 8.2 Absolute Neuts (auto) 3.6 Neutrophils % 53.6 D Lymphocytes % 32.4 D Monocytes % 8.4 Eosinophils % 4.8 H D Basophils % 0.8 Nucleated RBC % 0 Sodium 140 Potassium 3.5 Chloride 103 Carbon Dioxide 30 Anion Gap 7 L BUN 14 Creatinine 1.0 Creat Clearance w eGFR > 60 Random Glucose 89 Calcium 8.5 Total Bilirubin 0.3 D AST 13 L ALT 9 L Alkaline Phosphatase 64 Creatine Kinase 56 Troponin I < 0.02 Total Protein 7.3 Albumin 3.9 *DC/Admit/Observation/Transfer Diagnosis at time of Disposition: Reflux gastritis Chest pain Qualifiers: Chest pain type: unspecified Qualified Code(s): R07.9 - Chest pain, unspecified - Discharge Dispostion Disposition: HOME - Referrals Referrals: Lawrence Chew MD [Primary Care Provider] - - Patient Instructions Printed Discharge Instructions: DI for Atypical Chest Pain Additional Instructions: Please follow-up with primary care provider for further evaluation as discussed. Return to ER if any return of chest pain, fever, chills, or other concerning symptoms. - Post Discharge Activity
[2017-08-23] MEDS ORDERED: MAG HYDROX/AL HYDROX/SIMETH 30 ML UNIT-DOSE CUP PO ONE (05:30)
[2017-08-23] MEDS ORDERED: FAMOTIDINE 20 MG/50 ML IVPB 20 MG/50 ML MG IVPB ONE ×2 (05:30→05:34)
[2017-08-23] MEDS ORDERED: LIDOCAINE VISCOUS 2% ORAL/TOP 20 ML UNIT-DOSE CUP MM ONE (05:30)
--- NOTE | 2017-08-23 05:30 | PDOC ---
Attending Attestation - Resident Resident Name: Hung Nichols - ED Attending Attestation I have performed the following: I have examined & evaluated the patient, The case was reviewed & discussed with the resident, I agree w/resident's findings & plan, Exceptions are as noted <Scooby Callahan - Last Filed: 08/23/17 05:29> - HPI HPI: 08/23/17 06:31 The patient is a 27 year old male with a past medical history of GERD and anxiety who presents to the emergency department today, [facility], for evaluation of chest pain. The patient reports that his chest pain is 10/10 in severity. He reports the pain lasted for a short time before going away while en route to the ER. He has had panic attacks in the past but reports they have never woken him from sleep before. - Physicial Exam PE: 08/23/17 06:31 GENERAL: Well-appearing, well-nourished. No apparent distress. HEENT: Normocephalic, atraumatic. PERRL, EOM intact. CARDIOVASCULAR: Normal S1, S2. Regular rate and rhythm. PULMONARY: Clear to auscultation bilaterally. ABDOMEN: Soft, non-distended, non-tender. EXTREMITIES: Normal ROM in all four extremities. No gross deformities. SKIN: Warm, dry. No rash NEUROLOGICAL: No focal neurological deficits. - Medical Decision Making 08/23/17 06:31 Documentation prepared by Henry Munoz, acting as medical science liaison for Scooby Callahan DO. <Henry Munoz - Last Filed: 08/23/17 06:31>
[2017-08-23] MEDS ORDERED: MAG HYDROX/AL HYDROX/SIMETH 30 ML UNIT-DOSE CUP ONE (05:34)
[2017-08-23] MEDS ORDERED: LIDOCAINE VISCOUS 2% ORAL/TOP 20 ML UNIT-DOSE CUP ONE (05:35)
[2017-08-23 05:47] LABS: BASO % 0.8 % (0-2.0); EOS % 4.8 % (0-4.5); HEMATOCRIT 41.9 % (35.4-49); LYMPH % 32.4 % (8-40); MCH 27.6 pg (25.7-33.7); MCHC 33.3 g/dl (32.0-35.9); MEAN CELL VOLUME 82.8 fl (80-96); MEAN PLT VOLUME 8.2 fl (7.5-11.1); MONO % 8.4 % (3.8-10.2); NEUT % 53.6 % (42.8-82.8); PLATELET COUNT 200 K/MM3 (134-434); RBC 5.06 M/mm3 (4.00-5.60); RDW 13.2 % (11.9-15.9); WHITE BLOOD COUNT 6.7 K/mm3 (4.0-10.0)
[2017-08-23 06:19] LABS: ALBUMIN 3.9 g/dl (3.4-5.0); ANION GAP 7 (8-16); BILIRUBIN,TOTAL 0.3 mg/dL (0.2-1.0); BLOOD UREA NITROGEN 14 mg/dL (7-18); CALCIUM 8.5 mg/dL (8.5-10.1); CHLORIDE 103 mmol/L (98-107); CO2 30 mmol/L (21-32); GLUCOSE,RANDOM 89 mg/dL (74-106); POTASSIUM 3.5 mmol/L (3.5-5.1); SGOT/AST 13 U/L (15-37); SGPT/ALT 9 U/L (12-78); SODIUM 140 mmol/L (136-145); TOT PROT 7.3 g/dl (6.4-8.2)
[2017-08-23 06:22] LABS: ALK PHOS 64 U/L (45-117)
[2017-08-23 06:52] VITALS: BP 125/82; PULSE 82
--- NOTE | 2017-08-23 12:12 | EKG ---
Test Reason : Blood Pressure : / mmHG Vent. Rate : 075 BPM Atrial Rate : 075 BPM P-R Int : 114 ms QRS Dur : 086 ms QT Int : 394 ms P-R-T Axes : 032 048 038 degrees QTc Int : 439 ms NORMAL SINUS RHYTHM NORMAL ECG NO PREVIOUS ECGS AVAILABLE Confirmed by MD GABRIEL, JORDY ([id number]) on 08/23/2017 12:11:50 PM Referred By: Confirmed By:JORDY RIOS MD
== END 2017-08-23 06:53 | disposition home or self-care (01) ==
LOC: JER 05:16
PROC: 3E0337Z Introduction of Electrolytic and Water Balance Substance into Peripheral Vein, Percutaneous Approach (ICD-10-PCS; principal; 2017-08-23)
DX: K29.60 Other gastritis without bleeding (principal); R07.9 Chest pain, unspecified; F41.8 Other specified anxiety disorders; R00.2 Palpitations; I10 Essential (primary) hypertension
CPT/HCPCS: 36415; 80053; 82550; 84484; 85025; 93005; 93010; 96360; 99284-25; J7030

== ENCOUNTER 2017-11-29 20:39 | Emergency (ER) | payer OTHER ==
--- NOTE | 2017-11-29 20:48 | PDOC ---
Rapid Medical Evaluation Chief Complaint: Psychiatric Time Seen by Provider: 11/29/17 20:44 Medical Evaluation: Allergies Allergy/AdvReac Type Severity Reaction Status Date / Time famotidine [From Pepcid] Allergy Verified 10/07/17 20:53 11/29/17 20:45 I have performed a brief in person evaluation of this patient. The patient presents with a CC of: Anxiety HPI: Pt is a 27 YO male who has a hx of anxiety and states that he is hyperventilating and his UE are "numb and tingling." Denies SI, HI. 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 PE: Skin: Clear Heart: Sinus tachy Lungs: Clear MS: Moves all extremities without difficulty Neuro: Appropriate affect Psych: appropriate affect The patient will proceed to the ED for further evaluation. Discharge Disposition - Diagnosis Anxiety - Referrals - Patient Instructions - Post Discharge Activity
[2017-11-29 20:53] VITALS: BP 113/63; PULSE 108; TEMP 98.6; BMI 23.3
--- NOTE | 2017-11-29 22:15 | PDOC ---
History of Present Illness - General History Source: Patient Exam Limitations: No Limitations - History of Present Illness Initial Comments: 11/29/17 23:19 The patient is a 27-year-old male, with a significant past medical history of HTN, GERD, anxiety, and depression, who presents to the ED s/p syncopal episode. The patient was with his who was a patient in the ER when he suddenly felt a burning sensation in his chest, faint, and short of breath causing him to pass out. Patient was seen multiple times in the ED for similar chest pain and was diagnosed with median arcuate ligament syndrome. The patient denies any fever, chills, nausea, vomiting, diarrhea, or abdominal pain. Denies any urinary symptoms. Allergies: Famotidine Social History: Former smoker (Quit 15 years ago). Denies EtOH use and recreational drug use. Primary Care Physician: Dr. Shrestha GI: Dr. Tiffanie Davenport <Lian Leon - Last Filed: 11/29/17 23:25> <Edilia Olguin - Last Filed: 11/29/17 23:46> - General Chief Complaint: Psychiatric Stated Complaint: SICK Time Seen by Provider: 11/29/17 20:44 Past History <Lian Leon - Last Filed: 11/29/17 23:25> - Past Medical History Anemia: No Asthma: No Cancer: No Cardiac Disorders: Yes (PALPITATIONS) CVA: No COPD: No CHF: No DVT: No Dementia: No Diabetes: No GI Disorders: Yes (GERD) Disorders: No HTN: Yes Hypercholesterolemia: No Liver Disease: No Psychiatric Problems: Yes (Anxiety, Depression) Seizures: No Thyroid Disease: No - Immunization History Immunization Up to Date: Yes - Suicide/Smoking/Psychosocial Hx Smoking Status: No Smoking History: Never smoked Have you smoked in the past 12 months: No Number of Cigarettes Smoked Daily: 0 If you are a former smoker, when did you quit?: 15 years ago Information on smoking cessation initiated: No Hx Alcohol Use: No Drug/Substance Use Hx: No Substance Use Type: None Hx Substance Use Treatment: No <Edilia Olguin - Last Filed: 11/29/17 23:46> - Past Medical History Allergies/Adverse Reactions: Allergies Allergy/AdvReac Type Severity Reaction Status Date / Time famotidine [From Pepcid] Allergy Verified 10/07/17 20:53 Home Medications: Ambulatory Orders Famotidine [Pepcid] 40 mg PO DAILY 10/10/17 Mirtazapine 15 mg PO HS 10/10/17 Nortriptyline HCl [Pamelor -] 25 mg PO HS 10/10/17 Paroxetine HCl [Paxil] 20 mg PO DAILY 10/10/17 Dextrose 5%-0.45% Saline [D5-1/2Ns -] 1,000 ml IV ASDIR infus.bag 10/12/17 Ketorolac Injection [Toradol Injection -] 15 mg IVPUSH Q6H PRN via 10/12/17 Morphine Sulfate 2 mg IVPUSH Q6H PRN #6 vial MDD 8 10/12/17 Ondansetron Injection [Zofran Injection] 8 mg IVPB Q6H PRN vial 10/12/17 Pantoprazole Sodium [Protonix -] 40 mg PO DAILY tablet.ec 10/12/17 Review of Systems - Review of Systems Able to Perform ROS?: Yes Comments:: 11/29/17 23:26 CONSTITUTIONAL: Absent: fever, chills, diaphoresis, generalized weakness, malaise, loss of appetite HEENT: Absent: rhinorrhea, nasal congestion, throat pain, throat swelling, difficulty swallowing, mouth swelling, ear pain, eye pain, visual Changes CARDIOVASCULAR: Present: chest pain, syncope Absent: palpitations, irregular heart rate, lightheadedness, peripheral edema RESPIRATORY: Present: shortness of breath Absent: cough, dyspnea with exertion, orthopnea, wheezing, stridor, hemoptysis GASTROINTESTINAL: Absent: abdominal pain, abdominal distension, nausea, vomiting, diarrhea, constipation, melena, hematochezia GENITOURINARY: Absent: dysuria, frequency, urgency, hesitancy, hematuria, flank pain, genital pain MUSCULOSKELETAL: Absent: myalgia, arthralgia, joint swelling SKIN: Absent: rash, itching, pallor <Lian Leon - Last Filed: 11/29/17 23:25> *Physical Exam - Vital Signs Last Vital Signs Temp Pulse Resp BP Pulse Ox 98.6 F 108 H 18 113/63 100 11/29/17 20:49 11/29/17 20:49 11/29/17 20:49 11/29/17 20:49 11/29/17 20:49 - Physical Exam Comments: 11/29/17 23:27 GENERAL: Well developed, well nourished. Awake and alert. No acute distress. HEENT: Normocephalic, atraumatic. PERRLA, EOMI. No conjunctival pallor. Sclera are non- icteric. Moist mucous membranes. Oropharynx is clear. NECK: Supple. Full ROM. No JVD. Carotid pulses 2+ and symmetric, without bruits. No thyromegaly. No lymphadenopathy. CARDIOVASCULAR: Regular rate and rhythm. No murmurs, rubs, or gallops. Distal pulses are 2+ and symmetric. PULMONARY: No evidence of respiratory distress. Lungs clear to auscultation bilaterally. No wheezing, rales or rhonchi. ABDOMINAL: Soft. Non-tender. Non-distended. No rebound or guarding. No organomegaly. Normoactive bowel sounds. MUSCULOSKELETAL Normal range of motion at all joints. No bony deformities or tenderness. No CVA tenderness. EXTREMITIES: No cyanosis. No clubbing. No edema. No calf tenderness. SKIN: Warm and dry. Normal capillary refill. No rashes. No jaundice. NEUROLOGICAL: Alert, awake, appropriate. Cranial nerves 2-12 intact. PSYCHIATRIC: Cooperative. Good eye contact. Appropriate mood and affect. <Lian Leon - Last Filed: 11/29/17 23:25> - Vital Signs Last Vital Signs Temp Pulse Resp BP Pulse Ox 98.6 F 108 H 18 113/63 100 11/29/17 20:49 11/29/17 20:49 11/29/17 20:49 11/29/17 20:49 11/29/17 20:49 <Edilia Olguin - Last Filed: 11/29/17 23:46> ED Treatment Course - LABORATORY CBC & Chemistry Diagram: 11/29/17 22:45 <Lian Leon - Last Filed: 11/29/17 23:25> - LABORATORY CBC & Chemistry Diagram: 11/29/17 22:45 <Edilia Olguin - Last Filed: 11/29/17 23:46> *DC/Admit/Observation/Transfer - Attestations Scribe Attestion: 11/29/17 23:27 Documentation prepared by Lian Leon, acting as medical imaging technologist for Edilia Olguin MD. <Lian Leon - Last Filed: 11/29/17 23:25> <Edilia Olguin - Last Filed: 11/29/17 23:46> Diagnosis at time of Disposition: Anxiety - Discharge Dispostion Disposition: HOME Condition at time of disposition: Stable - Referrals Referrals: Ze Shrestha MD [Primary Care Provider] - Broderick Davenport DO [Staff Physician] - - Patient Instructions Printed Discharge Instructions: DI for Syncope in Adults (Fainting), DI for Anxiety -- Adult Additional Instructions: please follow up with your regular doctor - Post Discharge Activity
[2017-11-29 23:25] LABS: ALBUMIN 3.8 g/dl (3.4-5.0); ALK PHOS 59 U/L (45-117); ANION GAP 6 MMOL/L (8-16); BILIRUBIN,TOTAL 0.4 mg/dL (0.2-1); BLOOD UREA NITROGEN 15 mg/dL (7-18); CALCIUM 8.7 mg/dL (8.5-10.1); CHLORIDE 105 mmol/L (98-107); CO2 29 mmol/L (21-32); GLUCOSE,RANDOM 112 mg/dL (74-106); POTASSIUM 3.5 mmol/L (3.5-5.1); SGOT/AST 13 U/L (15-37); SGPT/ALT 7 U/L (13-61); SODIUM 140 mmol/L (136-145); TOT PROT 6.9 g/dl (6.4-8.2)
[2017-11-30] MEDS ORDERED: PANTOPRAZOLE 40 MG TABLET (FP) PO ONE (00:23)
[2017-11-30] MEDS ORDERED: PANTOPRAZOLE 40 MG TABLET (FP) ONE (00:24)
--- NOTE | 2017-11-30 10:27 | EKG ---
Test Reason : Blood Pressure : / mmHG Vent. Rate : 074 BPM Atrial Rate : 074 BPM P-R Int : 126 ms QRS Dur : 092 ms QT Int : 408 ms P-R-T Axes : 067 049 032 degrees QTc Int : 452 ms NORMAL SINUS RHYTHM WITH SINUS ARRHYTHMIA NORMAL ECG WHEN COMPARED WITH ECG OF 13-OCT-2017 09:20, NO SIGNIFICANT CHANGE WAS FOUND Confirmed by AALIYAH HERNANDEZ MD ([id number]) on 11/30/2017 10:27:51 AM Referred By: Confirmed By:AALIYAH HERNANDEZ MD
== END 2017-11-30 00:35 | disposition home or self-care (01) ==
LOC: JER 20:39
DX: F41.9 Anxiety disorder, unspecified (principal); I10 Essential (primary) hypertension; K21.9 Gastro-esophageal reflux disease without esophagitis; R00.2 Palpitations; F32.9 Major depressive disorder, single episode, unspecified; Z87.891 Personal history of nicotine dependence
CPT/HCPCS: 36415; 80053; 84484; 93005; 93010; 99282-25

== ENCOUNTER 2018-02-24 15:05 | Emergency (ER) | payer OTHER ==
--- NOTE | 2018-02-24 15:09 | PDOC ---
Rapid Medical Evaluation Time Seen by Provider: 02/24/18 15:08 Medical Evaluation: Allergies Allergy/AdvReac Type Severity Reaction Status Date / Time famotidine [From Pepcid] Allergy Verified 10/07/17 20:53 I have performed a brief in-person evaluation of this patient. The patient presents with a chief complaint of: chest pain started 30 minutes ago while driving with difficulty breathing. Pt does have acid reflux and anxiety for which he is taking his medication. He states this has happened before and is usually due to his anxiety. Pertinent physical exam findings: HTN and tachycardic I have ordered the following: EKG, labs The patient will proceed to the ED for further evaluation. Discharge Disposition - Diagnosis Chest pain - Referrals - Patient Instructions - Post Discharge Activity
[2018-02-24 15:15] VITALS: BMI 20.1
[2018-02-24 15:34] LABS: BASO % 0.8 % (0-2.0); EOS % 4.2 % (0-4.5); HEMATOCRIT 42.5 % (35.4-49); HEMOGLOBIN 15.2 GM/dL (11.7-16.9); LYMPH % 25.3 % (8-40); MCH 29.1 pg (25.7-33.7); MCHC 35.7 g/dl (32.0-35.9); MEAN CELL VOLUME 81.5 fl (80-96); MEAN PLT VOLUME 8.3 fl (7.5-11.1); MONO % 8.3 % (3.8-10.2); NEUT % 61.4 % (42.8-82.8); PLATELET COUNT 226 K/MM3 (134-434); RBC 5.21 M/mm3 (4.00-5.60); RDW 12.5 % (11.9-15.9); WHITE BLOOD COUNT 5.8 K/mm3 (4.0-10.0)
[2018-02-24 16:03] LABS: ALBUMIN 4.3 g/dl (3.4-5.0); ALK PHOS 73 U/L (45-117); ANION GAP 7 MMOL/L (8-16); BILIRUBIN,TOTAL 0.4 mg/dL (0.2-1); BLOOD UREA NITROGEN 12 mg/dL (7-18); CALCIUM 8.8 mg/dL (8.5-10.1); CHLORIDE 104 mmol/L (98-107); CO2 30 mmol/L (21-32); GLUCOSE,RANDOM 108 mg/dL (74-106); POTASSIUM 3.9 mmol/L (3.5-5.1); SGOT/AST 15 U/L (15-37); SGPT/ALT 10 U/L (13-61); SODIUM 141 mmol/L (136-145); TOT PROT 7.8 g/dl (6.4-8.2)
--- NOTE | 2018-02-24 16:43 | PDOC ---
History of Present Illness - General Chief Complaint: Chest Pain Stated Complaint: CHEST PAIN Time Seen by Provider: 02/24/18 15:08 History Source: Patient Exam Limitations: No Limitations - History of Present Illness Initial Comments: 02/24/18 16:03 27-year-old male with history of anxiety presents to ED with complaints of intermittent left-sided chest pain which he describes as sharp and constant pressure moderately relieved after taking his Klonopin. Patient became concerned when he started to have tingling to his left arm and decided come to the ER. Patient states has been having similar symptoms for over the past year started on Klonopin about 6-7 months ago secondary to the symptoms. Patient does have a network intern appointment on the of this month. Patient denies shortness of breath, dizziness, palpitations, nausea, abdominal pain, or weakness. Presenting Symptoms: Chest Pain Timing/Duration: reports: resolved prior to arrival Severity/Quality: reports: mild, pressure, sharp Location: reports: substernal Chest Pain Radiation: reports: arms (left (tingling)) Activities at Onset: reports: none Prior Chest Pain/Cardiac Workup: reports: Other Nitro Today/Relief: Yes: no nitro taken today Aspirin Received prior to arrival (Core Measure): Yes: no aspirin today Associated Symptoms: Yes: Chest Pain/pressure Past History - Past Medical History Allergies/Adverse Reactions: Allergies Allergy/AdvReac Type Severity Reaction Status Date / Time famotidine [From Pepcid] Allergy Verified 10/07/17 20:53 Home Medications: Ambulatory Orders Clonazepam 0.5 mg PO HS 02/13/18 Omeprazole 40 mg PO DAILY 02/13/18 Anemia: No Asthma: No Cancer: No Cardiac Disorders: Yes (PALPITATIONS) CVA: No COPD: No CHF: No DVT: No Dementia: No Diabetes: No GI Disorders: Yes (GERD) Disorders: No HTN: Yes Hypercholesterolemia: Yes Liver Disease: No Psychiatric Problems: Yes (Anxiety, Depression) Seizures: No Thyroid Disease: No - Immunization History Immunization Up to Date: Yes - Suicide/Smoking/Psychosocial Hx Smoking Status: No Smoking History: Never smoked Have you smoked in the past 12 months: No Number of Cigarettes Smoked Daily: 0 If you are a former smoker, when did you quit?: 15 years ago Hx Alcohol Use: No Drug/Substance Use Hx: No Substance Use Type: None Hx Substance Use Treatment: No Patient Lives Alone: No Lives with/in: spouse/SO Cardiac Specific PMH - Complaint Specific PMHX Pacemaker: No Review of Systems - Review of Systems Able to Perform ROS?: Yes Constitutional: No: Symptoms Reported HEENTM: No: Symptoms Reported Respiratory: No: Symptoms reported Cardiac (ROS): Yes: Chest Pain ABD/GI: No: Symptoms Reported : No: Symptoms Reported Musculoskeletal: Yes: Muscle Pain (left arm) Integumentary: No: Symptoms Reported Neurological: No: Symptoms reported Psychiatric: Yes: Anxiety, Depression. No: Sleep Pattern Change, Change in Appetite Hematologic/Lymphatic: No: Symptoms Reported *Physical Exam - Vital Signs Last Vital Signs Temp Pulse Resp BP Pulse Ox 87 18 143/85 100 02/24/18 15:58 02/24/18 15:08 02/24/18 15:58 02/24/18 15:08 - Physical Exam General Appearance: Yes: Nourished, Appropriately Dressed. No: Apparent Distress HEENT: negative: Pale Conjunctivae Neck: positive: Normal Thyroid, Supple Respiratory/Chest: positive: Lungs Clear, Normal Breath Sounds. negative: Chest Tender, Respiratory Distress, Accessory Muscle Use Cardiovascular: positive: Regular Rhythm, Regular Rate (87 on monitor). negative: Murmur Gastrointestinal/Abdominal: positive: Soft. negative: Tenderness Extremity: negative: Pedal Edema Integumentary: positive: Normal Color, Warm, Moist Neurologic: positive: Normal Mood/Affect (mildly anxious), Motor Strength 5/5 Heart Score/ECG Review - ECG Intrepretation Rhythm: Regular Rhythm (normal sinus rhythm, rate 93 WI interval 110) Moderate Sedation - Procedure Monitoring Vital Signs: Procedure Monitoring Vital Signs Temperature Pulse Rate 87 02/24/18 15:58 Respiratory Rate 18 02/24/18 15:08 Blood Pressure 143/85 02/24/18 15:58 O2 Sat by Pulse Oximetry (%) 100 02/24/18 15:08 ED Treatment Course - LABORATORY CBC & Chemistry Diagram: 02/24/18 15:25 02/24/18 15:26 - ADDITIONAL ORDERS Additional order review: Laboratory Results 02/24/18 15:26 Sodium 141 Potassium 3.9 Chloride 104 Carbon Dioxide 30 Anion Gap 7 L BUN 12 Creatinine 1.0 Creat Clearance w eGFR > 60 Random Glucose 108 H Calcium 8.8 Total Bilirubin 0.4 AST 15 ALT 10 L Alkaline Phosphatase 73 Creatine Kinase 146 Troponin I < 0.02 Total Protein 7.8 Albumin 4.3 02/24/18 15:25 RBC 5.21 MCV 81.5 MCHC 35.7 RDW 12.5 MPV 8.3 Neutrophils % 61.4 Lymphocytes % 25.3 D Monocytes % 8.3 Eosinophils % 4.2 Basophils % 0.8 - RADIOLOGY Radiology Studies Ordered: Category Date Time Status CHEST X-RAY PORTABLE* [RAD] Stat Radiology 02/24/18 15:54 Ordered Medical Decision Making - Medical Decision Making 02/24/18 16:02 Chief complaint: Left-sided chest pain with left arm tingling which has resolved since arrival. Patient states symptoms lasted about 15 minutes before taking his Klonopin which seemed to moderately relieve his discomfort. Patient has a network intern appointment on March 03 Exam: No reproducible chest pain. Repeat vital stable. EKG normal sinus rhythm. Plan: Labs, chest x-ray, and EKG ordered patient currently on monitor, 02/24/18 16:53 Laboratory Tests 02/24/18 02/24/18 15:25 15:26 WBC 5.8 Hgb 15.2 Hct 42.5 Plt Count 226 D MPV 8.3 Absolute Neuts (auto) 3.6 Sodium 141 Potassium 3.9 Chloride 104 Carbon Dioxide 30 Anion Gap 7 L BUN 12 Creatinine 1.0 Creat Clearance w eGFR > 60 Random Glucose 108 H Calcium 8.8 Total Bilirubin 0.4 AST 15 ALT 10 L Creatine Kinase 146 Troponin I < 0.02 02/24/18 16:54 Chest x-ray shows clear lungs and normal mediastinum with no acute pathology. Patient remains asymptomatic. Will repeat vitals and discharged home with recommendations to follow up with network intern as previously scheduled. patient also recommended to use relaxation techniques and use Klonopin when unable to decrease anxiety. *DC/Admit/Observation/Transfer Diagnosis at time of Disposition: Chest pain - Discharge Dispostion Disposition: HOME Condition at time of disposition: Good - Referrals - Patient Instructions Printed Discharge Instructions: DI for Chest Pain Additional Instructions: Please keep your appointmeny with the network intern as scheduled. Use Klonopin if relaxation techniques do not work for anxiety. If he develop any palpitations, dizziness, difficulty breathing, return to ED immediately otherwise you may also follow-up with her primary care doctor . - Post Discharge Activity
[2018-02-24 17:25] VITALS: BP 120/84; PULSE 75
--- NOTE | 2018-02-26 12:28 | EKG ---
Test Reason : Blood Pressure : / mmHG Vent. Rate : 093 BPM Atrial Rate : 093 BPM P-R Int : 110 ms QRS Dur : 094 ms QT Int : 350 ms P-R-T Axes : 078 066 061 degrees QTc Int : 435 ms SINUS RHYTHM WITH SINUS ARRHYTHMIA WITH SHORT CT OTHERWISE NORMAL ECG WHEN COMPARED WITH ECG OF 29-NOV-2017 22:03, NO SIGNIFICANT CHANGE WAS FOUND Confirmed by TODD THOMPSON MD ([id number]) on 02/26/2018 12:27:58 PM Referred By: Confirmed By:TODD THOMPSON MD
== END 2018-02-24 17:25 | disposition home or self-care (01) ==
LOC: JER 15:05
DX: R07.9 Chest pain, unspecified (principal); F41.8 Other specified anxiety disorders; I10 Essential (primary) hypertension; E78.00 Pure hypercholesterolemia, unspecified; K21.9 Gastro-esophageal reflux disease without esophagitis
CPT/HCPCS: 36415; 71045-TC-FY; 80053; 82550; 84484; 85025; 93005; 93010; 99282-25

== ENCOUNTER 2018-03-06 20:00 | Emergency (ER) | payer OTHER ==
[2018-03-06 20:09] VITALS: BP 115/79; PULSE 80; TEMP 98.3
[2018-03-06] MEDS ORDERED: clonazePAM 0.5 MG TABLET PO ONE (20:20)
--- NOTE | 2018-03-06 20:23 | PDOC ---
History of Present Illness - General Chief Complaint: RX Refill Stated Complaint: RX Refill Time Seen by Provider: 03/06/18 20:17 - History of Present Illness Initial Comments: 03/06/18 20:21 27-year-old male with a past medical history significant for depression and anxiety presents requesting a refill on Klonopin. He has no suicidal or homicidal ideation. Past History - Past Medical History Allergies/Adverse Reactions: Allergies Allergy/AdvReac Type Severity Reaction Status Date / Time famotidine [From Pepcid] Allergy Verified 03/06/18 20:07 Home Medications: Ambulatory Orders Clonazepam 0.5 mg PO HS 02/13/18 clonazePAM [Klonopin -] 0.5 mg PO ONCE #1 tablet MDD 03/15 tab 03/04/18 Anemia: No Asthma: No Cancer: No Cardiac Disorders: Yes (PALPITATIONS) CVA: No COPD: No CHF: No DVT: No Dementia: No Diabetes: No GI Disorders: Yes (GERD) Disorders: No HTN: Yes Hypercholesterolemia: Yes Liver Disease: No Psychiatric Problems: Yes (Anxiety, Depression) Seizures: No Thyroid Disease: No - Immunization History Immunization Up to Date: Yes - Suicide/Smoking/Psychosocial Hx Smoking Status: No Smoking History: Never smoked Have you smoked in the past 12 months: No Number of Cigarettes Smoked Daily: 0 If you are a former smoker, when did you quit?: 15 years ago Information on smoking cessation initiated: No Hx Alcohol Use: No Drug/Substance Use Hx: No Substance Use Type: None Hx Substance Use Treatment: No Review of Systems - Review of Systems Psychiatric: Yes: Other *Physical Exam - Vital Signs Last Vital Signs Temp Pulse Resp BP Pulse Ox 98.3 F 80 18 115/79 99 03/06/18 20:08 03/06/18 20:08 03/06/18 20:08 03/06/18 20:08 03/06/18 20:08 - Physical Exam Comments: 03/06/18 20:21 HEAD: NC/AT EYES: Conjuntiva clear SKIN: Normal color and temperature no lesions or rashes Moderate Sedation - Procedure Monitoring Vital Signs: Procedure Monitoring Vital Signs Temperature 98.3 F 03/06/18 20:08 Pulse Rate 80 03/06/18 20:08 Respiratory Rate 18 03/06/18 20:08 Blood Pressure 115/79 03/06/18 20:08 O2 Sat by Pulse Oximetry (%) 99 03/06/18 20:08 *DC/Admit/Observation/Transfer Diagnosis at time of Disposition: Prescription refill - Discharge Dispostion Disposition: HOME Condition at time of disposition: Stable Decision to Admit order: No - Referrals Referrals: Ze Shrestha MD [Primary Care Provider] - - Patient Instructions Additional Instructions: Please return to the ER should you have any further request for medication. We need to be able to verify the dose before we can refill any prescription. Prescription refills although sometimes verified R at the providers discretion. It is very important you to follow up with her psychiatrist to get the medication refilled properly. Please call your psychiatrist service tomorrow for medication refill. - Post Discharge Activity
[2018-03-06] MEDS ORDERED: clonazePAM 0.5 MG TABLET ONE (20:27)
== END 2018-03-06 20:37 | disposition home or self-care (01) ==
LOC: JERFT 20:00
DX: F41.8 Other specified anxiety disorders (principal); F32.9 Major depressive disorder, single episode, unspecified; I10 Essential (primary) hypertension; K21.9 Gastro-esophageal reflux disease without esophagitis
CPT/HCPCS: 99281-25

== ENCOUNTER 2018-03-06 22:15 | Emergency (ER) | payer OTHER ==
[2018-03-06 22:21] VITALS: BP 122/84; PULSE 87; TEMP 98.1
--- NOTE | 2018-03-06 22:36 | PDOC ---
History of Present Illness - General Chief Complaint: RX Refill Stated Complaint: RX Refill Time Seen by Provider: 03/06/18 22:30 - History of Present Illness Initial Comments: 03/06/18 22:34 27-year-old male seen earlier this evening requesting a refill on Klonopin for anxiety and depression his prescription was not verified he comes today with the bottle again second visit this evening I will refill this for him and give him a 5 day supply. Past History - Past Medical History Allergies/Adverse Reactions: Allergies Allergy/AdvReac Type Severity Reaction Status Date / Time famotidine [From Pepcid] Allergy Verified 03/06/18 22:18 Home Medications: Ambulatory Orders Clonazepam 0.5 mg PO HS 02/13/18 Clonazepam 0.5 mg PO HS #5 tab.rapdis MDD 1 03/06/18 Anemia: No Asthma: No Cancer: No Cardiac Disorders: Yes (PALPITATIONS) CVA: No COPD: No CHF: No DVT: No Dementia: No Diabetes: No GI Disorders: Yes (GERD) Disorders: No HTN: Yes Hypercholesterolemia: Yes Liver Disease: No Psychiatric Problems: Yes (Anxiety, Depression) Seizures: No Thyroid Disease: No - Immunization History Immunization Up to Date: Yes - Suicide/Smoking/Psychosocial Hx Smoking Status: No Smoking History: Never smoked Have you smoked in the past 12 months: No Number of Cigarettes Smoked Daily: 0 If you are a former smoker, when did you quit?: 15 years ago Information on smoking cessation initiated: No Hx Alcohol Use: No Drug/Substance Use Hx: No Substance Use Type: None Hx Substance Use Treatment: No Review of Systems - Review of Systems Constitutional: Yes: See HPI *Physical Exam - Vital Signs Last Vital Signs Temp Pulse Resp BP Pulse Ox 98.1 F 87 18 122/84 99 03/06/18 22:19 03/06/18 22:19 03/06/18 22:19 03/06/18 22:19 03/06/18 22:19 - Physical Exam Comments: 03/06/18 22:34 Suicidal or homicidal ideation. Patient is requesting a medication refill. Moderate Sedation - Procedure Monitoring Vital Signs: Procedure Monitoring Vital Signs Temperature 98.1 F 03/06/18 22:19 Pulse Rate 87 03/06/18 22:19 Respiratory Rate 18 03/06/18 22:19 Blood Pressure 122/84 03/06/18 22:19 O2 Sat by Pulse Oximetry (%) 99 03/06/18 22:19 *DC/Admit/Observation/Transfer Diagnosis at time of Disposition: Prescription refill - Discharge Dispostion Disposition: HOME Condition at time of disposition: Stable Decision to Admit order: No - Prescriptions Prescriptions: Clonazepam 0.5 mg PO HS #5 tab.rapdis MDD 1 - Referrals Referrals: Ze Shrestha MD [Primary Care Provider] - - Patient Instructions Additional Instructions: Kelsie follow-up with her psychiatrist for further medication refills - Post Discharge Activity
== END 2018-03-06 22:41 | disposition home or self-care (01) ==
LOC: JERFT 22:15
DX: F41.8 Other specified anxiety disorders (principal)
CPT/HCPCS: 99281-25

== ENCOUNTER 2018-03-28 05:25 | Emergency (ER) | payer OTHER ==
--- NOTE | 2018-03-28 06:13 | PDOC ---
Attending Attestation - Resident Resident Name: Felice Roque - ED Attending Attestation I have performed the following: I have examined & evaluated the patient, The case was reviewed & discussed with the resident, I agree w/resident's findings & plan - HPI HPI: 03/28/18 06:12 27-year-old male with abdominal pain, vomiting and diarrhea since 3 AM. He describes the pain as sharp, it does not radiate to the back. He has a history of intermittent chronic abdominal pain but states he does not normally vomit. - Physicial Exam PE: 03/28/18 06:13 GENERAL: Awake, in no acute distress HEAD: No signs of trauma EYES: ENT:clear without exudates. Moist mucosa NECK: Normal ROM, LUNGS:. Normal work of breathing. HEART: Regular rate and rhythm, ABDOMEN: Soft, nondistended , mild diffuse tenderness, no guarding CHEST WALL: BACK: No midline tenderness. EXTREMITIES:. No erythema, or tenderness NEUROLOGICAL: Alert, SKIN: Warm, Dry - Medical Decision Making 03/28/18 06:13 19-year-old male with abdominal pain and vomiting. Labs pending. IV fluids and anti-emetics given. With reevaluation and final disposition pending
[2018-03-28] MEDS ORDERED: ACETAMINOPHEN 1000 MG/100 ML VIAL (NON FORMULARY) IVPB ONE (06:14)
[2018-03-28] MEDS ORDERED: SODIUM CHLORIDE 0.9% 500 ML INFUS.BAG IV ONE (06:14)
[2018-03-28] MEDS ORDERED: ONDANSETRON 4 MG/2 ML VIAL IVPUSH ONE (06:14)
--- NOTE | 2018-03-28 06:46 | PDOC ---
History of Present Illness - General Chief Complaint: Pain Stated Complaint: ABD PAIN Time Seen by Provider: 03/28/18 05:59 History Source: Patient, Spouse ( present at bedside), Old Records Exam Limitations: No Limitations - History of Present Illness Initial Comments: HPI: 27 y/o male JL complaining of abdominal pain with nausea, vomiting, and diarrhea since 03:00 this AM. States pain is generalized in all four quadrants. Emesis is nonbloody and nonbilious. Diarrhea is watery without blood. Endorses chronic abdominal pain secondary to median arcuate ligament syndrome followed by Dr. Davenport. Has undergone multiple abdominal and pelvic CTs, a GED, a colonoscopy, and an abdominal MRI in 2018. Todays pain is more intense but in the same location. reports multiple children at home with vomiting. PCP: Dr. Shrestha GI: Dr. Davenport Past History - Past Medical History Allergies/Adverse Reactions: Allergies Allergy/AdvReac Type Severity Reaction Status Date / Time famotidine [From Pepcid] Allergy Verified 03/28/18 05:39 Home Medications: Ambulatory Orders Clonazepam 0.5 mg PO HS 02/13/18 Clonazepam 0.5 mg PO HS #5 tab.rapdis MDD 1 03/06/18 Ondansetron [Zofran *Odt*] 8 mg SL TID PRN #15 od.tablet 03/28/18 Anemia: No Asthma: No Cancer: No Cardiac Disorders: Yes (PALPITATIONS) CVA: No COPD: No CHF: No DVT: No Dementia: No Diabetes: No GI Disorders: Yes (GERD) Disorders: No HTN: Yes Hypercholesterolemia: Yes Liver Disease: No Psychiatric Problems: Yes (Anxiety, Depression) Seizures: No Thyroid Disease: No - Immunization History Immunization Up to Date: Yes - Suicide/Smoking/Psychosocial Hx Smoking Status: No Smoking History: Never smoked Have you smoked in the past 12 months: No Number of Cigarettes Smoked Daily: 0 If you are a former smoker, when did you quit?: 15 years ago Information on smoking cessation initiated: No Hx Alcohol Use: Yes Drug/Substance Use Hx: No Substance Use Type: None Hx Substance Use Treatment: No Review of Systems - Review of Systems Able to Perform ROS?: Yes Comments:: In addition to that documented in the HPI above, the additional ROS was obtained : Constitutional: Endorses fever to 101 and chills one month ago Eyes: Denies vision changes ENMT: Denies sore throat CV: Endorses lower left sided chest pain for the past several weeks Resp: Denies SOB GI: Endorses vomiting and diarrhea : Denies painful urination, dysuria, or hematuria MSK: Denies recent trauma Skin: Denies new rashes Neuro: Denies new numbness or tingling or weakness Endocrine: Denies polyuria Heme: Denies bleeding or bruising *Physical Exam - Vital Signs Last Vital Signs Temp Pulse Resp BP Pulse Ox 98 F 108 H 19 130/78 100 03/28/18 05:25 03/28/18 05:25 03/28/18 05:25 03/28/18 05:25 03/28/18 05:25 - Physical Exam Comments: Constitutional: Well-developed, well-nourished, nontoxic adult male in no acute distress but moderate obvious discomfort. Found semi-fowlers on hospital bed. Alert and oriented x4. Answered all questions appropriately and completely. Head: Normocephalic. No obvious external signs of trauma. Eyes: Sclerae white. EARS: Hearing grossly intact. NOSE: No nasal discharge. Neck: Supple, trachea is midline. Cardiovascular: Regular rate and regular rhythm. No murmur, rubs, clicks, or gallops. Peripheral pulses: Radial pulses full. Respiratory: Breathing unlabored. Equal chest rise and fall. Clear to auscultation bilaterally. No stridor, no wheezing, no rhonchi. Gastrointestinal: abdomen is tender in all four quadrants without rebound or guarding. Nondistended. No overlying skin lesions or obvious signs of trauma. Neuro: Alert and oriented. Moving all four extremities spontaneously. Skin: Warm, dry, and intact. : No R or L CVA tenderness. Psych: Affect: appropriate. Mood: normal. Moderate Sedation - Procedure Monitoring Vital Signs: Procedure Monitoring Vital Signs Temperature 98 F 03/28/18 05:25 Pulse Rate 108 H 03/28/18 05:25 Respiratory Rate 19 03/28/18 05:25 Blood Pressure 130/78 03/28/18 05:25 O2 Sat by Pulse Oximetry (%) 100 03/28/18 05:25 ED Treatment Course - LABORATORY CBC & Chemistry Diagram: 03/28/18 06:54 03/28/18 07:51 - RADIOLOGY Radiology Studies Ordered: Category Date Time Status CHEST PA & LAT [RAD] Stat Radiology 03/28/18 06:22 Ordered Medical Decision Making - Medical Decision Making 27 y/o male complaining of generalized abdominal pain with nausea/vomiting and diarrhea for several hours. H/o of MALT. Pain similar to previous symptoms. Multiple sick contacts at home with similar symptoms. Ordered Zofran and IVFB for symptom relief. Labs ordered. 03/28/18 07:07 Pt signed out to resident Dr. Fairbanks after he was verbally appraised of the pt's HPI, ED course, and current plan of management. Will follow up on pending labs. Dispo pending results and pt reassessment. *DC/Admit/Observation/Transfer Diagnosis at time of Disposition: Nausea and vomiting, Abdominal pain - Discharge Dispostion Disposition: HOME Condition at time of disposition: Improved - Prescriptions Prescriptions: Ondansetron [Zofran *Odt*] 8 mg SL TID PRN #15 od.tablet PRN Reason: Nausea And/Or Vomiting - Referrals Referrals: Ze Shrestha MD [Primary Care Provider] - Anoop Ponce MD [Staff Physician] - Broderick Davenport DO [Staff Physician] - - Patient Instructions Printed Discharge Instructions: DI for Nausea -- Adult Additional Instructions: You were evaluated in the emergency department for your nausea, vomiting, diarrhea, and abdominal pain. your labs showed a slight elevation of white blood cell count of 12.8, likely due to a virus. The rest of your labs and imaging are within normal limits. Please follow up with your credit control assistant within 72 hours after discharge for follow up care and management. Please take the medication prescribed to you as needed for nausea and vomiting. Please return to the emergency department if you have worsening symptoms or new concerning symptoms such as fevers, blood in the stool or vomit, and uncontrollable abdominal pain with nausea and vomiting. Thank you. - Post Discharge Activity Forms/Work/School Notes: Back to Work
[2018-03-28] MEDS ORDERED: ACETAMINOPHEN INJECTION 100 ML IVPB ONE (06:56)
[2018-03-28] MEDS ORDERED: ONDANSETRON 4 MG/2 ML VIAL ONE (06:58)
[2018-03-28 07:02] LABS: BASO % 0.2 % (0-2.0); EOS % 0.7 % (0-4.5); HEMATOCRIT 48.7 % (35.4-49); HEMOGLOBIN 16.2 GM/dL (11.7-16.9); LYMPH % 4.7 % (8-40); MCH 27.1 pg (25.7-33.7); MCHC 33.2 g/dl (32.0-35.9); MEAN CELL VOLUME 81.6 fl (80-96); MEAN PLT VOLUME 8.8 fl (7.5-11.1); MONO % 4.6 % (3.8-10.2); NEUT % 89.8 % (42.8-82.8); PLATELET COUNT 191 K/MM3 (134-434); RBC 5.96 M/mm3 (4.00-5.60); RDW 13.2 % (11.9-15.9); WHITE BLOOD COUNT 12.8 K/mm3 (4.0-10.0)
--- NOTE | 2018-03-28 07:34 | PDOC ---
*Physical Exam - Vital Signs Last Vital Signs Temp Pulse Resp BP Pulse Ox 98.0 F 98 H 18 130/78 100 03/28/18 06:05 03/28/18 06:05 03/28/18 06:05 03/28/18 06:05 03/28/18 05:25 - Physical Exam Comments: Assumed care from Dr. Roque. 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 The patient has had multiple bouts of abdominal pain throughout the year secondary to his MALS. Currently, he has 2 daughters (children) at home with N/V/D. Patient is followed by Dr. Douglas Davenport ED Treatment Course - LABORATORY CBC & Chemistry Diagram: 03/28/18 06:54 03/28/18 07:51 - Medications Given in the ED: ED Medications Discontinued Medications Generic Name Dose Route Start Last Admin Trade Name Helen PRN Reason Stop Dose Admin Acetaminophen 1,000 mg 03/28/18 06:14 03/28/18 06:15 Ofirmev Injection - IVPB 03/28/18 06:15 1,000 mg ONCE ONE Administration Ondansetron HCl 4 mg 03/28/18 06:14 03/28/18 06:15 Zofran Injection IVPUSH 03/28/18 06:15 4 mg ONCE ONE Administration Sodium Chloride 1,000 ml 03/28/18 06:14 03/28/18 06:15 Normal Saline - IV 03/28/18 06:15 1,000 ml ONCE ONE Administration Medical Decision Making - Medical Decision Making 03/28/18 22:36 Patient has significant improvement in symptoms after fluids, tylenol, and zofran. Dr. Davenport was contacted and the MD contract law specialist stated to get an abdominal xray to rule out obstruction and free air. CXR showed no free air and no obstruction was seen on xray. labs are as follows Laboratory Tests 03/28/18 03/28/18 03/28/18 06:54 06:54 06:54 WBC 12.8 H RBC 5.96 H Hgb 16.2 Hct 48.7 MCV 81.6 MCH 27.1 MCHC 33.2 RDW 13.2 Plt Count 191 MPV 8.8 Absolute Neuts (auto) 11.5 H Neutrophils % 89.8 H D Lymphocytes % 4.7 L D Monocytes % 4.6 Eosinophils % 0.7 D Basophils % 0.2 Nucleated RBC % 0 Sodium Cancelled Potassium Cancelled Chloride Cancelled Carbon Dioxide Cancelled Anion Gap Cancelled BUN Cancelled Creatinine Cancelled Creat Clearance w eGFR Cancelled Random Glucose Cancelled Lactic Acid 1.9 Calcium Cancelled Total Bilirubin Cancelled AST Cancelled ALT Cancelled Alkaline Phosphatase Cancelled Total Protein Cancelled Albumin Cancelled Lipase Cancelled 03/28/18 07:51 WBC RBC Hgb Hct MCV MCH MCHC RDW Plt Count MPV Absolute Neuts (auto) Neutrophils % Lymphocytes % Monocytes % Eosinophils % Basophils % Nucleated RBC % Sodium 139 Potassium 3.7 Chloride 106 Carbon Dioxide 25 Anion Gap 8 BUN 14 Creatinine 1.0 Creat Clearance w eGFR > 60 Random Glucose 96 Lactic Acid Calcium 8.9 Total Bilirubin 0.8 AST 12 L ALT < 6 L Alkaline Phosphatase 63 Total Protein 7.0 Albumin 3.8 Lipase 87 labs within normal limits with a normal lactate except for a slightly raised WBC of 12.8. likely viral vs reactive due to emesis. patient was able to tolerate PO fluids and food prior to discharge. will be discharged with zofran. patient states he will follow up with the head waitress within 72 hours after discharge for follow up care and management. patient was given strict return precautions. I discussed the physical exam findings, ancillary test results, and final diagnoses with the patient. I answered all of the patients questions to their satisfaction. The patient was satisfied with the care received and felt comfortable with the discussed discharge and treatment plan and accepted it. They agreed to follow up with their primary medical physical physician within 24 -72 hours after discharge for follow up care and management Dispo: Discharge *DC/Admit/Observation/Transfer Diagnosis at time of Disposition: Nausea and vomiting Qualifiers: Vomiting type: unspecified Vomiting Intractability: unspecified Qualified Code( s): R11.2 - Nausea with vomiting, unspecified Abdominal pain Qualifiers: Abdominal location: generalized Qualified Code(s): R10.84 - Generalized abdominal pain - Discharge Dispostion Disposition: HOME Condition at time of disposition: Improved Decision to Admit order: No - Prescriptions Prescriptions: Ondansetron [Zofran *Odt*] 8 mg SL TID PRN #15 od.tablet PRN Reason: Nausea And/Or Vomiting - Referrals Referrals: eZ Shrestha MD [Primary Care Provider] - Anoop Ponce MD [Staff Physician] - Broderick Davenport DO [Staff Physician] - - Patient Instructions Printed Discharge Instructions: DI for Nausea -- Adult Additional Instructions: You were evaluated in the emergency department for your nausea, vomiting, diarrhea, and abdominal pain. your labs showed a slight elevation of white blood cell count of 12.8, likely due to a virus. The rest of your labs and imaging are within normal limits. Please follow up with your head waitress within 72 hours after discharge for follow up care and management. Please take the medication prescribed to you as needed for nausea and vomiting. Please return to the emergency department if you have worsening symptoms or new concerning symptoms such as fevers, blood in the stool or vomit, and uncontrollable abdominal pain with nausea and vomiting. Thank you. - Post Discharge Activity Forms/Work/School Notes: Back to Work
[2018-03-28 08:20] VITALS: TEMP 98.3
[2018-03-28] MEDS ORDERED: SODIUM CHLORIDE 1,000 ML IV STA (08:46)
[2018-03-28 08:49] LABS: ALBUMIN 3.8 g/dl (3.4-5.0); ALK PHOS 63 U/L (45-117); ANION GAP 8 MMOL/L (8-16); BILIRUBIN,TOTAL 0.8 mg/dL (0.2-1); BLOOD UREA NITROGEN 14 mg/dL (7-18); CALCIUM 8.9 mg/dL (8.5-10.1); CHLORIDE 106 mmol/L (98-107); CO2 25 mmol/L (21-32); GLUCOSE,RANDOM 96 mg/dL (74-106); LIPASE 87 U/L (73-393); POTASSIUM 3.7 mmol/L (3.5-5.1); SGOT/AST 12 U/L (15-37); SGPT/ALT < 6 U/L (13-61); SODIUM 139 mmol/L (136-145)
[2018-03-28 10:49] VITALS: BP 108/62; PULSE 74
--- NOTE | 2018-03-29 11:56 | EKG ---
Test Reason : Blood Pressure : / mmHG Vent. Rate : 091 BPM Atrial Rate : 091 BPM P-R Int : 120 ms QRS Dur : 084 ms QT Int : 342 ms P-R-T Axes : 069 060 009 degrees QTc Int : 420 ms NORMAL SINUS RHYTHM NONSPECIFIC T WAVE ABNORMALITY ABNORMAL ECG WHEN COMPARED WITH ECG OF 24-FEB-2018 15:11, NONSPECIFIC T WAVE ABNORMALITY, WORSE IN INFERIOR LEADS T WAVE INVERSION NOW EVIDENT IN ANTERIOR LEADS Confirmed by MARY PRETTY, AALIYAH ([id number]) on 03/29/2018 11:55:41 AM Referred By: Confirmed By:AALIYAH HERNANDEZ MD
== END 2018-03-28 10:49 | disposition home or self-care (01) ==
LOC: JER 05:25
PROC: 3E0337Z Introduction of Electrolytic and Water Balance Substance into Peripheral Vein, Percutaneous Approach (ICD-10-PCS; principal; 2018-03-28)
PROC: 3E033GC Introduction of Other Therapeutic Substance into Peripheral Vein, Percutaneous Approach (ICD-10-PCS; 2018-03-28)
PROC: 3E033NZ Introduction of Analgesics, Hypnotics, Sedatives into Peripheral Vein, Percutaneous Approach (ICD-10-PCS; 2018-03-28)
DX: R11.2 Nausea with vomiting, unspecified (principal); I77.4 Celiac artery compression syndrome; I10 Essential (primary) hypertension; E78.00 Pure hypercholesterolemia, unspecified; K21.9 Gastro-esophageal reflux disease without esophagitis; F41.8 Other specified anxiety disorders; F32.9 Major depressive disorder, single episode, unspecified
CPT/HCPCS: 36415; 71046-TC-FY; 74019-TC-FY; 80053; 83605; 83690; 85025; 93005; 93010; 96361; 96374; 96375; 99285-25; J0131; J7030

== ENCOUNTER 2018-04-21 08:44 | Emergency (ER) | payer OTHER ==
[2018-04-21 08:54] VITALS: BP 126/75; PULSE 78; TEMP 97.8
[2018-04-21] MEDS ORDERED: BACITRACIN 0.9 GM PACKET ONE (09:24)
--- NOTE | 2018-04-21 09:29 | PDOC ---
History of Present Illness - General Chief Complaint: Laceration Stated Complaint: CUT Time Seen by Provider: 04/21/18 09:06 History Source: Patient - History of Present Illness Timing/Duration: reports: this morning Severity: Yes: mild Location: reports: extremities Past History - Past Medical History Allergies/Adverse Reactions: Allergies Allergy/AdvReac Type Severity Reaction Status Date / Time famotidine [From Pepcid] Allergy Verified 03/28/18 05:39 Home Medications: Ambulatory Orders Clonazepam 0.5 mg PO HS 02/13/18 Anemia: No Asthma: No Cancer: No Cardiac Disorders: Yes (PALPITATIONS) CVA: No COPD: No CHF: No DVT: No Dementia: No Diabetes: No GI Disorders: Yes (GERD) Disorders: No HTN: Yes Hypercholesterolemia: Yes Liver Disease: No Psychiatric Problems: Yes (Anxiety, Depression) Seizures: No Thyroid Disease: No - Immunization History Immunization Up to Date: Yes - Suicide/Smoking/Psychosocial Hx Smoking Status: No Smoking History: Unknown if ever smoked Have you smoked in the past 12 months: No Number of Cigarettes Smoked Daily: 0 If you are a former smoker, when did you quit?: 15 years ago Hx Alcohol Use: Yes Drug/Substance Use Hx: No Substance Use Type: None Hx Substance Use Treatment: No Review of Systems - Review of Systems Neurological: No: Numbness *Physical Exam - Vital Signs Last Vital Signs Temp Pulse Resp BP Pulse Ox 97.8 F 78 18 126/75 99 04/21/18 08:53 04/21/18 08:53 04/21/18 08:53 04/21/18 08:53 04/21/18 08:53 - Physical Exam General Appearance: Yes: Appropriately Dressed. No: Apparent Distress HEENT: positive: Normal Voice Neck: positive: Supple Respiratory/Chest: negative: Respiratory Distress Extremity: positive: Other (~3-4 mm cutaneous lac to base of R thumb on volar aspect, no gross fb, FROMI) Integumentary: positive: Dry, Warm Neurologic: positive: Fully Oriented, Alert, Normal Mood/Affect Moderate Sedation - Procedure Monitoring Vital Signs: Procedure Monitoring Vital Signs Temperature 97.8 F 04/21/18 08:53 Pulse Rate 78 04/21/18 08:53 Respiratory Rate 18 04/21/18 08:53 Blood Pressure 126/75 04/21/18 08:53 O2 Sat by Pulse Oximetry (%) 99 04/21/18 08:53 Medical Decision Making - Medical Decision Making 04/21/18 09:26 27-year-old male, history of anxiety, here for evaluation for hand laceration. Patient states while handling his own garbage this am, a small piece of glass poked out from garbage bag and struck his right hand. States he was able to easily remove intact glass from hand. No sensory changes. Has had tetanus vaccine within the past 5 years See exam Minor lac to R hand No e/o complication at this time No need for suture repair -local wound care w/ betadine, bacitracin and dressing -tetanus UTD -reasosn to return to ED d/w pt *DC/Admit/Observation/Transfer Diagnosis at time of Disposition: Finger laceration Qualifiers: Encounter type: initial encounter Finger: thumb Damage to nail status: without damage Foreign body presence: without foreign body Laterality: right Qualified Code(s): S61.011A - Laceration without foreign body of right thumb without damage to nail, initial encounter - Discharge Dispostion Disposition: HOME Condition at time of disposition: Good - Referrals - Patient Instructions Printed Discharge Instructions: DI for Minor Laceration Additional Instructions: Your exam shows that you have a minor laceration to your right thumb with no indication of damage to your tendons. There was no indication for suture repair, as the wound is minor and superficial. Keep wound clean and dry. You can also apply small amount of bacitracin twice a day for the next 5 days. Return to ED for any concern for infection such as redness, pus or fever as discussed with you in the ER. - Post Discharge Activity
== END 2018-04-21 09:36 | disposition home or self-care (01) ==
LOC: JERFT 08:44
DX: S61.011A Laceration without foreign body of right thumb without damage to nail, initial encounter (principal); W25.XXXA Contact with sharp glass, initial encounter; Y93.E9 Activity, other interior property and clothing maintenance; Y92.038 Other place in apartment as the place of occurrence of the external cause; Y99.8 Other external cause status; I10 Essential (primary) hypertension; E78.00 Pure hypercholesterolemia, unspecified; K21.9 Gastro-esophageal reflux disease without esophagitis; F41.8 Other specified anxiety disorders
CPT/HCPCS: 99281-25

== ENCOUNTER 2018-12-06 18:30 | Emergency (ER) | payer OTHER ==
[2018-12-06 18:37] VITALS: BP 132/88; TEMP 98; BMI 21.7
--- NOTE | 2018-12-06 18:37 | PDOC ---
Rapid Medical Evaluation Time Seen by Provider: 12/06/18 18:33 Medical Evaluation: Allergies Allergy/AdvReac Type Severity Reaction Status Date / Time famotidine [From Pepcid] Allergy Verified 03/28/18 05:39 12/06/18 18:33 HPI:Weakness x1 week with associated dizziness and diarrhea, hx of GERD and anxiety PE: No gross deficits ORDERS: Labs Discharge Disposition - Diagnosis Weakness - Referrals Referrals: Anoop Ponce MD [Primary Care Provider] - - Patient Instructions - Post Discharge Activity
[2018-12-06 19:11] LABS: BASO % 0.7 % (0-2.0); HEMATOCRIT 44.2 % (35.4-49); HEMOGLOBIN 15.2 GM/dL (11.7-16.9); LYMPH % 22.6 % (8-40); MCH 28.3 pg (25.7-33.7); MCHC 34.2 g/dl (32.0-35.9); MEAN CELL VOLUME 82.8 fl (80-96); MEAN PLT VOLUME 8.2 fl (7.5-11.1); MONO % 7.3 % (3.8-10.2); NEUT % 64.4 % (42.8-82.8); PLATELET COUNT 192 K/MM3 (134-434); RBC 5.35 M/mm3 (4.00-5.60); RDW 13.1 % (11.9-15.9); WHITE BLOOD COUNT 6.4 K/mm3 (4.0-10.0)
--- NOTE | 2018-12-06 19:37 | PDOC ---
History of Present Illness - General Chief Complaint: Lightheaded Stated Complaint: Lightheaded Time Seen by Provider: 12/06/18 18:33 History Source: Patient, Old Records Exam Limitations: No Limitations - History of Present Illness Initial Comments: 12/06/18 19:53 HISTORY OF PRESENT ILLNESS: 28-year-old male past medical history of median arcuate ligament syndrome, anxiety, GERD presents emergency department for 1 week of fatigue and malaise. Patient reports he has been hydrating and tolerating food without difficulty but has continued to feel increased fatigue. Patient denies any fevers but reports having occasional chills. Patient reports a dry cough which is nonproductive. Patient reports he has been pain-free throughout the week. Patient states he is having intermittent loose brown stools without blood noted. He denies chest pain, shortness of breath, abdominal pain, nausea, vomiting. No recent travel or sick contacts. PAST MEDICAL HISTORY: see HPI SURGICAL HISTORY: Denies ALLERGIES: pepcid REVIEW OF SYSTEMS General/Constitutional: see HPI HEENT: Denies change in vision. Denies ear pain or discharge. Denies sore throat. Cardiovascular: Denies chest pain or shortness of breath. Respiratory: see HPI Gastrointestinal: Denies nausea, vomiting, diarrhea or constipation. Denies rectal bleeding. Genitourinary: Denies dysuria, frequency, or change in urination. Musculoskeletal: Denies joint or muscle swelling or pain. Denies neck or back pain. Skin and breasts: Denies rash or easy bruising. Neurologic: Denies headache, vertigo, loss of consciousness, or loss of sensation. Psychiatric: Denies depression or anxiety. Endocrine: Denies increased thirst. Denies abnormal weight change. Hematologic/Lymphatic: Denies anemia, easy bleeding, or history of blood clots. Allergic/Immunologic: Denies hives or skin allergy. Denies latex allergy. PHYSICAL EXAM General Appearance: Well-appearing, appropriately dressed. No apparent distress , no intoxication. HEENT: EOMI, PERRLA, normal voice, TMs normal. No conjunctival pallor. No photophobia, scleral icterus. Mildly erythematous oropharynx with cobblestoning noted in the posterior aspect. Neck: Supple. Trachea midline. No tenderness, rigidity, carotid bruit, stridor , lymphadenopathy, or thyromegaly. Respiratory/Chest: Lungs CTAB. No shortness of breath, chest tenderness, respiratory distress, accessory muscle use. No crackles, rales, rhonchi, stridor , wheezing, dullness Cardiovascular: RRR. S1, S2. No JVD, bradycardia, tachycardia. Holosystolic murmur. Vascular Pulses: Dorsalis-Pedis (R): 2+, Dorsalis-Pedis (L): 2+ Gastrointestinal/Abdominal: Normal bowel sounds. Abdomen soft, non-distended. No tenderness or rebound tenderness. No organomegaly, pulsatile mass, guarding, hernia, hepatomegaly, splenomegaly. Lymphatic: No adenopathy, tenderness. Musculoskeletal/Extremities: Normal inspection. FROM of all extremities, normal capillary refill. Pelvis Stable. No CVA tenderness. No tenderness to extremities, pedal edema, swelling, erythema or deformity. Integumentary: Appropriate color, dry, warm. No cyanosis, erythema, jaundice or rash Neurologic: ict analyst II-XII intact. Fully oriented, alert. Appropriate mood/affect. Motor strength 5/5. No appreciable EOM palsy, facial droop or sensory deficit. Past History - Past Medical History Allergies/Adverse Reactions: Allergies Allergy/AdvReac Type Severity Reaction Status Date / Time famotidine [From Pepcid] Allergy Verified 12/06/18 18:37 Home Medications: Ambulatory Orders Clonazepam 0.5 mg PO HS 02/13/18 Anemia: No Asthma: No Cancer: No Cardiac Disorders: Yes (PALPITATIONS) CVA: No COPD: No CHF: No DVT: No Dementia: No Diabetes: No GI Disorders: Yes (GERD) Disorders: No HTN: Yes Hypercholesterolemia: Yes Liver Disease: No Psychiatric Problems: Yes (Anxiety, Depression) Seizures: No Thyroid Disease: No - Immunization History Immunization Up to Date: Yes - Psycho Social/Smoking Cessation Hx Smoking Status: No Smoking History: Never smoked Have you smoked in the past 12 months: No Number of Cigarettes Smoked Daily: 0 If you are a former smoker, when did you quit?: 15 years ago Hx Alcohol Use: No Drug/Substance Use Hx: No Substance Use Type: None Hx Substance Use Treatment: No *Physical Exam - Vital Signs Last Vital Signs Temp Pulse Resp BP Pulse Ox 98.0 F 100 H 16 132/88 100 12/06/18 18:35 12/06/18 18:35 12/06/18 18:35 12/06/18 18:35 12/06/18 18:35 ED Treatment Course - LABORATORY CBC & Chemistry Diagram: 12/06/18 18:58 12/06/18 18:58 - ADDITIONAL ORDERS Additional order review: 12/06/18 18:58 RBC 5.35 MCV 82.8 MCHC 34.2 RDW 13.1 MPV 8.2 Neutrophils % 64.4 D Lymphocytes % 22.6 D Monocytes % 7.3 Eosinophils % 5.0 H D Basophils % 0.7 D Medical Decision Making - Medical Decision Making 12/06/18 19:57 A/P: 28-year-old male with 1 week of chills weakness and fatigue Physical exam is consistent with upper respiratory viral infection No red flags for an acute exacerbation of arcuate ligament syndrome. Labs per rapid medical evaluation Laboratory Tests 12/06/18 12/06/18 18:58 18:58 WBC 6.4 RBC 5.35 Hgb 15.2 Hct 44.2 MCV 82.8 MCH 28.3 MCHC 34.2 RDW 13.1 Plt Count 192 MPV 8.2 Absolute Neuts (auto) 4.1 Neutrophils % 64.4 D Lymphocytes % 22.6 D Monocytes % 7.3 Eosinophils % 5.0 H D Basophils % 0.7 D Sodium 141 Potassium 4.3 Chloride 106 Carbon Dioxide 29 Anion Gap 6 L BUN 9.8 Creatinine 1.0 Est GFR (CKD-EPI)NonAf 101.26 Random Glucose 126 H Calcium 9.7 Total Bilirubin 0.3 AST 13 L ALT 7 L Alkaline Phosphatase 76 Total Protein 7.7 Albumin 4.4 Normal saline 1 L bolus Reassess 12/07/18 00:14 CT scan is read by Dr. Poe: No evidence of focal angina lesion or hemorrhage is seen. We'll discharge the patient home to follow-up with his primary doctor for continued evaluation. I discussed the physical exam findings, ancillary test results and final diagnoses with the patient. I answered all of the patient's questions. The patient was satisfied with the care received and felt comfortable with the discharge plan and treatment plan. The patient will call their primary care physician within 24 hours to arrange follow-up and will return to the Emergency Department with any new, persistent or worsening symptoms. Portions of this note have been documented using voice recognition software. As a result, errors may occur in the film library clerk process. Effort has been made to correct all grammatical and film library clerk error, but some may have been missed. Discharge - Discharge Information Problems reviewed: Yes Clinical Impression/Diagnosis: Viral illness Condition: Fair Disposition: HOME - Admission No - Follow up/Referral Referrals: Anoop Ponce MD [Primary Care Provider] - - Patient Discharge Instructions Additional Instructions: Rest, drink lots of fluids: Teas, water, soups, Pedialyte Saltwater gargles Steamy showers/seem to face break up mucus Avoid contact with others until symptoms have resolved Lots of handwashing and good hygiene Continue [id number] medications for symptomatic relief Tylenol or Motrin for fever and pain Followup with private physician in one to 2 days as needed Return to emergency department for worsened symptoms, fevers, dehydration - Post Discharge Activity Work/Back to School Note: Back to Work
[2018-12-06 19:39] LABS: ALBUMIN 4.4 g/dl (3.4-5.0); BILIRUBIN,TOTAL 0.3 mg/dL (0.2-1); BLOOD UREA NITROGEN 9.8 mg/dL (7-18); CALCIUM 9.7 mg/dL (8.5-10.1); POTASSIUM 4.3 mmol/L (3.5-5.1); TOT PROT 7.7 g/dl (6.4-8.2)
[2018-12-06] MEDS ORDERED: SODIUM CHLORIDE 1,000 ML IV STA (19:56)
--- NOTE | 2018-12-06 20:01 | PDOC ---
*Physical Exam - Vital Signs Last Vital Signs Temp Pulse Resp BP Pulse Ox 98.0 F 100 H 16 132/88 100 12/06/18 18:35 12/06/18 18:35 12/06/18 18:35 12/06/18 18:35 12/06/18 18:35 ED Treatment Course - LABORATORY CBC & Chemistry Diagram: 12/06/18 18:58 12/06/18 18:58 - ADDITIONAL ORDERS Additional order review: Laboratory Results 12/06/18 18:58 Sodium 141 Potassium 4.3 Chloride 106 Carbon Dioxide 29 Anion Gap 6 L BUN 9.8 Creatinine 1.0 Est GFR (CKD-EPI)AfAm 117.36 Est GFR (CKD-EPI)NonAf 101.26 Random Glucose 126 H Calcium 9.7 Total Bilirubin 0.3 AST 13 L ALT 7 L Alkaline Phosphatase 76 Total Protein 7.7 Albumin 4.4 12/06/18 18:58 RBC 5.35 MCV 82.8 MCHC 34.2 RDW 13.1 MPV 8.2 Neutrophils % 64.4 D Lymphocytes % 22.6 D Monocytes % 7.3 Eosinophils % 5.0 H D Basophils % 0.7 D Medical Decision Making - Medical Decision Making 12/06/18 20:01 Patient seen by the advanced practice provider under my direct supervision. Ancillary testing reviewed as necessary. I agree with plan as outlined by the advanced practice provider. Discharge - Discharge Information Problems reviewed: Yes Clinical Impression/Diagnosis: Viral illness Condition: Fair Disposition: HOME - Follow up/Referral Referrals: Anoop Ponce MD [Primary Care Provider] - - Patient Discharge Instructions Additional Instructions: Rest, drink lots of fluids: Teas, water, soups, Pedialyte Saltwater gargles Steamy showers/seem to face break up mucus Avoid contact with others until symptoms have resolved Lots of handwashing and good hygiene Continue [id number] medications for symptomatic relief Tylenol or Motrin for fever and pain Followup with private physician in one to 2 days as needed Return to emergency department for worsened symptoms, fevers, dehydration - Post Discharge Activity Work/Back to School Note: Back to Work
[2018-12-07 00:47] VITALS: PULSE 78
== END 2018-12-07 00:47 | disposition home or self-care (01) ==
LOC: JER 18:30
PROC: 3E0337Z Introduction of Electrolytic and Water Balance Substance into Peripheral Vein, Percutaneous Approach (ICD-10-PCS; principal; 2018-12-06)
DX: J06.9 Acute upper respiratory infection, unspecified (principal); B97.89 Other viral agents as the cause of diseases classified elsewhere; I10 Essential (primary) hypertension; E78.00 Pure hypercholesterolemia, unspecified; K21.9 Gastro-esophageal reflux disease without esophagitis; F41.8 Other specified anxiety disorders; F32.9 Major depressive disorder, single episode, unspecified; I77.4 Celiac artery compression syndrome; Z88.8 Allergy status to other drugs, medicaments and biological substances
CPT/HCPCS: 36415; 70450-TC; 80053; 85025; 99282-25; J7030

== ENCOUNTER 2018-12-22 09:55 | Emergency (ER) | payer OTHER ==
[2018-12-22 10:05] VITALS: BP 138/83; PULSE 84; TEMP 98.1; BMI 22.6
--- NOTE | 2018-12-22 10:41 | PDOC ---
History of Present Illness - General Chief Complaint: Pain Stated Complaint: STOMACH PAIN Time Seen by Provider: 12/22/18 10:12 History Source: Patient, Old Records Exam Limitations: No Limitations - History of Present Illness Initial Comments: 12/22/18 10:36 28 yo w/ a h/o anxiety (on daily klonopin), GERD, MALS (medial arcuate ligament syndrome) p/w 5 days of diffuse abdominal pain worse in the epigastric area and LLQ/ He describes the pain as constant, burning-squeezing. Sometimes food makes it better but as soon as the food gets digested, pain gets worse. (+ ) nausea, no vomiting, (+)multiple episodes of NB soft stools, no diarrhea, no blood in stools, no black stools. No BM today yet. No loss of appetite, but he cannot tolerate foods due to pain. (+)fever 5 days ago which has since resolved. no URI symptoms, no known sick contacts, no recent travel, no rash. (- )burning/pain on urination but (+)LLQ abdominal pain with urination. He called his GI doctor, Dr. Sen who told him to come to the ER. Pt took his omeprazole this am. Past History - Past Medical History Allergies/Adverse Reactions: Allergies Allergy/AdvReac Type Severity Reaction Status Date / Time famotidine [From Pepcid] Allergy Verified 12/06/18 18:37 Home Medications: Ambulatory Orders Clonazepam 0.5 mg PO HS 02/13/18 Anemia: No Asthma: No Cancer: No Cardiac Disorders: Yes (PALPITATIONS) CVA: No COPD: No CHF: No DVT: No Dementia: No Diabetes: No GI Disorders: Yes (GERD) Disorders: No HTN: Yes Hypercholesterolemia: Yes Liver Disease: No Psychiatric Problems: Yes (Anxiety, Depression) Seizures: No Thyroid Disease: No - Immunization History Immunization Up to Date: Yes - Psycho Social/Smoking Cessation Hx Smoking Status: No Smoking History: Never smoked Have you smoked in the past 12 months: No Number of Cigarettes Smoked Daily: 0 If you are a former smoker, when did you quit?: 15 years ago Information on smoking cessation initiated: No Hx Alcohol Use: No Drug/Substance Use Hx: No Substance Use Type: None Hx Substance Use Treatment: No Review of Systems - Review of Systems Able to Perform ROS?: Yes Constitutional: No: Chills, Fever, Malaise, Night Sweats HEENTM: No: Eye Pain, Recent change in vision, Throat Pain Respiratory: No: Cough, Shortness of Breath Cardiac (ROS): No: Chest Pain, Palpitations, Chest Tightness ABD/GI: Yes: Diarrhea, Nausea, Abdominal cramping. No: Vomiting : No: Dysuria, Hematuria Musculoskeletal: No: Back Pain Integumentary: No: Rash Neurological: No: Headache, Numbness, Dizziness Psychiatric: No: Change in Appetite Endocrine: No: Unexplained Weight Loss *Physical Exam - Vital Signs Last Vital Signs Temp Pulse Resp BP Pulse Ox 98.1 F 84 17 138/83 100 12/22/18 09:59 12/22/18 09:59 12/22/18 09:59 12/22/18 09:59 12/22/18 09:59 - Physical Exam General Appearance: Yes: Nourished. No: Apparent Distress HEENT: positive: MALI, Normal ENT Inspection, Normal Voice. negative: Pale Conjunctivae, Scleral Icterus (R), Scleral Icterus (L) Neck: positive: Supple. negative: Decreased range of motion, Tender midline Respiratory/Chest: positive: Lungs Clear, Normal Breath Sounds. negative: Respiratory Distress, Accessory Muscle Use Cardiovascular: positive: Regular Rhythm, Regular Rate Gastrointestinal/Abdominal: positive: Normal Bowel Sounds, Tender (epigastric and LLQ), Soft, Guarding, Other ((-)dailey's sign, (-)Rosving/psoas sign, no tenderness at McBurney's point). negative: Rebound Musculoskeletal: positive: Normal Inspection, CVA Tenderness (questionnable L sided). negative: Decreased Range of Motion Extremity: positive: Normal Capillary Refill, Normal Inspection, Normal Range of Motion. negative: Tender, Pedal Edema Integumentary: positive: Normal Color, Dry. negative: Jaundice, Rash Neurologic: positive: Fully Oriented, Alert, Normal Mood/Affect ED Treatment Course - LABORATORY CBC & Chemistry Diagram: 12/22/18 10:46 12/22/18 10:46 Medical Decision Making - Medical Decision Making 12/22/18 10:53 28 yo M w/ nausea, abdminal pain, non bloody soft stools and LLQ abdominal pain w/ urination. Will line and lab, give pepcid, IV fluids and reassess 12/22/18 12:15 Lactic acid sent R/O mesenteric ischemia. Pt c/o nausea relgan, benadryl ordered with another liter of fluids. 12/22/18 14:28 Pt still with pain, will do a CTA with contrast 12/22/18 16:34 Change of shift, care of patient signed over to [employer] Jeff who will reassess patient, follow up CT results and decide on dispo plan. 28 yo M W/ MALS p/w abdominal pain, vomiting. FOllow up CTA. Pt ate some chicken noodle soup, says that he feels much better Discharge - Discharge Information Problems reviewed: Yes Clinical Impression/Diagnosis: Abdominal pain Qualifiers: Abdominal location: epigastric Qualified Code(s): R10.13 - Epigastric pain - Follow up/Referral Referrals: Anoop Ponce MD [Primary Care Provider] - - Patient Discharge Instructions - Post Discharge Activity
[2018-12-22] MEDS ORDERED: ONDANSETRON 4 MG/2 ML VIAL IVPUSH ONE (10:54)
[2018-12-22] MEDS ORDERED: SODIUM CHLORIDE 1,000 ML IV STA ×2 (10:54→12:16)
[2018-12-22] MEDS ORDERED: ONDANSETRON 4 MG/2 ML VIAL ONE (10:59)
[2018-12-22 11:05] LABS: BASO % 0.5 % (0-2.0); EOS % 4.6 % (0-4.5); HEMATOCRIT 48.1 % (35.4-49); HEMOGLOBIN 16.2 GM/dL (11.7-16.9); LYMPH % 22.1 % (8-40); MCH 28.1 pg (25.7-33.7); MCHC 33.6 g/dl (32.0-35.9); MEAN CELL VOLUME 83.5 fl (80-96); MEAN PLT VOLUME 8.5 fl (7.5-11.1); MONO % 7.7 % (3.8-10.2); NEUT % 65.1 % (42.8-82.8); PLATELET COUNT 230 K/MM3 (134-434); RBC 5.76 M/mm3 (4.00-5.60); RDW 13.2 % (11.9-15.9); WHITE BLOOD COUNT 6.1 K/mm3 (4.0-10.0)
[2018-12-22 11:16] LABS: PH,URINE 7.5 (5.0-8.0); URINE APPEARANCE CLEAR; URINE BILIRUBIN NEGATIVE (NEGATIVE); URINE COLOR YELLOW; URINE GLUCOSE (UA) NEGATIVE (NEGATIVE); URINE KETONE NEGATIVE (NEGATIVE); URINE LEUK ESTERASE NEGATIVE (NEGATIVE); URINE NITRITE NEGATIVE (NEGATIVE); URINE PROTEIN NEGATIVE (NEGATIVE); URINE UROBILINOGEN 0.2 mg/dL (0.2-1.0)
[2018-12-22 11:24] LABS: MAGNESIUM 2.3 mg/dL (1.8-2.4)
[2018-12-22 11:25] LABS: ALBUMIN 4.7 g/dl (3.4-5.0); BILIRUBIN,TOTAL 0.6 mg/dL (0.2-1); BLOOD UREA NITROGEN 13.1 mg/dL (7-18); POTASSIUM 4.2 mmol/L (3.5-5.1); TOT PROT 8.3 g/dl (6.4-8.2)
[2018-12-22] MEDS ORDERED: METOCLOPRAMIDE HCL INJECTION 10 MG/2 ML VIAL IVPUSH ONE (12:15)
[2018-12-22] MEDS ORDERED: METOCLOPRAMIDE HCL INJECTION 10 MG/2 ML VIAL ONE (12:37)
--- NOTE | 2018-12-22 16:47 | PDOC ---
*Physical Exam - Vital Signs Last Vital Signs Temp Pulse Resp BP Pulse Ox 98.1 F 84 17 138/83 100 12/22/18 09:59 12/22/18 09:59 12/22/18 09:59 12/22/18 09:59 12/22/18 09:59 - Physical Exam General Appearance: Yes: Appropriately Dressed. No: Apparent Distress Gastrointestinal/Abdominal: positive: Normal Bowel Sounds, Soft. negative: Tender Musculoskeletal: positive: Normal Inspection. negative: CVA Tenderness Integumentary: positive: Normal Color, Dry, Warm ED Treatment Course - LABORATORY CBC & Chemistry Diagram: 12/22/18 10:46 12/22/18 10:46 - ADDITIONAL ORDERS Additional order review: Laboratory Results 12/22/18 12/22/18 12/22/18 13:43 10:46 10:46 Sodium Potassium Chloride Carbon Dioxide Anion Gap BUN Creatinine Est GFR (CKD-EPI)AfAm Est GFR (CKD-EPI)NonAf Random Glucose Lactic Acid 0.8 Calcium Magnesium 2.3 Total Bilirubin AST ALT Alkaline Phosphatase Total Protein Albumin Lipase 114 Urine Color Yellow Urine Appearance Clear Urine pH 7.5 D Ur Specific [place] 1.008 L Urine Protein Negative Urine Glucose (UA) Negative Urine Ketones Negative Urine Blood Negative Urine Nitrite Negative Urine Bilirubin Negative Urine Urobilinogen 0.2 Ur Leukocyte Esterase Negative 12/22/18 10:46 Sodium 139 Potassium 4.2 Chloride 102 Carbon Dioxide 31 Anion Gap 6 L BUN 13.1 Creatinine 1.0 Est GFR (CKD-EPI)AfAm 117.36 Est GFR (CKD-EPI)NonAf 101.26 Random Glucose 85 Lactic Acid Calcium 10.0 Magnesium Total Bilirubin 0.6 AST 11 L ALT 6 L Alkaline Phosphatase 63 Total Protein 8.3 H Albumin 4.7 Lipase Urine Color Urine Appearance Urine pH Ur Specific [place] Urine Protein Urine Glucose (UA) Urine Ketones Urine Blood Urine Nitrite Urine Bilirubin Urine Urobilinogen Ur Leukocyte Esterase 12/22/18 10:46 RBC 5.76 H MCV 83.5 MCHC 33.6 RDW 13.2 MPV 8.5 Neutrophils % 65.1 Lymphocytes % 22.1 Monocytes % 7.7 Eosinophils % 4.6 H Basophils % 0.5 - Medications Given in the ED: ED Medications Discontinued Medications Generic Name Dose Route Start Last Admin Trade Name Freq PRN Reason Stop Dose Admin Diphenhydramine HCl 25 mg 12/22/18 12:15 10/11/19 12:53 Benadryl Injection - IVPUSH 12/22/18 12:16 25 mg ONCE ONE Administration Sodium Chloride 1,000 mls @ 1,000 mls/hr 12/22/18 10:54 12/22/18 11:09 Normal Saline - IV 12/22/18 11:53 1,000 mls/hr ASDIR STA Administration Sodium Chloride 1,000 mls @ 1,000 mls/hr 12/22/18 12:16 12/22/18 12:53 Normal Saline - IV 12/22/18 13:15 1,000 mls/hr ASDIR STA Administration Metoclopramide HCl 10 mg 12/22/18 12:15 12/22/18 12:53 Reglan Injection - IVPUSH 12/22/18 12:16 10 mg ONCE ONE Administration Ondansetron HCl 4 mg 12/22/18 10:54 12/22/18 11:10 Zofran Injection IVPUSH 12/22/18 10:55 4 mg ONCE ONE Administration ED Progress Note - Progress Note Progress Note: 12/22/18 16:45 Received signout from SVETA Perry. Briefly, this is a 28-year-old male with past medical history of Median arcuate ligament syndrome presents to the emergency department with abdominal pain. Laboratory testing is unremarkable. Patient is pending CTA of the abdomen for continued evaluation. Medical Decision Making - Medical Decision Making 12/22/18 17:02 CTA of the abdomen and pelvis as read by Dr. Dawson: Approximate 50 to 70% smooth luminal narrowing is noted of the proximal aspect of the celiac trunk secondary to arcuate ligament indentation. This appearance and itself does not confirm a diagnosis of median arcuate ligament syndrome. As suggested in the MRA/MRI report correlation with outpatient arterial Doppler ultrasound of the celiac trunk and inspiration with exploration is suggested. In comparison to prior CT studies of 09/30/2017, 05/14/2017, and 06/03/2014 note is again made of minimal to mild subtle soft tissue stranding within the fat planes adjacent to the celiac and superior mesenteric arteries. Stable slight mesenteric nodularity is seen as on prior studies. Note is again made of several punctate bilateral nonobstructing renal calculi. Stable 1 cm left adrenal nodule very likely representing an adenoma. Small bilateral inguinal hernias containing fat only. Reevaluation reveals benign abdomen. Results of the CAT scan have been discussed with the patient who understands he needs reevaluation of adrenal nodule. I discussed the physical exam findings, ancillary test results and final diagnoses with the patient. I answered all of the patient's questions. The patient was satisfied with the care received and felt comfortable with the discharge plan and treatment plan. The patient will call their primary care physician within 24 hours to arrange follow-up and will return to the Emergency Department with any new, persistent or worsening symptoms. Discharge - Discharge Information Problems reviewed: Yes Clinical Impression/Diagnosis: Abdominal pain Qualifiers: Abdominal location: epigastric Qualified Code(s): R10.13 - Epigastric pain Condition: Fair Disposition: HOME - Admission No - Additional Discharge Information Prescriptions: Ondansetron [Zofran -] 4 mg PO TID #21 tablet - Follow up/Referral Referrals: Anoop Ponce MD [Primary Care Provider] - - Patient Discharge Instructions Additional Instructions: You have a 1 cm stable nodule on your left adrenal gland. This is a CAT scan finding that needs follow-up with your primary doctor. All this is likely a benign finding this could be much worse including cancer. You must follow-up for reevaluation. Your emergency department visit is not complete until you follow-up with your primary doctor. Return to the emergency department for any new or worsening symptoms. - Post Discharge Activity
== END 2018-12-22 17:20 | disposition home or self-care (01) ==
LOC: JER 09:55
PROC: 3E0337Z Introduction of Electrolytic and Water Balance Substance into Peripheral Vein, Percutaneous Approach (ICD-10-PCS; principal; 2018-12-22)
PROC: 3E033GC Introduction of Other Therapeutic Substance into Peripheral Vein, Percutaneous Approach (ICD-10-PCS; 2018-12-22)
PROC: 3E033GC Introduction of Other Therapeutic Substance into Peripheral Vein, Percutaneous Approach (ICD-10-PCS; 2018-12-22)
PROC: 3E033GC Introduction of Other Therapeutic Substance into Peripheral Vein, Percutaneous Approach (ICD-10-PCS; 2018-12-22)
DX: R10.13 Epigastric pain (principal); I10 Essential (primary) hypertension; E78.00 Pure hypercholesterolemia, unspecified; K21.9 Gastro-esophageal reflux disease without esophagitis; F41.8 Other specified anxiety disorders; F32.9 Major depressive disorder, single episode, unspecified; I77.4 Celiac artery compression syndrome; Z88.8 Allergy status to other drugs, medicaments and biological substances
CPT/HCPCS: 36415; 74174-TC; 80053; 81003; 83605; 83690; 83735; 85025; 87086; 96361; 96374; 96375; 99283-25; J7030

== ENCOUNTER 2019-03-25 22:46 | Emergency (ER) | payer OTHER ==
[2019-03-25 23:06] VITALS: BP 137/74; PULSE 88; TEMP 98.5; BMI 20.9
[2019-03-25] MEDS ORDERED: clonazePAM 0.5 MG TABLET PO ONE (23:46)
[2019-03-25] MEDS ORDERED: clonazePAM 0.5 MG TABLET ONE (23:49)
--- NOTE | 2019-03-25 23:52 | PDOC ---
History of Present Illness - General Chief Complaint: Pain Stated Complaint: LT ARM PAIN Time Seen by Provider: 03/25/19 23:32 History Source: Patient Exam Limitations: No Limitations - History of Present Illness Initial Comments: 03/25/19 23:47 Patient is a 28-year-old male who presents to the ED complaining of spasms in his upper back on the left and in his left arm. He also states that he ran out of his Klonopin and he takes a nightly dose of 0.5 mg. He states he ran out last night. He admits that his therapist told him he should come to the ED for his medication as the therapist is out of town. The patient also admits that he is currently in a work comp lawsuit for bulging disks in his neck. This is being followed by an orthopedic surgeon. The patient states he has had some radiculopathy type symptoms in his neck radiating down his left arm which is already being evaluated. He denies any shortness of breath or chest pain. The patient does admit to having a history of anxiety. Past History - Past Medical History Allergies/Adverse Reactions: Allergies Allergy/AdvReac Type Severity Reaction Status Date / Time famotidine [From Pepcid] Allergy Verified 12/06/18 18:37 Home Medications: Ambulatory Orders Clonazepam 0.5 mg PO HS 02/13/18 Ondansetron [Zofran -] 4 mg PO TID #21 tablet 12/22/18 Anemia: No Asthma: No Cancer: No Cardiac Disorders: Yes (PALPITATIONS) CVA: No COPD: No CHF: No DVT: No Dementia: No Diabetes: No GI Disorders: Yes (GERD) Disorders: No HTN: Yes Hypercholesterolemia: Yes Liver Disease: No Psychiatric Problems: Yes (Anxiety, Depression) Seizures: No Thyroid Disease: No - Immunization History Immunization Up to Date: Yes - Psycho Social/Smoking Cessation Hx Smoking Status: No Smoking History: Never smoked Have you smoked in the past 12 months: No Number of Cigarettes Smoked Daily: 0 If you are a former smoker, when did you quit?: 15 years ago Hx Alcohol Use: No Drug/Substance Use Hx: No Substance Use Type: None Hx Substance Use Treatment: No Review of Systems - Review of Systems Comments:: 03/25/19 23:49 - Review of Systems Able to Perform ROS?: Yes Constitutional: No: Fever, Chills, Loss of Appetite, Night Sweats, Weakness HEENTM: No: Eye Pain, Vision changes, Ear Pain, Throat Pain, Throat Swelling, Mouth Pain, Difficulty Swallowing Respiratory: No: Cough, Shortness of Breath, Wheezing, Sputum Production Cardiac (ROS): No: Chest Pain, Chest Tightness, Palpitations, Irregular Heart Beat, Edema ABD/GI: No: Nausea, Vomiting, Abdominal Pain, Diarrhea : No Dysuria, No Hematuria, No Frequency, No Urgency, No Vaginal Discharge/ Pain, No Penile Discharge/Pain Musculoskeletal: No: Joint Pain, Muscle Weakness, Neck Pain; + muscle pain L upper back Integumentary: No: Lesions, Rash Neurological: No: Headache, Numbness, Tingling, Weakness, Speech Difficulties *Physical Exam - Vital Signs Last Vital Signs Temp Pulse Resp BP Pulse Ox 98.5 F 88 19 137/74 100 03/25/19 23:01 03/25/19 23:01 03/25/19 23:01 03/25/19 23:01 03/25/19 23:01 - Physical Exam 03/25/19 23:49 - Physical Exam General Appearance: Nourished, Appropriately Dressed, No Distress Neck: Supple, No Lymphadenopathy (R), No Lymphadenopathy (L), No Rigidity, No Decreased range of motion Respiratory/Chest: Lungs Clear, Normal Breath Sounds. No Respiratory Distress, No Accessory Muscle Use Cardiovascular: Regular Rhythm, Regular Rate, S1, S2 Musculoskeletal: Normal Inspection. No Decreased Range of Motion; Tenderness to palpation with palpable muscle spasms over the left trapezius muscle. Full range of motion of the neck. Full range of motion of the left shoulder. Muscle tenderness along the left deltoid. No decreased range of motion of the left upper extremity. Extremity: Normal Capillary Refill, Normal Inspection Integumentary: Normal Color, Dry. No Rash Neurologic: box press operator II-XII NML intact, Fully Oriented, Alert, Normal Mood/Affect, Normal Response Medical Decision Making - Medical Decision Making 03/25/19 23:50 Patient is a 28-year-old male with a left trapezius muscle spasm. He is currently being treated for neck pain with radiculopathy for a Worker's Compensation case. I have made the patient aware that we can give him 1 dose of his Klonopin in the ED but he must follow-up with his therapist tomorrow. He understands and agrees with this treatment and plan and the patient is stable for discharge. Discharge - Discharge Information Problems reviewed: Yes Clinical Impression/Diagnosis: Trapezius muscle spasm Condition: Stable Disposition: HOME - Follow up/Referral Referrals: Anoop Ponce MD [Primary Care Provider] - - Patient Discharge Instructions Patient Printed Discharge Instructions: DI for Back Spasm Additional Instructions: Apply ice and heat to your back to help with the muscle spasm. Take ibuprofen as needed for the muscle spasm. You must call your therapist or whoever is covering tomorrow for a refill on your Klonopin medications. Return to the emergency department for any worsening symptoms. - Post Discharge Activity Work/Back to School Note: Back to Work
== END 2019-03-25 23:56 | disposition home or self-care (01) ==
LOC: JER 22:46
DX: M62.838 Other muscle spasm (principal); Z86.69 Personal history of other diseases of the nervous system and sense organs
CPT/HCPCS: 99282-25

== ENCOUNTER 2020-02-22 12:36 | Emergency (ER) | payer OTHER ==
[2020-02-22 12:48] VITALS: BMI 22.6
[2020-02-22] MEDS ORDERED: SODIUM CHLORIDE 0.9% 500 ML INFUS.BAG IV ONE (13:19)
[2020-02-22 13:50] LABS: BASO % 0.4 % (0-2.0); EOS % 0.8 % (0-4.5); HEMATOCRIT 47.5 % (35.4-49); HEMOGLOBIN 15.7 GM/dL (11.7-16.9); LYMPH % 6.1 % (8-40); MCH 27.4 pg (25.7-33.7); MEAN CELL VOLUME 83.1 fl (80-96); MEAN PLT VOLUME 7.8 fl (7.5-11.1); MONO % 5.4 % (3.8-10.2); NEUT % 87.3 % (42.8-82.8); PLATELET COUNT 201 K/MM3 (134-434); RBC 5.71 M/mm3 (4.00-5.60); RDW 13.1 % (11.9-15.9); WHITE BLOOD COUNT 14.6 K/mm3 (4.0-10.0)
[2020-02-22 14:15] LABS: CHLORIDE 102 mmol/L (98-107); POTASSIUM 4.2 mmol/L (3.5-5.1); SODIUM 138 mmol/L (136-145)
[2020-02-22 14:18] LABS: CALCIUM 9.8 mg/dL (8.5-10.1)
[2020-02-22 14:19] LABS: ALBUMIN 4.5 g/dl (3.4-5.0); ANION GAP 5 MMOL/L (8-16); BLOOD UREA NITROGEN 14.8 mg/dL (7-18); CO2 31 mmol/L (21-32); GLUCOSE,RANDOM 88 mg/dL (74-106); LIPASE 105 U/L (73-393)
[2020-02-22 14:22] LABS: CHOLESTEROL 149 mg/dL (50-200); CREATININE 1.1 mg/dL (0.55-1.3); SGOT/AST 14 U/L (15-37); SGPT/ALT < 6 U/L (13-61); TRIGLYCERIDES 98 mg/dL (0-150)
[2020-02-22 14:23] LABS: BILIRUBIN,TOTAL 0.5 mg/dL (0.2-1); LDL CHOLESTEROL (ONLY SJRH) 84 mg/dL (5-100)
[2020-02-22 14:24] LABS: ALK PHOS 62 U/L (45-117); HDL CHOLESTEROL 55 mg/dL (40-60)
[2020-02-22 16:01] VITALS: BP 108/77; PULSE 76; TEMP 98.1
== END 2020-02-22 16:00 | disposition home or self-care (01) ==
LOC: JER 12:36
DX: R00.2 Palpitations (principal)
CPT/HCPCS: 36415; 71046-TC-FY; 80053; 80061; 82550; 83690; 83721; 84443; 84484; 85025; 87804; 93005; 93010; 99285-25; C9803; U0003

== ENCOUNTER 2020-03-28 12:22 | Emergency (ER) | payer OTHER ==
[2020-03-28 12:33] VITALS: BP 127/76; PULSE 94; TEMP 97.6; BMI 22.2
== END 2020-03-28 13:35 | disposition home or self-care (01) ==
LOC: JER 12:22
DX: R05 Cough (principal)
CPT/HCPCS: 71046-TC-FY; 87804; 99284-25; C9803; U0003

== ENCOUNTER 2020-07-27 20:26 | Emergency (ER) | payer OTHER ==
[2020-07-27 20:35] VITALS: BP 130/82; PULSE 82; TEMP 98.3; BMI 25.8
[2020-07-27] MEDS ORDERED: ACETAMINOPHEN 325 MG TABLET (FP) PO ONE (20:57)
[2020-07-27] MEDS ORDERED: ACETAMINOPHEN 325 MG TABLET (FP) ONE (21:15)
[2020-07-27] MEDS ORDERED: DEXAMETHASONE 4 MG TABLET (FP) PO ONE (22:02)
[2020-07-27] MEDS ORDERED: DEXAMETHASONE 4 MG TABLET (FP) ONE (22:11)
== END 2020-07-27 22:24 | disposition home or self-care (01) ==
LOC: JER 20:26
DX: R07.0 Pain in throat (principal); M79.10 Myalgia, unspecified site; Z11.52 Encounter for screening for COVID-19
CPT/HCPCS: 87880; 99284-25; C9803; U0003; U0005

== ENCOUNTER 2020-09-20 02:42 | Emergency (ER) | payer OTHER ==
[2020-09-20 03:01] VITALS: BP 130/84; PULSE 87; TEMP 98.9; BMI 25.8
[2020-09-20] MEDS ORDERED: METHOCARBAMOL 500 MG TABLET PO ONE (04:34)
[2020-09-20] MEDS ORDERED: METHOCARBAMOL 500 MG TABLET ONE (04:44)
== END 2020-09-20 05:32 | disposition home or self-care (01) ==
LOC: JER 02:42
DX: S30.0XXA Contusion of lower back and pelvis, initial encounter (principal)
CPT/HCPCS: 71046-TC-FY; 99284-25

== ENCOUNTER 2020-11-29 21:51 | Emergency (ER) | payer OTHER ==
[2020-11-29 22:07] VITALS: BMI 26.3
[2020-11-29] MEDS ORDERED: ONDANSETRON 4 MG/2 ML VIAL IVPUSH ONE (22:36)
[2020-11-29] MEDS ORDERED: SODIUM CHLORIDE 0.9% 500 ML INFUS.BAG IV ONE (22:36)
[2020-11-29] MEDS ORDERED: MECLIZINE HCL 12.5 MG TABLET PO ONE (22:36)
[2020-11-29] MEDS ORDERED: MAG HYDROX/AL HYDROX/SIMETH -MYLANTA- ORAL SUSPENSION PO ONE (22:36)
[2020-11-29] MEDS ORDERED: MECLIZINE HCL 12.5 MG TABLET ONE (23:32)
[2020-11-29] MEDS ORDERED: ONDANSETRON 4 MG/2 ML VIAL ONE (23:32)
[2020-11-29] MEDS ORDERED: MAG HYDROX/AL HYDROX/SIMETH 30 ML UNIT-DOSE CUP ONE (23:33)
[2020-11-30 00:06] LABS: BASO % 0.6 % (0-2.0); EOS % 2.2 % (0-4.5); HEMATOCRIT 41.5 % (35.4-49); HEMOGLOBIN 14.4 GM/dL (11.7-16.9); LYMPH % 9.6 % (8-40); MCH 28.3 pg (25.7-33.7); MCHC 34.8 g/dl (32.0-35.9); MEAN CELL VOLUME 81.2 fl (80-96); MEAN PLT VOLUME 7.7 fl (7.5-11.1); MONO % 6.8 % (3.8-10.2); NEUT % 80.8 % (42.8-82.8); PLATELET COUNT 170 10^3/uL (134-434); RBC 5.11 M/mm3 (4.00-5.60); RDW 13.3 % (11.9-15.9); WHITE BLOOD COUNT 8.7 K/mm3 (4.0-10.0)
[2020-11-30 00:25] LABS: CHLORIDE 107 mmol/L (98-107); SODIUM 142 mmol/L (136-145)
[2020-11-30 00:27] LABS: CALCIUM 8.8 mg/dL (8.5-10.1)
[2020-11-30 00:28] LABS: ALBUMIN 4.2 g/dl (3.4-5.0); ANION GAP 5 MMOL/L (8-16); BLOOD UREA NITROGEN 11.4 mg/dL (7-18); CO2 30 mmol/L (21-32); GLUCOSE,RANDOM 88 mg/dL (74-106); LIPASE 61 U/L (73-393)
[2020-11-30 00:31] LABS: SGOT/AST 21 U/L (15-37); SGPT/ALT 7 U/L (13-61)
[2020-11-30 00:32] LABS: BILIRUBIN,TOTAL 0.7 mg/dL (0.2-1)
[2020-11-30 00:33] LABS: ALK PHOS 60 U/L (45-117); TOT PROT 7.8 g/dl (6.4-8.2)
[2020-11-30 01:50] VITALS: BP 118/80; PULSE 68; TEMP 98.2
== END 2020-11-30 01:53 | disposition home or self-care (01) ==
LOC: JER 21:51
PROC: 3E033NZ Introduction of Analgesics, Hypnotics, Sedatives into Peripheral Vein, Percutaneous Approach (ICD-10-PCS; principal; 2020-11-29)
DX: J00 Acute nasopharyngitis [common cold] (principal)
CPT/HCPCS: 36415; 71045-TC-FY; 80053; 82550; 83690; 84484; 85025; 87804; 87880; 93005; 93010; 99284-25; C9803; U0003; U0005

== ENCOUNTER 2021-02-26 18:14 | Emergency (ER) | payer OTHER ==
[2021-02-26 18:29] VITALS: BP 145/95; PULSE 82; TEMP 98.4; BMI 29.0
[2021-02-26] MEDS ORDERED: ACETAMINOPHEN 1000 MG/100 ML VIAL IVPB ONE (18:34)
[2021-02-26] MEDS ORDERED: ONDANSETRON 4 MG/2 ML VIAL IVPUSH ONE (18:34)
[2021-02-26] MEDS ORDERED: PANTOPRAZOLE SODIUM 40 MG VIAL IVPB ONE (18:34)
[2021-02-26] MEDS ORDERED: SODIUM CHLORIDE 1,000 ML IV STA (18:34)
[2021-02-26] MEDS ORDERED: MAG HYDROX/AL HYDROX/SIMETH 30 ML UNIT-DOSE CUP PO ONE (18:47)
[2021-02-26] MEDS ORDERED: MAG HYDROX/AL HYDROX/SIMETH 30 ML UNIT-DOSE CUP ONE (19:19)
[2021-02-26] MEDS ORDERED: PANTOPRAZOLE SODIUM 40 MG/100 ML BAG IVPB ONE (19:19)
[2021-02-26] MEDS ORDERED: ACETAMINOPHEN INJECTION 100 ML IVPB ONE (19:19)
[2021-02-26] MEDS ORDERED: ONDANSETRON 4 MG/2 ML VIAL ONE (19:20)
[2021-02-26 19:46] LABS: BASO % 0.3 % (0-2.0); EOS % 3.8 % (0-4.5); HEMATOCRIT 47.2 % (35.4-49); HEMOGLOBIN 16.2 GM/dL (11.7-16.9); LYMPH % 20.3 % (8-40); MCH 28.4 pg (25.7-33.7); MCHC 34.3 g/dl (32.0-35.9); MEAN CELL VOLUME 82.9 fl (80-96); MEAN PLT VOLUME 8.3 fl (7.5-11.1); MONO % 6.7 % (3.8-10.2); NEUT % 68.9 % (42.8-82.8); PLATELET COUNT 210 10^3/uL (134-434); RBC 5.69 M/mm3 (4.00-5.60); RDW 13.2 % (11.9-15.9); WHITE BLOOD COUNT 6.5 K/mm3 (4.0-10.0)
[2021-02-26 19:52] LABS: INR 1.03 (0.83-1.09); PROTHROMBIN TIME (PATIENT) 12.1 SEC (9.7-13.0)
[2021-02-26 20:13] LABS: CHLORIDE 104 mmol/L (98-107); SODIUM 141 mmol/L (136-145)
[2021-02-26 20:15] LABS: BLOOD UREA NITROGEN 10.3 mg/dL (7-18); CALCIUM 9.9 mg/dL (8.5-10.1); LIPASE 103 U/L (73-393)
[2021-02-26 20:16] LABS: ALBUMIN 4.8 g/dl (3.4-5.0); ANION GAP 6 MMOL/L (8-16); CO2 32 mmol/L (21-32); GLUCOSE,RANDOM 96 mg/dL (74-106); MAGNESIUM 2.3 mg/dL (1.8-2.4)
[2021-02-26 20:18] LABS: SGOT/AST 13 U/L (15-37); SGPT/ALT < 6 U/L (13-61)
[2021-02-26 20:20] LABS: BILIRUBIN,TOTAL 0.5 mg/dL (0.2-1); TOT PROT 8.5 g/dl (6.4-8.2)
[2021-02-26 20:21] LABS: ALK PHOS 71 U/L (45-117)
== END 2021-02-26 22:00 | disposition home or self-care (01) ==
LOC: JER 18:14
PROC: 3E0333Z Introduction of Anti-inflammatory into Peripheral Vein, Percutaneous Approach (ICD-10-PCS; principal; 2021-02-26)
PROC: 3E033GC Introduction of Other Therapeutic Substance into Peripheral Vein, Percutaneous Approach (ICD-10-PCS; 2021-02-26)
PROC: 3E033GC Introduction of Other Therapeutic Substance into Peripheral Vein, Percutaneous Approach (ICD-10-PCS; 2021-02-26)
PROC: 3E0337Z Introduction of Electrolytic and Water Balance Substance into Peripheral Vein, Percutaneous Approach (ICD-10-PCS; 2021-02-26)
DX: R10.12 Left upper quadrant pain (principal)
CPT/HCPCS: 36415; 74177-TC; 80053; 83690; 83735; 85025; 85610; 85730; 99285-25; J0131; Q9967

== ENCOUNTER 2021-03-14 04:51 | Emergency (ER) | payer OTHER ==
[2021-03-14 05:14] VITALS: BP 132/79; PULSE 110; TEMP 101.5; BMI 24.5
[2021-03-14] MEDS ORDERED: ALBUTEROL SO4 HFA INHALER IH ONE ×2 (07:31→07:37)
[2021-03-14] MEDS ORDERED: IBUPROFEN 600 MG TABLET (FP) PO ONE ×2 (07:31→07:38)
[2021-03-14] MEDS ORDERED: ONDANSETRON *ODT* 4 MG TABLET SL ONE (07:31)
[2021-03-14] MEDS ORDERED: ACETAMINOPHEN 325 MG TABLET (FP) PO ONE (07:31)
[2021-03-14] MEDS ORDERED: ACETAMINOPHEN 325 MG TABLET (FP) ONE (07:37)
[2021-03-14] MEDS ORDERED: ONDANSETRON *ODT* 4 MG TABLET ONE (07:38)
[2021-03-14] MEDS ORDERED: METOCLOPRAMIDE HCL INJECTION 10 MG/2 ML VIAL IVPB ONE (08:37)
[2021-03-14] MEDS ORDERED: SODIUM CHLORIDE 1,000 ML IV STA (08:37)
[2021-03-14] MEDS ORDERED: METOCLOPRAMIDE HCL INJECTION 10 MG/2 ML VIAL ONE (09:21)
[2021-03-15 07:06] LABS: SARS-CoV-2 NAA Detected (Not Detected)
== END 2021-03-14 12:26 | disposition home or self-care (01) ==
LOC: JER 04:51
PROC: 3E033GC Introduction of Other Therapeutic Substance into Peripheral Vein, Percutaneous Approach (ICD-10-PCS; principal; 2021-03-14)
PROC: 3E0337Z Introduction of Electrolytic and Water Balance Substance into Peripheral Vein, Percutaneous Approach (ICD-10-PCS; 2021-03-14)
DX: U07.1 COVID-19 (principal)
CPT/HCPCS: 71046-TC-FY; 87070; 87804; 93005; 93010; 99285-25; C9803; Q0162; U0003; U0005

== ENCOUNTER 2021-04-06 04:21 | Day surgery (SDC) | payer OTHER ==
[2021-04-02 17:41] VITALS: BMI 24.3
[2021-04-06] MEDS ORDERED: oxyCODONE HCL 5 MG TABLET PO PRN ×2 (12:33)
[2021-04-06] MEDS ORDERED: ACETAMINOPHEN 325 MG TABLET (FP) PO PRN (12:33)
[2021-04-06] MEDS ORDERED: GLYCOPYRROLATE 0.2 MG/1 ML VIAL ONE (12:45)
[2021-04-06] MEDS ORDERED: LACTATED RINGERS SOLUTION 1,000 ML IV SCH (12:45)
[2021-04-06] MEDS ORDERED: MIDAZOLAM HCL 2 MG/2 ML SINGLE DOSE VIAL ONE ×2 (12:46→13:01)
[2021-04-06] MEDS ORDERED: KETAMINE HCL 200 MG/20 ML VIAL ONE (13:05)
[2021-04-06] MEDS ORDERED: ACETAMINOPHEN INJECTION 100 ML IVPB ONE (14:36)
[2021-04-06] MEDS: ONDANSETRON 4 MG/2 ML VIAL IVPUSH PRN ×2 (14:39→16:10)
[2021-04-06] MEDS ORDERED: ONDANSETRON 4 MG/2 ML VIAL ONE ×2 (14:39→16:11)
[2021-04-06] MEDS ORDERED: ACETAMINOPHEN 1000 MG/100 ML BAG IVPB ONE (14:40)
[2021-04-06 16:28] VITALS: BP 110/77; PULSE 74; TEMP 97.5
[2021-04-06] MEDS ORDERED: ACETAMINOPHEN 325 MG TABLET (FP) ONE (17:33)
== END 2021-04-06 18:35 | disposition home or self-care (01) ==
LOC: JASU-SURG 04:21
PROVIDERS: ATTEND Urology
PROC: 0TF4XZZ Fragmentation in Left Kidney Pelvis, External Approach (ICD-10-PCS; principal; 2021-04-06 11:30)
DX: N20.0 Calculus of kidney (principal)
CPT/HCPCS: 93005; 93010; 94760; J0131

== ENCOUNTER 2022-03-28 22:36 | Emergency (ER) | payer OTHER ==
[2022-03-28 22:46] VITALS: BP 117/73; PULSE 86; RESP 18; TEMP 98; BMI 20.9
[2022-03-28] MEDS ORDERED: IBUPROFEN 600 MG TABLET (FP) PO ONE (23:58)
[2022-03-29] MEDS ORDERED: CYCLOBENZAPRINE HCL 5 MG TABLET ONE (00:23)
[2022-03-29] MEDS ORDERED: IBUPROFEN 600 MG TABLET (FP) PO ONE (00:23)
[2022-03-29] MEDS ORDERED: CYCLOBENZAPRINE HCL 5 MG TABLET PO SCH (10:00)
== END 2022-03-29 01:28 | disposition home or self-care (01) ==
LOC: JER 22:36
DX: M62.838 Other muscle spasm (principal)
CPT/HCPCS: 73552-TC-LT-FY; 99283-25

== ENCOUNTER 2022-05-06 22:25 | Emergency (ER) | payer OTHER ==
[2022-05-06 22:31] VITALS: TEMP 97.7; BMI 22.1
[2022-05-06] MEDS ORDERED: ACETAMINOPHEN 1000 MG/100 ML BAG IVPB ONE (23:23)
[2022-05-07] MEDS ORDERED: ACETAMINOPHEN INJECTION 100 ML IVPB ONE (00:05)
[2022-05-07 01:06] LABS: EOS % 2.4 % (0-4.5); HEMOGLOBIN 14.5 GM/dL (11.7-16.9); LYMPH % 24.4 % (8-40); MCHC 34.4 g/dl (32.0-35.9); MEAN CELL VOLUME 84.3 fl (80-96); MEAN PLT VOLUME 8.1 fl (7.5-11.1); MONO % 7.8 % (3.8-10.2); NEUT % 64.4 % (42.8-82.8); PLATELET COUNT 189 10^3/uL (134-434); RBC 4.98 M/mm3 (4.00-5.60); RDW 13.3 % (11.9-15.9); WHITE BLOOD COUNT 6.8 K/mm3 (4.0-10.0)
[2022-05-07 01:27] LABS: CHLORIDE 106 mmol/L (98-107); SODIUM 138 mmol/L (136-145)
[2022-05-07 01:30] LABS: ANION GAP 3 MMOL/L (8-16); BLOOD UREA NITROGEN 7.6 mg/dL (7-18); CALCIUM 8.9 mg/dL (8.5-10.1); CO2 30 mmol/L (21-32)
[2022-05-07 01:31] LABS: GLUCOSE,RANDOM 86 mg/dL (74-106); MAGNESIUM 2.1 mg/dL (1.8-2.4)
[2022-05-07 01:33] LABS: SGPT/ALT 7 U/L (13-61)
[2022-05-07 01:34] LABS: CREATININE 0.9 mg/dL (0.55-1.3)
[2022-05-07 01:35] LABS: BILIRUBIN,TOTAL 0.5 mg/dL (0.2-1)
[2022-05-07 01:37] LABS: ALK PHOS 51 U/L (45-117)
[2022-05-07 02:07] VITALS: BP 132/95; PULSE 69; RESP 18
[2022-05-07 02:14] LABS: SGOT/AST 15 U/L (15-37)
[2022-05-07 02:20] LABS: ERYTHROCYTE SEDIMENTATION RATE 2 mm/hr (0-10)
== END 2022-05-07 02:12 | disposition home or self-care (01) ==
LOC: JER 22:25
PROC: 3E033GC Introduction of Other Therapeutic Substance into Peripheral Vein, Percutaneous Approach (ICD-10-PCS; principal; 2022-05-06)
DX: F43.0 Acute stress reaction (principal); R00.2 Palpitations
CPT/HCPCS: 0241U-QW; 36415; 70450-TC; 71046-TC-FY; 72125-TC; 72131-TC; 80053; 83735; 84439; 84443; 84484; 85025; 85651; 86140; 93005; 93010; 99285-25

== ENCOUNTER 2022-08-26 08:06 | Emergency (ER) | payer OTHER ==
[2022-08-26 08:14] VITALS: BP 140/79; PULSE 73; RESP 17; TEMP 97.9; BMI 25.0
[2022-08-26] MEDS ORDERED: ACETAMINOPHEN 1000 MG/100 ML BAG IVPB ONE (08:52)
[2022-08-26] MEDS ORDERED: ONDANSETRON 4 MG/2 ML VIAL IVPUSH ONE (08:52)
[2022-08-26] MEDS ORDERED: SODIUM CHLORIDE 0.9% 500 ML INFUS.BAG IV ONE (08:52)
[2022-08-26] MEDS ORDERED: ACETAMINOPHEN INJECTION 100 ML IVPB ONE (09:05)
[2022-08-26] MEDS ORDERED: ONDANSETRON 4 MG/2 ML VIAL ONE (09:05)
[2022-08-26 10:38] LABS: BASO % 0.6 % (0-2.0); EOS % 2.4 % (0-4.5); HEMATOCRIT 48.6 % (35.4-49); HEMOGLOBIN 16.3 GM/dL (11.7-16.9); LYMPH % 18.9 % (8-40); MCH 28.6 pg (25.7-33.7); MCHC 33.5 g/dl (32.0-35.9); MEAN CELL VOLUME 85.5 fl (80-96); MEAN PLT VOLUME 8.6 fl (7.5-11.1); MONO % 8.5 % (3.8-10.2); NEUT % 69.6 % (42.8-82.8); PLATELET COUNT 198 10^3/uL (134-434); RBC 5.68 M/mm3 (4.00-5.60); RDW 13.2 % (11.9-15.9)
[2022-08-26 10:41] LABS: INR 0.97 (0.83-1.09); PROTHROMBIN TIME (PATIENT) 11.3 SEC (9.7-13.0)
[2022-08-26 10:44] LABS: ACTIVATED PTT 32.5 SECONDS (25.2-36.5)
[2022-08-26 11:01] LABS: POTASSIUM 4.4 mmol/L (3.5-5.1)
[2022-08-26 11:04] LABS: CALCIUM 9.4 mg/dL (8.5-10.1)
[2022-08-26 11:05] LABS: ALBUMIN 4.1 g/dl (3.4-5.0); BLOOD UREA NITROGEN 13.5 mg/dL (7-18); MAGNESIUM 2.1 mg/dL (1.8-2.4)
[2022-08-26 11:10] LABS: BILIRUBIN,TOTAL 0.6 mg/dL (0.2-1); TOT PROT 7.6 g/dl (6.4-8.2)
== END 2022-08-26 12:10 | disposition home or self-care (01) ==
LOC: JER 08:06
PROC: 3E033NZ Introduction of Analgesics, Hypnotics, Sedatives into Peripheral Vein, Percutaneous Approach (ICD-10-PCS; principal; 2022-08-26)
PROC: 3E033GC Introduction of Other Therapeutic Substance into Peripheral Vein, Percutaneous Approach (ICD-10-PCS; 2022-08-26)
DX: R42 Dizziness and giddiness (principal); R00.2 Palpitations; R07.9 Chest pain, unspecified
CPT/HCPCS: 36415; 71046-TC-FY; 80053; 83735; 84443; 84484; 85025; 85379; 85610; 85730; 93005; 93010; 99285-25

== ENCOUNTER 2022-11-23 10:40 | Emergency (ER) | payer OTHER ==
[2022-11-23 10:46] VITALS: BP 123/81; PULSE 90; RESP 20; TEMP 98.4; BMI 23.3
[2022-11-23] MEDS ORDERED: ACETAMINOPHEN 325 MG TABLET (FP) PO ONE (11:07)
[2022-11-23] MEDS ORDERED: ACETAMINOPHEN 325 MG TABLET (FP) ONE (11:14)
== END 2022-11-23 12:55 | disposition home or self-care (01) ==
LOC: JERFT 10:40
DX: R09.81 Nasal congestion (principal); R05.9 Cough, unspecified; J02.9 Acute pharyngitis, unspecified; H92.09 Otalgia, unspecified ear; M79.10 Myalgia, unspecified site; R50.9 Fever, unspecified; J06.9 Acute upper respiratory infection, unspecified; Z20.822 Contact with and (suspected) exposure to COVID-19
CPT/HCPCS: 0241U-QW; 87651; 99283-25

== ENCOUNTER 2023-01-22 12:16 | Emergency (ER) | payer OTHER ==
[2023-01-22 12:42] VITALS: BP 145/80; PULSE 75; RESP 18; TEMP 98.5; BMI 25.0
[2023-01-22] MEDS ORDERED: MAG HYDROX/AL HYDROX/SIMETH 30 ML UNIT-DOSE CUP PO ONE (13:45)
[2023-01-22] MEDS ORDERED: PANTOPRAZOLE SODIUM 40 MG VIAL IVPUSH ONE (13:45)
[2023-01-22] MEDS ORDERED: SODIUM CHLORIDE 0.9% 500 ML INFUS.BAG IV ONE (13:46)
[2023-01-22] MEDS ORDERED: KETOROLAC TROMETHAMINE 15 MG/ML VIAL IVPUSH ONE (13:47)
[2023-01-22] MEDS ORDERED: MAG HYDROX/AL HYDROX/SIMETH 30 ML UNIT-DOSE CUP ONE (14:11)
[2023-01-22] MEDS ORDERED: PANTOPRAZOLE SODIUM 40 MG VIAL ONE (14:11)
[2023-01-22] MEDS ORDERED: KETOROLAC TROMETHAMINE 15 MG/ML VIAL ONE (14:11)
[2023-01-22 14:50] LABS: BASO % 0.6 % (0-2.0); EOS % 2.1 % (0-4.5); HEMATOCRIT 48.3 % (35.4-49); HEMOGLOBIN 16.1 GM/dL (11.7-16.9); LYMPH % 14.9 % (8-40); MCH 28.2 pg (25.7-33.7); MCHC 33.4 g/dl (32.0-35.9); MEAN CELL VOLUME 84.5 fl (80-96); MEAN PLT VOLUME 7.9 fl (7.5-11.1); MONO % 8.1 % (3.8-10.2); NEUT % 74.3 % (42.8-82.8); PLATELET COUNT 230 10^3/uL (134-434); RBC 5.71 M/mm3 (4.00-5.60); RDW 12.9 % (11.9-15.9); WHITE BLOOD COUNT 7.9 K/mm3 (4.0-10.0)
[2023-01-22 15:13] LABS: CHLORIDE 104 mmol/L (98-107); POTASSIUM 3.9 mmol/L (3.5-5.1); SODIUM 137 mmol/L (136-145)
[2023-01-22 15:15] LABS: ANION GAP 4 mmol/L (4-13); CALCIUM 9.2 mg/dL (8.5-10.1); CO2 28 mmol/L (21-32); LIPASE 78 U/L (73-393); MAGNESIUM 2.1 mg/dL (1.8-2.4)
[2023-01-22 15:16] LABS: ALBUMIN 4.2 g/dl (3.4-5.0); GLUCOSE,RANDOM 90 mg/dL (74-106)
[2023-01-22 15:17] LABS: AMYLASE 31 U/L (25-115)
[2023-01-22 15:18] LABS: CREATININE 1.1 mg/dL (0.55-1.3); SGOT/AST 19 U/L (15-37); SGPT/ALT < 6 U/L (13-61)
[2023-01-22 15:19] LABS: PHOSPHOROUS 2.6 mg/dL (2.5-4.9)
[2023-01-22 15:20] LABS: TOT PROT 7.8 g/dl (6.4-8.2)
[2023-01-22 15:21] LABS: BILIRUBIN,TOTAL 0.8 mg/dL (0.2-1)
[2023-01-22 15:22] LABS: ALK PHOS 69 U/L (45-117)
[2023-01-22 16:06] LABS: HIV INTERPRETATION NEGATIVE (NEGATIVE)
[2023-01-22] MEDS ORDERED: ONDANSETRON 4 MG/2 ML VIAL IVPUSH ONE (20:08)
[2023-01-22] MEDS ORDERED: ONDANSETRON 4 MG/2 ML VIAL ONE (20:14)
== END 2023-01-22 20:42 | disposition home or self-care (01) ==
LOC: JER 12:16
PROC: 3E0333Z Introduction of Anti-inflammatory into Peripheral Vein, Percutaneous Approach (ICD-10-PCS; principal; 2023-01-22)
PROC: 3E033GC Introduction of Other Therapeutic Substance into Peripheral Vein, Percutaneous Approach (ICD-10-PCS; 2023-01-22)
PROC: 3E033GC Introduction of Other Therapeutic Substance into Peripheral Vein, Percutaneous Approach (ICD-10-PCS; 2023-01-22)
DX: R10.11 Right upper quadrant pain (principal); R10.31 Right lower quadrant pain; R19.7 Diarrhea, unspecified; R11.0 Nausea; R68.83 Chills (without fever); I88.0 Nonspecific mesenteric lymphadenitis; K52.9 Noninfective gastroenteritis and colitis, unspecified
CPT/HCPCS: 36415; 74177-TC; 76705-TC; 80053; 82150; 83690; 83735; 84100; 85025; 87389; 99285-25; Q9967